=== PATIENT | male | born 1940 | race Caucasian/White ===

== ENCOUNTER 2016-09-08 18:29 | Inpatient (IN) | payer MEDICARE ==
--- NOTE | 2016-09-08 19:16 | Emergency Department Record ---
History of Present Illness - General Chief complaint: Weakness Stated complaint: WEAK/FEVER Time Seen by Provider: 09/08/16 19:15 Source: Patient Mode of Arrival: EMS Limitations: No limitations - History of Present Illness Initial comments: The patient is here due to not feeling well for one day. He was doing very well earlier in the day and did develop a cough last evening. Later this evening he developed weakness all over with a fever and now is unable to ambulate. He was going up and down the stairs this AM but now is to weak to get up and walk around the room. His cough is worse but is not productive of any sputum. He does deny any CP, SOB, or AP. MD Complaint: Generalized weakness Onset/Timin -: Days(s) Location: Generalized Severity scale (1-10): 5 Quality: Aching Consistency: Constant - Related Data Home Medications Medication Instructions Recorded Confirmed Last Taken Ferrous Sulfate 325 mg PO DAILY 03/24/16 03/24/16 03/24/16 Losartan Potassium [Cozaar] 25 mg PO DAILY 03/24/16 03/24/16 03/24/16 Magnesium Oxide [Mag Ox] 400 mg PO BID 03/24/16 03/24/16 03/24/16 Metformin HCl 1,000 mg PO BID 03/24/16 03/24/16 03/24/16 Metoprolol Tartrate 12.5 mg PO BID 03/24/16 03/24/16 03/24/16 Potassium Chloride [Klor-Con] 10 meq PO DAILY 03/24/16 03/24/16 03/24/16 Simvastatin [Zocor] 40 mg PO QHS 03/24/16 03/24/16 03/24/16 Tamsulosin HCl 1 cap PO DAILY 03/25/16 03/25/16 Unknown Timolol Maleate [Timoptic] 1 drop EACH EYE BID 03/25/16 03/25/16 Unknown Previous Rx's Medication Instructions Recorded Enoxaparin Sodium [Lovenox] 40 mg SQ DAILY syr 03/26/16 Nystatin 15 gm TOP ASDIR PRN #0 cream 03/26/16 Insulin Detemir [Levemir Flextouch] 45 units SQ QAM #0 04/15/16 Levofloxacin [Levaquin] 500 mg PO Q48H #6 tablet 04/15/16 Allergies Allergy/AdvReac Type Severity Reaction Status Date / Time No Known Drug Allergies Allergy Verified 09/08/16 18:33 Travel Screening - Travel/Exposure Within Last 30 Days Have you traveled within the last 30 days?: No - Travel Symptoms Symptom Screening: None Review of Systems Constitutional: Reports: Chills, Fever, Malaise Eyes: Denies: Eye discharge ENT: Reports: Congestion Respiratory: Reports: Cough. Denies: Dyspnea Cardiovascular: Denies: Arrhythmia, Chest pain Endocrine: Reports: Fatigue Gastrointestinal: Denies: Diarrhea, Vomiting Genitourinary: Denies: Dysuria Musculoskeletal: Denies: Arthralgia Skin: Denies: Bruising Past Medical History - SOCIAL HISTORY Smoking Status: Former smoker - RESPIRATORY Hx Respiratory Disorders: No - CARDIOVASCULAR Hx Cardio Disorders: Yes Hx Hypertension: Yes Hx Vascular Disease: Yes - NEURO Hx Neuro Disorders: Yes Hx Seizures: No - GI Hx GI Disorders: No - Hx Genitourinary Disorders: Yes Comment:: incontinentnce issues - ENDOCRINE Hx Endocrine Disorders: Yes Hx Diabetes: Yes Hx Thyroid Disease: No - MUSCULOSKELETAL Hx Musculoskeletal Disorders: Yes Hx Arthritis: Yes - PSYCH Hx Psych Problems: No - HEMATOLOGY/ONCOLOGY Hx Hematology/Oncology Disorders: Yes Hx Cancer: Yes (multiple myeloma) Hx Chemotherapy: Yes Hx Radiation Therapy: No Family Medical History Any Significant Family History?: Yes Hx Cancer: Brother/Sister Hx Heart Disease: Father, Mother Physical Exam - General General Appearance: Alert, Oriented x3, Cooperative, No acute distress - Head Head exam: Atraumatic, Normocephalic, Normal inspection - Eye Eye exam: Normal appearance, PERRL - ENT Throat exam: Normal inspection. negative: Tonsillar erythema, Tonsillar exudate - Neck Neck exam: Normal inspection, Full ROM. negative: Tenderness - Respiratory Respiratory exam: Normal lung sounds bilaterally. negative: Respiratory distress - Cardiovascular Cardiovascular Exam: Regular rate, Normal rhythm, Normal heart sounds - GI/Abdominal GI/Abdominal exam: Soft, Normal bowel sounds. negative: Tenderness - Extremities Extremities exam: Normal inspection, Full ROM, Normal capillary refill, Pedal edema (chronic.). negative: Tenderness - Neurological Neurological exam: Abnormal gait, Alert. negative: Motor sensory deficit, Normal gait - Psychiatric Psychiatric exam: negative: Anxious, Depressed Course Vital Signs 09/08/16 18:34 Temperature 102.6 F H Pulse Rate 60 Respiratory 24 Rate Blood Pressure 113/54 Pulse Ox 94 L - Reevaluation(s) Reevaluation #1: The patient is doing a little better but is still coughing and very weak. I did explain the results of the tests to him and family. Due to the extent of his illness I did recommend hospital admission and he agrees. I then did discuss the case with DR. Garcia and he accepts the admission. 09/08/16 20:38 Medical Decision Making - Data Complexity MDM Data: Labs Ordered and/or Reviewed, X-Ray Ordered and/or Reviewed - Lab Data Result diagrams: 09/08/16 18:53 09/08/16 18:53 - Radiology Data Radiology results: Report reviewed (CXR: Neg.) Disposition Disposition: Admit Clinical Impression: Pneumonia Qualifiers: Pneumonia type: due to unspecified organism Laterality: unspecified laterality Lung location: unspecified part of lung Qualified Code(s): J18.9 - Pneumonia, unspecified organism Disposition: Still a Patient at [facility] Decision to Admit: Admit from ER Decision to Admit Date: 09/08/16 Decision to Admit Time: 20:40 Accepting Physician: Radha Time Discussed w/Accepting Physician: 20:40 Condition: (2) Stable Forms: Patient Portal Access Time of Disposition: 20:40
[2016-09-08] MEDS ORDERED: ACETAMINOPHEN 325 MG TAB PO ONE (19:20)
[2016-09-08] MEDS ORDERED: 0.9 % SODIUM CHLORIDE 1,000 ML BAG IV ONE (19:21)
[2016-09-08 19:29] LABS: HEMATOCRIT 33.7 % (42.0-52.0); MEAN CELL VOLUME 86.4 fl (81-97); MEAN CORPUSCULAR HEMOGLOBIN 28.2 pg (27-33); MEAN CORPUSCULAR HGB CONC 32.6 g/dl (32-36); MEAN PLATELET VOLUME 12.5 fl (7.4-10.4); PLATELET COUNT 115 K/uL (130-400); RED CELL DISTRIBUTION WIDTH 16.7 % (11.5-14.5); WHITE BLOOD COUNT W/O DIFF 4.2 K/uL (4.2-12.2)
[2016-09-08 19:38] LABS: PLATELET ESTIMATE NORMAL (NORMAL)
[2016-09-08 19:41] LABS: ANION GAP 15.2 (7-16); CARBON DIOXIDE 24.8 mmol/L (22-30); CREATININE 1.5 mg/dL (0.66-1.25)
[2016-09-08 19:56] LABS: INFLUENZA A NEGATIVE (NEGATIVE); INFLUENZA B NEGATIVE (NEGATIVE)
[2016-09-08 20:10] LABS: URINE APPEARANCE CLEAR; URINE BILIRUBIN NEGATIVE (NEGATIVE); URINE BLOOD NEGATIVE (NEGATIVE); URINE COLOR YELLOW; URINE KETONE NEGATIVE (NEGATIVE); URINE LEUKOCYTE ESTERASE NEGATIVE (NEGATIVE); URINE NITRITE NEGATIVE (NEGATIVE); URINE PROTEIN NEGATIVE (NEGATIVE); URINE UROBILINOGEN 0.2 E.U./dL (0.20 - 1.00)
[2016-09-08 20:12] LABS: URINE GLUCOSE (UA) >=1000 mg/dL (NEGATIVE)
[2016-09-08] MEDS ORDERED: CEFTRIAXONE SODIUM 1 GM in 0.9 % SODIUM CHLORIDE 100ML 100 ML IVPB ONE (20:24)
[2016-09-08] MEDS ORDERED: OSTELTAMIVIR 75 MG CAP PO ONE (20:24)
[2016-09-08] MEDS ORDERED: AZITHROMYCIN 500 MG in 0.9 % SODIUM CHLORIDE 250ML 250 ML IVPB ONE (20:24)
[2016-09-08] MEDS ORDERED: PROPYLENE GLYCOL OP SCH (21:14)
[2016-09-08] MEDS ORDERED: LENALIDOMIDE 10 MG PO SCH (21:14)
[2016-09-08] MEDS ORDERED: PEG OP SCH (21:14)
[2016-09-08] MEDS ORDERED: TIMOLOL MALEATE EACH EYE SCH (22:00)
[2016-09-08] MEDS: 0.9 % SODIUM CHLORIDE 1000ML 1,000 ML IV PRN (22:14)
[2016-09-08] MEDS: CEFTRIAXONE SODIUM 1 GM in 0.9 % SODIUM CHLORIDE 100ML 100 ML IVPB SCH (22:14)
[2016-09-08] MEDS: METOPROLOL TART 25 MG TABLET PO SCH (22:15)
[2016-09-08] MEDS: IPRATROPIUM/ALBUTEROL (0.5MG/3MG) NEB INH SCH (22:27)
[2016-09-09] MEDS: Non-Formulary MISC (Metformin Hcl [Metformin Hcl] 1,000 MG) PO SCH ×2 (00:15→12:18)
[2016-09-09] MEDS: MAGNESIUM OXIDE 400 MG TABLET PO SCH ×3 (00:15→21:37)
[2016-09-09] MEDS: AZITHROMYCIN 500 MG in 0.9 % SODIUM CHLORIDE 250ML 250 ML IVPB SCH ×2 (00:16→00:50)
[2016-09-09] MEDS: IPRATROPIUM/ALBUTEROL (0.5MG/3MG) NEB INH SCH ×6 (02:45→21:38)
[2016-09-09] MEDS: PANTOPRAZOLE SODIUM 40 MG TABLET PO SCH (06:08)
[2016-09-09 06:38] LABS: HEMATOCRIT 33.7 % (42.0-52.0); HEMOGLOBIN 10.5 gm/dl (14.0-18.0); MEAN CELL VOLUME 89.2 fl (81-97); MEAN CORPUSCULAR HGB CONC 31.2 g/dl (32-36); MEAN PLATELET VOLUME 12.2 fl (7.4-10.4); PLATELET COUNT 115 K/uL (130-400); RED BLOOD COUNT 3.78 M/uL (4.40-5.70); RED CELL DISTRIBUTION WIDTH 17.2 % (11.5-14.5); WHITE BLOOD COUNT W/O DIFF 3.9 K/uL (4.2-12.2)
[2016-09-09 06:43] LABS: MEAN CORPUSCULAR HEMOGLOBIN 27.7 pg (27-33)
[2016-09-09 06:49] LABS: ALB/GLOB RATIO 1.6 (1.1-1.8); ALBUMIN 3.6 gm/dL (3.5-5.0); ANION GAP 14.9 (7-16); BILIRUBIN,TOTAL 0.44 mg/dL (0.2-1.3); CARBON DIOXIDE 25.1 mmol/L (22-30); CREATININE 1.5 mg/dL (0.66-1.25); TOTAL PROTEIN 5.8 gm/dL (6.3-8.2)
[2016-09-09 06:50] LABS: PLATELET ESTIMATE NORMAL (NORMAL)
--- NOTE | 2016-09-09 07:23 | RADIOLOGY REPORT ---
EXAM: CHEST, TWO VIEWS HISTORY: SORE THROAT, ACUTE NONPRODUCTIVE COUGH. TECHNIQUE: Two views of the chest were obtained. Comparison: Chest x-ray 03/24/16. FINDINGS: Sternotomy wires are present. The lungs are clear. The cardiomediastinal silhouette is top normal in size. The diaphragm is unremarkable. Moderate to advanced disk disease in the thoracic spine. IMPRESSION: NO ACUTE INTRATHORACIC PROCESS. JOB NUMBER: [id number] MTDD
[2016-09-09] MEDS: LEVEMIR FLEXTOUCH 100 UNIT/ML INSULIN PEN SQ SCH (08:25)
[2016-09-09] MEDS ORDERED: ACETAMINOPHEN 325 MG TAB PO PRN (08:56)
[2016-09-09] MEDS: CEFTRIAXONE SODIUM 1 GM in 0.9 % SODIUM CHLORIDE 100ML 100 ML IVPB SCH ×2 (09:54→21:27)
[2016-09-09] MEDS ORDERED: INSULIN ASPART 7 UNIT SQ SCH (10:00)
[2016-09-09] MEDS ORDERED: FUROSEMIDE 20 MG TABLET PO SCH (10:00)
[2016-09-09] MEDS ORDERED: LEVEMIR FLEXTOUCH 100 UNIT/ML INSULIN PEN SQ SCH (10:00)
[2016-09-09] MEDS ORDERED: Non-Formulary MISC (Omeprazole [Omeprazole] 20 MG) PO SCH (10:00)
[2016-09-09] MEDS: OSTELTAMIVIR 75 MG CAP PO SCH ×2 (11:09→21:36)
[2016-09-09] MEDS: FERROUS SULFATE 325 MG TAB PO SCH (11:09)
[2016-09-09] MEDS: LOSARTAN POTASSIUM 25 MG TABLET PO SCH (11:09)
[2016-09-09] MEDS: TAMSULOSIN HCL 0.4 MG CAP.ER.24H PO SCH (11:09)
[2016-09-09] MEDS: ASPIRIN 325 MG TAB ENTERIC-COATED PO SCH (11:10)
[2016-09-09] MEDS: ENOXAPARIN 30 MG/0.3 ML SYR SQ SCH (11:10)
[2016-09-09] MEDS: METOPROLOL TART 25 MG TABLET PO SCH ×2 (11:10→21:37)
[2016-09-09] MEDS: TIMOLOL MALEATE 0.5% 5ML BTL OPTH SCH ×2 (11:40→21:38)
[2016-09-09] MEDS: METFORMIN 500 MG TABLET PO SCH ×2 (12:15→17:25)
[2016-09-09] MEDS: NOVOLOG FLEXPEN (INSULIN ASPART) 100 UNITS/ML SQ SCH ×2 (12:15→17:26)
[2016-09-09] MEDS ORDERED: NOVOLOG FLEXPEN (INSULIN ASPART) 100 UNITS/ML SQ SCH ×2 (17:00→18:00)
[2016-09-09] MEDS: 0.9 % SODIUM CHLORIDE 1000ML 1,000 ML IV PRN (21:31)
[2016-09-10] MEDS ORDERED: AZITHROMYCIN 500 MG in 0.9 % SODIUM CHLORIDE 250ML 250 ML IVPB SCH (00:30)
[2016-09-10] MEDS: IPRATROPIUM/ALBUTEROL (0.5MG/3MG) NEB INH SCH ×2 (06:09→09:57)
[2016-09-10] MEDS: PANTOPRAZOLE SODIUM 40 MG TABLET PO SCH (07:09)
[2016-09-10] MEDS: METFORMIN 500 MG TABLET PO SCH (08:24)
[2016-09-10] MEDS: LEVEMIR FLEXTOUCH 100 UNIT/ML INSULIN PEN SQ SCH (08:26)
[2016-09-10] MEDS: CEFTRIAXONE SODIUM 1 GM in 0.9 % SODIUM CHLORIDE 100ML 100 ML IVPB SCH (08:29)
[2016-09-10] MEDS: METOPROLOL TART 25 MG TABLET PO SCH (09:50)
[2016-09-10] MEDS: ENOXAPARIN 30 MG/0.3 ML SYR SQ SCH (09:51)
[2016-09-10] MEDS: MAGNESIUM OXIDE 400 MG TABLET PO SCH (09:51)
[2016-09-10] MEDS: ASPIRIN 325 MG TAB ENTERIC-COATED PO SCH (09:51)
[2016-09-10] MEDS: FERROUS SULFATE 325 MG TAB PO SCH (09:51)
[2016-09-10] MEDS: LOSARTAN POTASSIUM 25 MG TABLET PO SCH (09:51)
[2016-09-10] MEDS: OSTELTAMIVIR 75 MG CAP PO SCH (09:51)
[2016-09-10] MEDS: TAMSULOSIN HCL 0.4 MG CAP.ER.24H PO SCH (09:51)
[2016-09-10] MEDS: TIMOLOL MALEATE 0.5% 5ML BTL OPTH SCH (09:52)
[2016-09-10] MEDS: NOVOLOG FLEXPEN (INSULIN ASPART) 100 UNITS/ML SQ SCH (12:11)
--- NOTE | 2016-09-10 13:50 | Discharge Note ---
Discharge Note - Date Date of Discharge Note: 09/10/16 Disposition: Home, Self-Care Condition: (1) Good Additional Instructions: follow up with Dr. Osman next monday as scheduled per call the cancer Dr. Han to inform them what happened use levemir at 30 units per day and if his glucose goes increase to 35 units zithromycin 500 mg daily for 7 days tamiflu 75 mg twice a day for 3 days restart bactrim three times a week after the zithromycin is gone Prescriptions: Azithromycin 500 mg PO DAILY #7 tablet Oseltamivir Phosphate [Tamiflu] 75 mg PO BID #6 capsule Referrals: BERENICE RAMIRES D.O. [Primary Care Provider] - Forms: Patient Portal Access Activity at Discharge: Increase Activity as Tolerated Diet at Discharge: Diabetic Diet
[2016-09-11] MEDS ORDERED: LEVEMIR FLEXTOUCH 100 UNIT/ML INSULIN PEN SQ SCH (08:00)
--- NOTE | 2016-09-12 08:24 | History and Physical Report ---
DATE OF DICTATION: 09/09/2016. CHIEF COMPLAINT: Fever, cough, congestion. HISTORY OF PRESENT ILLNESS: This 76-year-old male presented to the emergency department with congestion, weakness, a cough, and a fever. His is his caregiver and she states that the congestion started two days ago. The cough started about 24 hours prior to coming to the emergency room. The fever started the day of admission. He was so weak he could not walk. He was evaluated in the emergency department by Dr. Kearney. Because of his debilitated state and his symptoms, he was admitted to the hospital for infection, bronchitis, possible pneumonia. Chest x-ray was negative. The patient was given Tylenol and fluids. PAST MEDICAL HISTORY: Multiple myeloma diagnosed in March of 2016. He is being treated by Dr. Ham, the oncologist at [facility]. He has diabetes mellitus and is on Levemir, NovoLog, and metformin. He has gastroesophageal reflux disease and glaucoma. He had a cerebrovascular accident in 2011. That caused short-term memory loss and also affected his speech and right-sided weakness. However, this has resolved. He had an aortic valve replacement in 2011 with a pig valve. He is not on any anticoagulants. He has stage 3 kidney disease. His next appointment with his family physician, Dr. Osman, is next Monday. He was supposed to see his doctor today. He has an insole rasper for diabetic retinopathy, [employer] [facility]. Low back pain. PAST SURGICAL HISTORY: Aortic valve replacement with a pig valve in 2011, tonsils and adenoids as a child, right knee replacement, rectal surgery, bone marrow biopsy in March of 2016 when he got his diagnosis of multiple myeloma. MEDICATIONS ON ADMISSION: He uses NovoLog to scale, but he only uses the scale at noon time and at dinnertime. He uses Levemir 35 units every morning, omeprazole 20 mg q. daily, magnesium oxide 400 mg b.i.d., Lasix 20 mg daily, aspirin 325 mg a day. He uses Bactrim prophylactically to prevent opportunist infections three times a week. We will stop that while he is in the hospital getting treatment. Ferrous sulfate 325 mg daily. He uses Artificial Tears for dry eyes, Timoptic one drop each eye b.i.d., tamsulosin 0.4 mg daily, Losartan 25 mg daily, metoprolol tartrate 12.5 mg b.i.d. He uses chemotherapy capsules; a regimen of 21 days. He then uses Decadron after the regimen of Revlimid. He takes metformin 1,000 mg b.i.d. ALLERGIES: No known drug allergies. FAMILY/PSYCHOSOCIAL HISTORY: His brother and sister had cancer. His father and mother had heart disease. He is a former smoker; cigars and pipes. He quit in 2004. No alcohol or drug use. REVIEW OF SYSTEMS: HEENT: See Chief Complaint. He had congestion for two days and a cough for 24 hours. No sore throat. Cardiovascular: No chest pain, palpitations, or arrhythmias. Respiratory: He has had a cough for 24 hours and a fever. He is an ex-smoker; he quit in 2004. Gastrointestinal: No nausea, vomiting, diarrhea, black stools, or bloody stools. Genitourinary: No dysuria, hematuria, frequency, or burning on urination. Musculoskeletal: No joint or bone abnormalities. He is walking to the bathroom now and sitting in a chair. Neurologic: No cerebrovascular accident, paralysis, or paraesthesias. He does have dementia. He is oriented to name but not time or place. Endocrine: Diabetes mellitus. No hypothyroidism. Integument: No rash, ulcers, changing moles, or yellow skin. Hematologic: He has multiple myeloma diagnosed in March of 2016. PHYSICAL EXAMINATION: General: Height is 5 feet, 3 inches. Weight is 182 pounds. Vital Signs: Temperature is 100.6, pulse is 62, blood pressure is 101/46, respiratory rate is 60, pulse oximetry is 98% on room air. HEENT: Pupils are equal, round, and reactive to light and accommodation. Extraocular muscles are intact. The throat is clear. The nose is clear. The tympanic membranes are álvarez. There is congestion in the sinuses. He has a hoarse voice. He has a cough. Neck: The neck is supple. No jugular venous distension. Carotid pulses are equal bilaterally. Cardiovascular: Regular rate and rhythm without murmurs, clicks, rubs, or gallops. Respiratory: He has a cough and congestion. Abdomen: Soft and nontender. No hepatosplenomegaly. No masses. No tenderness. Bowel sounds are active. No bruit. Extremities: No pitting edema. No cyanosis. No clubbing. Full range of motion. Peripheral pulses are good. Breasts: Normal male breasts. Rectal and Genitalia Examination: Deferred. Neurological Examination: Cranial nerves II through XII are intact. No gross defect. Sensation is normal. Strength is normal. Deep tendon reflexes are equal bilaterally. Babinski is negative. Mental Status: He is oriented to his name but not to time and place. IMPRESSIONS: 1. Viral bronchitis. 2. Fever. 3. Dementia, vascular, after a stroke in 2011. 4. Diabetes mellitus, on insulin with Levemir, NovoLog, and metformin. He is a type 2 diabetic. 5. Multiple myeloma, undergoing treatment with chemotherapy with Revlimid which he is on 21 days and off 7 days. He then uses Decadron during his chemotherapy. 6. He also has benign prostatic hyperplasia. 7. He has stage 3 kidney disease. 8. Gastroesophageal reflux disease. 9. Glaucoma. 10. Hypertension. PLAN: Intravenous Rocephin, intravenous azithromycin, oral Tamiflu 75 mg b.i.d. , and cautious hydration. Oxygen and DuoNeb treatments. Tanner Garcia D.O. Date Time JOB NUMBER: [id number] MTDD
--- NOTE | 2016-09-12 13:33 | Discharge Summary ---
DISCHARGE DIAGNOSES: 1. Viral bronchitis. 2. Diabetes mellitus, type 2. 3. Dementia. 4. Status post multiple myeloma. 5. Status post gastroesophageal reflux disease. 6. Status post aortic valve replacement. 7. Status post glaucoma. ATTENDING PHYSICIAN: Tanner Garcia D.O. REASON FOR HOSPITALIZATION: Congestion and cough which started two days prior. HISTORY OF THE PRESENT ILLNESS: The cough got much worse one day prior to admission. He came to the emergency department and was seen by Dr. Kearney. He was admitted to the hospital for possible pneumonia, a fever, weakness, and an inability to ambulate. The patient has a history of multiple myeloma. His oncologist is Dr. Ham at [facility]. His primary physician is Dr. Varun Osman. The patient had a fever on and off for the first 24 hours in the hospital. He is afebrile now. He is eating, drinking, and walking to the bathroom without any difficulties. His , Nicole, is in the room with him. SIGNIFICANT FINDINGS FROM EXAMINATION: LABORATORY DATA: White blood cell count in the emergency department was 4,200, hemoglobin was 11.0. Potassium was 4.2. BUN was 40 and creatinine was 1.5. His glucose was a little bit high at 307. His white count yesterday was 3,900. Hemoglobin was 10.5. The potassium remained at 4.3. His glucose did go a little bit low. He was taking a little bit of extra insulin here. Initially in the computer it said that he was taking 45 units of Levemir insulin a day. However, his tells me that he was only taking 30 units a day. His sugar did drop down this morning to 47. It was at 754 this morning. He was given some food and it came up to 58. DIAGNOSTIC DATA: Chest x-ray was negative. THERAPY PROVIDED: The patient was given therapy in the hospital. He was given intravenous Rocephin 1.0 gm q. 12 hours, azithromycin 500 mg q. daily, Tamiflu 75 mg b.i.d. Will continue that for five days and will continue the azithromycin. HOSPITAL COURSE: He gradually improved. CONDITION AT DISCHARGE: Much improved. DISCHARGE INSTRUCTIONS: Follow up with Dr. Varun Osman in [place] next week or sooner if he is having troubles. He has an appointment on Monday. His Levemir should be at 30 units a day. Will give him his 30 units today prior to discharge at around noontime. He is also on omeprazole 20 mg q. daily and magnesium oxide 400 mg b.i.d. Lasix 20 mg q. daily will be restarted at home. Aspirin 325 mg q. daily. When he is off his antibiotics that we are prescribing he can go back on his Bactrim three times a week. This is a prophylactic medication because of his multiple myeloma. Ferrous sulfate 325 mg q. daily, Timolol optic eye drops one drop in each eye b.i.d. Tamsulosin 0.4 mg q. daily, Losartan 25 mg q. daily, metoprolol tartrate 12.5 mg b.i.d., and metformin 1,000 mg b.i.d. He will also continue his Revlimid the way he was scheduled to take it prior to coming into the hospital. This is his cancer medication. Tanner Garcia D.O. Date Time JOB NUMBER: [id number] cc: Jaclyn Biggs
[2016-09-15] MEDS ORDERED: DEXAMETHASONE 20 MG PO SCH (10:00)
== END 2016-09-10 14:55 | disposition home or self-care (01) | DRG 202 ==
LOC: ER 18:29 → MEDSURG 21:11
PROVIDERS: ADMIT Emergency Medicine; ATTEND Emergency Medicine
DX: R50.9 Fever, unspecified (principal); R05 Cough; R53.1 Weakness; J20.9 Acute bronchitis, unspecified; J20.8 Acute bronchitis due to other specified organisms; E11.9 Type 2 diabetes mellitus without complications; C90.00 Multiple myeloma not having achieved remission; I69.911 Memory deficit following unspecified cerebrovascular disease; I69.919 Unspecified symptoms and signs involving cognitive functions following unspecified cerebrovascular disease; F01.50 Vascular dementia, unspecified severity, without behavioral disturbance, psychotic disturbance, mood disturbance, and anxiety; E11.319 Type 2 diabetes mellitus with unspecified diabetic retinopathy without macular edema; Z79.84 Long term (current) use of oral hypoglycemic drugs; I69.920 Aphasia following unspecified cerebrovascular disease; Z95.2 Presence of prosthetic heart valve; N18.3 Chronic kidney disease, stage 3 (moderate); Z79.4 Long term (current) use of insulin; I10 Essential (primary) hypertension
CPT/HCPCS: 36416; 71020; 80048; 80053; 81003; 82948; 85027; 86140; 87400; 94640; 94760; 96365; 99223; 99239; 99285; J0456; J1650; J7030; J7050

== ENCOUNTER 2016-11-15 14:59 | Inpatient (IN) | payer MEDICARE ==
--- NOTE | 2016-11-15 15:24 | Emergency Department Record ---
History of Present Illness - General Chief complaint: Hypergylcemia Stated complaint: ELEVATED SUGAR LEVEL Time Seen by Provider: 11/15/16 15:17 Source: Patient Mode of Arrival: Ambulatory - History of Present Illness Initial comments: The patient has been running "high" on his blood sugar today. Around 11:30 he was in the mid 400's and now his accu- check reads "high.' he states he feels fine otherwise. He is urinating a lot, but states he always does. He denies f, c , n, v, d, cp, cisco, ap, or other symptoms. He is scheduled to have a renal stent placed on . Onset/Timin -: Days(s) Improves with: None Worsens with: None Associated Symptoms: Denies other symptoms - [place] Coma Scale Eye Response: (4) Open spontaneously Motor Response: (6) Obeys commands Verbal Response: (5) Oriented Ayse Total: 15 - Related Data Home Medications Medication Instructions Recorded Confirmed Last Taken Ferrous Sulfate 325 mg PO DAILY 03/24/16 11/15/16 03/24/16 Losartan Potassium [Cozaar] 25 mg PO DAILY 03/24/16 11/15/16 03/24/16 Magnesium Oxide [Mag Ox] 400 mg PO BID 03/24/16 11/15/16 03/24/16 Metformin HCl 1,000 mg PO BID 03/24/16 11/15/16 03/24/16 Metoprolol Tartrate 12.5 mg PO BID 03/24/16 11/15/16 03/24/16 Tamsulosin HCl 0.4 mg PO DAILY 03/25/16 11/15/16 Unknown Timolol Maleate [Timoptic] 1 drop EACH EYE BID 03/25/16 11/15/16 Unknown Aspirin/Calcium Carbonate/Mag 325 mg PO DAILY 09/08/16 11/15/16 Unknown [Aspirin Buffered 325 mg Tab] Furosemide [Lasix] 20 mg PO DAILY 09/08/16 11/15/16 Unknown Insulin Aspart [Novolog Flexpen] See Protocol SQ 1200,1700 09/08/16 11/15/16 Insulin Aspart [Novolog] 7 units SQ 1700 09/08/16 11/15/16 Unknown Omeprazole 20 mg PO DAILY 09/08/16 11/15/16 Unknown Propylene Glycol/Peg 400/Pf 1 each OP ASDIR 09/08/16 11/15/16 Unknown [Systane 0.3-0.4% Eye Drops] Previous Rx's Medication Instructions Recorded Insulin Detemir [Levemir Flextouch] 30 units SQ QAM #0 09/10/16 Allergies Allergy/AdvReac Type Severity Reaction Status Date / Time No Known Drug Allergies Allergy Verified 09/08/16 18:33 Travel Screening - Travel/Exposure Within Last 30 Days Have you traveled within the last 30 days?: No Review of Systems Reviewed: No additional complaints except as noted below Constitutional: Reports: As per HPI. Denies: Chills, Fever, Malaise, Night sweats, Weakness, Weight change Eyes: Reports: As per HPI. Denies: Eye discharge, Eye pain, Photophobia, Vision change ENT: Reports: As per HPI. Denies: Congestion, Dental pain, Ear pain, Epistaxis , Hearing loss, Throat pain Respiratory: Reports: As per HPI. Denies: Cough, Dyspnea, Hemoptysis, Stridor, Wheezes Cardiovascular: Reports: As per HPI. Denies: Arrhythmia, Chest pain, Dyspnea on exertion, Edema, Murmurs, Orthopnea, Palpitations, Paroxysmal nocturnal dyspnea, Rheumatic Fever, Syncope Endocrine: Reports: As per HPI. Denies: Fatigue, Heat or cold intolerance, Polydipsia, Polyuria Gastrointestinal: Reports: As per HPI. Denies: Abdominal pain, Constipation, Diarrhea, Hematemesis, Hematochezia, Melena, Nausea, Vomiting Genitourinary: Reports: As per HPI. Denies: Dysuria, Frequency, Hematuria, Incontinence, Retention, Testicular pain, Testicular mass, Urgency Musculoskeletal: Reports: As per HPI. Denies: Arthralgia, Back pain, Gout, Joint swelling, Myalgia, Neck pain Skin: Reports: As per HPI. Denies: Bruising, Change in color, Change in hair/ nails, Lesions, Pruritus, Rash Neurological: Reports: As per HPI. Denies: Abnormal gait, Confusion, Headache, Numbness, Paresthesias, Seizure, Tingling, Tremors, Vertigo, Weakness Psychiatric: Reports: As per HPI. Denies: Anxiety, Auditory hallucinations, Depression, Homicidal thoughts, Suicidal thoughts, Visual hallucinations Hematological/Lymphatic: Reports: As per HPI. Denies: Anemia, Blood Clots, Easy bleeding, Easy bruising, Swollen glands Past Medical History - SOCIAL HISTORY Smoking Status: Former smoker Alcohol Use: None Drug Use: None - RESPIRATORY Hx Respiratory Disorders: Yes Hx Bronchitis: Yes Hx Pneumonia: Yes - CARDIOVASCULAR Hx Cardio Disorders: Yes Hx Hypertension: Yes Hx Vascular Disease: Yes Comment:: aortic valve replacement 2011 - NEURO Hx Neuro Disorders: Yes Hx CVA: Yes (2011) - GI Hx GI Disorders: Yes Hx Reflux: Yes - Hx Genitourinary Disorders: Yes Hx Kidney Stones: Yes Hx Renal Disease: Yes (stage 3 kidney failure) - ENDOCRINE Hx Endocrine Disorders: Yes Hx Diabetes: Yes Hx Thyroid Disease: No Comment:: blood sugars a little high due to steroids around 200 - MUSCULOSKELETAL Hx Musculoskeletal Disorders: Yes Hx Arthritis: Yes - PSYCH Hx Psych Problems: No - HEMATOLOGY/ONCOLOGY Hx Hematology/Oncology Disorders: Yes Hx Cancer: Yes (multiple myeloma dx's ) Hx Chemotherapy: Yes Hx Radiation Therapy: No Comment:: doing chemo tx in remission. Family Medical History Any Significant Family History?: Yes Hx Cancer: Brother/Sister Hx Heart Disease: Father, Mother Physical Exam - General General Appearance: Alert, Oriented x3, Cooperative, No acute distress - Head Head exam: Normal inspection - Eye Eye exam: Normal appearance, PERRL Pupils: Normal accommodation - ENT ENT exam: Normal exam, Mucous membranes moist, Normal external ear exam, Normal orophraynx, TM's normal bilaterally Ear exam: Normal external inspection. negative: External canal tenderness Nasal Exam: Normal inspection. negative: Discharge, Sinus tenderness Mouth exam: Normal external inspection, Tongue normal Teeth exam: Normal inspection. negative: Dental caries Throat exam: Normal inspection. negative: Tonsillar erythema, Tonsillar exudate - Neck Neck exam: Normal inspection, Full ROM. negative: Tenderness - Respiratory Respiratory exam: Normal lung sounds bilaterally. negative: Respiratory distress - Cardiovascular Cardiovascular Exam: Regular rate, Normal rhythm, Normal heart sounds - GI/Abdominal GI/Abdominal exam: Soft, Normal bowel sounds. negative: Tenderness - Rectal Rectal exam: Deferred - exam: Deferred - Extremities Extremities exam: Normal inspection, Full ROM, Normal capillary refill. negative: Tenderness - Back Back exam: Reports: Normal inspection, Full ROM. Denies: Muscle spasm, Rash noted, Tenderness - Neurological Neurological exam: Alert, Normal gait, Oriented X3, Reflexes normal - Psychiatric Psychiatric exam: Normal affect, Normal mood - Skin Skin exam: Dry, Intact, Normal color, Warm Course Vital Signs 11/15/16 15:08 Temperature 97.4 F L Pulse Rate 61 Respiratory 20 Rate Blood Pressure 113/86 Pulse Ox 99 - Reevaluation(s) Reevaluation #1: Patient and both prefer to stay overnight in order to control his blood sugar. 11/15/16 18:34 Reevaluation #2: DW Dr. Huggins who states that Karly is administration vice president. Spoke with Karly who gave orders per phone and will call floor later this evening for clarifications. 11/15/16 18:58 Medical Decision Making - Management Options MDM Management: Additional Work-up Planned (e.g. ADM/Transfer/OP Study) ( admission Dr. Huggins) - Data Complexity MDM Data: Labs Ordered and/or Reviewed, EKG Ordered and/or Reviewed - Lab Data Result diagrams: 11/15/16 15:16 11/15/16 15:16 - EKG Data -: EKG Interpreted by [place] EKG: No Acute Changes, Unchanged From Previous (prior of 03-24-16) Disposition Disposition: Admit Clinical Impression: Diabetes mellitus Qualifiers: Diabetes mellitus type: type 2 Diabetes mellitus complication status: without complication Diabetes mellitus detention insulin use: with truck terminal manager use Qualified Code(s): E11.9 - Type 2 diabetes mellitus without complications Hyperglycemia due to type 2 diabetes mellitus Qualifiers: Diabetes mellitus truck terminal manager insulin use: with truck terminal manager use Qualified Code(s): E11.65 - Type 2 diabetes mellitus with hyperglycemia Disposition: Still a Patient at [facility] [place] Decision to Admit: Admit from ER Decision to Admit Date: 11/15/16 Decision to Admit Time: 18:59 Time Discussed w/Accepting Physician: 18:59 Condition: (1) Good
[2016-11-15] MEDS ORDERED: 0.9 % SODIUM CHLORIDE 500ML 500 ML IV SCH (15:30)
[2016-11-15 15:40] LABS: HEMATOCRIT 33.2 % (42.0-52.0); HEMOGLOBIN 10.8 gm/dl (14.0-18.0); MEAN CELL VOLUME 88.5 fl (81-97); MEAN CORPUSCULAR HEMOGLOBIN 28.8 pg (27-33); MEAN CORPUSCULAR HGB CONC 32.5 g/dl (32-36); MEAN PLATELET VOLUME 10.7 fl (7.4-10.4); PLATELET COUNT 147 K/uL (130-400); RED BLOOD COUNT 3.75 M/uL (4.40-5.70); RED CELL DISTRIBUTION WIDTH 16.2 % (11.5-14.5); WHITE BLOOD COUNT W/O DIFF 4.7 K/uL (4.2-12.2)
[2016-11-15 15:51] LABS: PLATELET ESTIMATE NORMAL (NORMAL)
[2016-11-15 15:53] LABS: URINE APPEARANCE CLEAR; URINE BILIRUBIN NEGATIVE (NEGATIVE); URINE BLOOD NEGATIVE (NEGATIVE); URINE COLOR YELLOW; URINE KETONE NEGATIVE (NEGATIVE); URINE LEUKOCYTE ESTERASE NEGATIVE (NEGATIVE); URINE NITRITE NEGATIVE (NEGATIVE); URINE PROTEIN NEGATIVE (NEGATIVE); URINE UROBILINOGEN 0.2 E.U./dL (0.20 - 1.00)
[2016-11-15 15:55] LABS: LACTIC ACID 2.2 mmol/L (0.7-2.1); URINE GLUCOSE (UA) >=1000 mg/dL (NEGATIVE)
[2016-11-15 15:56] LABS: ACETONE,SERUM NEGATIVE (NEGATIVE)
[2016-11-15 16:04] LABS: BLOOD UREA NITROGEN 44 mg/dL (9-20); CREATININE 1.7 mg/dL (0.66-1.25); EST GLOMERULAR FILTRATION RATE 42 ml/min; GLUCOSE,RANDOM 679 mg/dL (70-110)
[2016-11-15 16:05] LABS: CREATINE PHOSPHOKINASE 33 U/L (55-170)
[2016-11-15 16:07] LABS: TROPONIN I < 0.012 ng/mL (0.00-0.034)
[2016-11-15] MEDS ORDERED: NOVOLOG FLEXPEN (INSULIN ASPART) 100 UNITS/ML SQ ONE (16:39)
[2016-11-15] MEDS ORDERED: 0.9 % SODIUM CHLORIDE 1,000 ML BAG IV ONE (16:40)
[2016-11-15] MEDS ORDERED: HUMULIN R 100 UNIT/ML VIAL SQ ONE (16:43)
[2016-11-15] MEDS ORDERED: INSULIN REGULAR, HUMAN 100 UNIT in 0.9 % SODIUM CHLORIDE 100ML 100 ML IV SCH ×2 (20:00)
[2016-11-15] MEDS ORDERED: AL HYDROX/MAG HYDROX 30ML UD PO PRN (20:00)
[2016-11-15] MEDS ORDERED: ACETAMINOPHEN 500 MG TABLET PO PRN (20:00)
[2016-11-16] MEDS: METOPROLOL TART 25 MG TABLET PO SCH ×3 (00:10→22:12)
[2016-11-16] MEDS: 0.9 % SODIUM CHLORIDE 1000ML 1,000 ML IV PRN ×3 (01:38→22:18)
[2016-11-16] MEDS: PANTOPRAZOLE SODIUM 40 MG TABLET PO SCH (06:02)
[2016-11-16 06:40] LABS: HEMATOCRIT 28.9 % (42.0-52.0); HEMOGLOBIN 9.5 gm/dl (14.0-18.0); MEAN CELL VOLUME 87.6 fl (81-97); MEAN CORPUSCULAR HGB CONC 32.9 g/dl (32-36); MEAN PLATELET VOLUME 9.8 fl (7.4-10.4); PLATELET COUNT 123 K/uL (130-400); RED CELL DISTRIBUTION WIDTH 16.1 % (11.5-14.5); WHITE BLOOD COUNT W/O DIFF 5.3 K/uL (4.2-12.2)
[2016-11-16 06:41] LABS: MEAN CORPUSCULAR HEMOGLOBIN 28.7 pg (27-33)
[2016-11-16 07:11] LABS: ALB/GLOB RATIO 1.3 (1.1-1.8); ALBUMIN 3.1 gm/dL (3.5-5.0); ALKALINE PHOSPHATASE 89 U/L (38-126); ALT/SGPT 34 U/L (21-72); ANION GAP 9.7 (7-16); AST/SGOT 12 U/L (17-59); BILIRUBIN,TOTAL 0.65 mg/dL (0.2-1.3); BLOOD UREA NITROGEN 35 mg/dL (9-20); CARBON DIOXIDE 22.3 mmol/L (22-30); CREATININE 1.2 mg/dL (0.66-1.25); EST GLOMERULAR FILTRATION RATE > 60 ml/min; GLUCOSE,RANDOM 203 mg/dL (70-110); TOTAL PROTEIN 5.5 gm/dL (6.3-8.2)
[2016-11-16 07:17] LABS: HYPOCHROMIA 1+; PLATELET ESTIMATE NORMAL (NORMAL)
--- NOTE | 2016-11-16 07:19 | History & Physical ---
Addendum entered and electronically signed by ENRIQUE WHITT N.P. 11/18/16 10:23: Admit to inpatient care: Based on my medical assessment, after consideration of patient's risk factors (age, co-morbidities and patient presenting symptoms and acuity), I expect that this patient will remain in the hospital greater than or equal to two midnights and that the services needed warrant inpatient care because: Patient Risk Factors: advanced age, hx CVA, hyperglycemia, bradycardai] Estimated length of stay: [72-96 hours] The patient may reasonably be expected to be discharged or transferred to a hospital within 96 hours after admission to [facility]. Services needed: [insulin drip, IVF, renal stent placement as previously scheduled, diabetic management, nutrition consult] Post hospital care (if known): [] I certify that my determination is in accordance with my understanding of Medicare requirements for reasonable and necessary inpatient services. Original Note: History of Present Illness - Date of Service Date of Service for History & Physical: 11/16/16 - History of Present Illness Admitting Diagnosis: Type II Diabetic with hyperglycemia; multiple myeloma; renal insufficiency History of Present Illness: 76 y/o male admitted for hyperglycemia and dehydration. PMX: DM II, multiple myeloma dx Mar 2016, former smoker, pneumonia, bronchitis, AVR 2011, CVA 2011, CKD stage 3, arthritis Majority of history obtained from as patient with memory imparment s/p CVA: Prior to arrival patient was home alone as usual, last meal in the am included bread, took his morning Levemir 32 units. About 1130 check blood sugar per regimen and reports was 460 and took 10 units Levemir. Called his to check in due to high blood sugar, she called the neighbor to check in on him, rechecked his blood sugar and meter read "HI" and brought to ED. Due to memory impairment s/p CVA patient calls at work every day to check in, report blood sugars and verify he its taking the right amount of insulin. This plan has been successful up until today. Current regimen is checking blood sugars TID which are usually 130-200 consistently. Is currently taking Dexamethasone 20mg Q Monday for MM which has brought blood sugars as high as 500, but never sustained over 1 or 2 readings. Patient did take his Dexamethasone dose the day of ED visit. reports insulin regimen is: Levemir 32 units Q am Levemir 10 units at lunch if blood sugar is >200 Levemir 10 units at dinner if blood sugar is >200 Novolog 7 units after dinner Also had gastroenteritis last week with 2-3 day history of profuse, water diarrhea, currently has kidney stone right kidney awaiting stent placement tomorrow by Dr Nieves and Metformin has been on hold the last few days. While in the ED initial blood glucose 679, given 10 units regular insulin with subsequent blood glucose of 557. Insulin drip at 7u/hr initiated. CXR negative for acute process, EKG NSR unchanged from previous study 03/2016. WBC normal with left shift, Hgb 10.8, Plt 147, K 4.7, BUN 44, Cr. 1.7, GRF 42. Urine with >1,000 mg/dl glucose, ketones negative, leukocyte/nitrated negative. Lactic acid 2.2 with only slight elevation, Venous pH 7.3 .9%NS @ 125ml/hr initiation for hydration. Patient arrived and has remained A&O x 3, yet very [place]. Transferred to floor in stable condition for management of hyperglycemia and dehydration with continued insulin drip until blood glucose falls below 250 , accu checks q 2 hours, telemetry. After arriving to the floor accu check was 179 at 2330, per protocol insulin drip DC'd, continue accu check q 2 hrs and use sliding scale 11/16/16- resting comfortably in bed, denies complaint. at bedside offering complete medical history as well as HPI. Eating 100% breakfast. Call and message left for Dr Osman regarding what the current insulin regimen is as ordered by his office. Discrepancy of insulin type and dosing per report and home med rec. PCP: Dr Varun Osman Oncologist: Dr Champ Garcia [facility] [employer] Salesperson: Dr Villaseñor, [facility] Nephrology Travel Screening - Travel/Exposure Within Last 30 Days Have you traveled within the last 30 days?: No Review of Systems Constitutional: Reports: As per HPI. Denies: Chills, Fever, Malaise, Night sweats, Weakness, Weight change Eyes: Reports: As per HPI. Denies: Eye discharge, Eye pain, Photophobia, Vision change ENT: Reports: As per HPI. Denies: Congestion, Dental pain, Ear pain, Epistaxis , Hearing loss, Throat pain Respiratory: Reports: As per HPI. Denies: Cough, Dyspnea, Hemoptysis, Stridor, Wheezes Cardiovascular: Reports: As per HPI. Denies: Arrhythmia, Chest pain, Dyspnea on exertion, Edema, Murmurs, Orthopnea, Palpitations, Paroxysmal nocturnal dyspnea, Rheumatic Fever, Syncope Endocrine: Reports: As per HPI. Denies: Fatigue, Heat or cold intolerance, Polydipsia, Polyuria Gastrointestinal: Reports: As per HPI. Denies: Abdominal pain, Constipation, Diarrhea, Hematemesis, Hematochezia, Melena, Nausea, Vomiting Genitourinary: Reports: As per HPI. Denies: Dysuria, Frequency, Hematuria, Incontinence, Retention, Testicular pain, Testicular mass, Urgency Musculoskeletal: Reports: As per HPI. Denies: Arthralgia, Back pain, Gout, Joint swelling, Myalgia, Neck pain Skin: Reports: As per HPI. Denies: Bruising, Change in color, Change in hair/ nails, Lesions, Pruritus, Rash Neurological: Reports: As per HPI. Denies: Abnormal gait, Confusion, Headache, Numbness, Paresthesias, Seizure, Tingling, Tremors, Vertigo, Weakness Psychiatric: Reports: As per HPI. Denies: Anxiety, Auditory hallucinations, Depression, Homicidal thoughts, Suicidal thoughts, Visual hallucinations Hematological/Lymphatic: Reports: As per HPI. Denies: Anemia, Blood Clots, Easy bleeding, Easy bruising, Swollen glands Past Medical History - SOCIAL HISTORY Smoking Status: Former smoker Alcohol Use: None Drug Use: None - RESPIRATORY Hx Respiratory Disorders: Yes Hx Bronchitis: Yes Hx Pneumonia: Yes - CARDIOVASCULAR Hx Cardio Disorders: Yes Hx Hypertension: Yes Hx Vascular Disease: Yes Comment:: aortic valve replacement 2011 - NEURO Hx Neuro Disorders: Yes Hx CVA: Yes (2011) - GI Hx GI Disorders: Yes Hx Reflux: Yes - Hx Genitourinary Disorders: Yes Hx Kidney Stones: Yes Hx Renal Disease: Yes (stage 3 kidney failure) Comment:: scheduled for surgery 11/17/16 renal stent - ENDOCRINE Hx Endocrine Disorders: Yes Hx Diabetes: Yes Hx Thyroid Disease: No Comment:: blood sugars a little high due to steroids around 200 - MUSCULOSKELETAL Hx Musculoskeletal Disorders: Yes Hx Arthritis: Yes - PSYCH Hx Psych Problems: No - HEMATOLOGY/ONCOLOGY Hx Hematology/Oncology Disorders: Yes Hx Cancer: Yes (multiple myeloma dx's ) Hx Chemotherapy: Yes Hx Radiation Therapy: No Comment:: doing chemo tx in remission. Family Medical History Any Significant Family History?: Yes Hx Cancer: Brother/Sister Hx Heart Disease: Father, Mother H&P Meds/Allergies - Allergies Allergies: Allergies Allergy/AdvReac Type Severity Reaction Status Date / Time No Known Drug Allergies Allergy Verified 09/08/16 18:33 - Home Medications Home Medications Medication Instructions Recorded Confirmed Last Taken Ferrous Sulfate 325 mg PO DAILY 03/24/16 11/15/16 03/24/16 Losartan Potassium [Cozaar] 25 mg PO DAILY 03/24/16 11/15/16 03/24/16 Magnesium Oxide [Mag Ox] 400 mg PO BID 03/24/16 11/15/16 03/24/16 Metformin HCl 1,000 mg PO BID 03/24/16 11/15/16 03/24/16 Metoprolol Tartrate 12.5 mg PO BID 03/24/16 11/15/16 03/24/16 Tamsulosin HCl 0.4 mg PO DAILY 03/25/16 11/15/16 Unknown Timolol Maleate [Timoptic] 1 drop EACH EYE BID 03/25/16 11/15/16 Unknown Aspirin/Calcium Carbonate/Mag 325 mg PO DAILY 09/08/16 11/15/16 Unknown [Aspirin Buffered 325 mg Tab] Furosemide [Lasix] 20 mg PO DAILY 09/08/16 11/15/16 Unknown Insulin Aspart [Novolog Flexpen] 10 unit SQ 1200,1700 09/08/16 11/15/16 09/08/16 Insulin Aspart [Novolog] 7 units SQ 1700 09/08/16 11/15/16 Unknown Omeprazole 20 mg PO DAILY 09/08/16 11/15/16 Unknown Propylene Glycol/Peg 400/Pf 1 each OP ASDIR 09/08/16 11/15/16 Unknown [Systane 0.3-0.4% Eye Drops] Insulin Detemir [Levemir Flextouch] 11/15/16 Unknown Insulin Detemir [Levemir Flextouch] 11/15/16 Unknown Insulin Detemir [Levemir Flextouch] 32 unit SQ DAILY 11/15/16 11/15/16 11/15/16 0500 Previous Rx's Medication Instructions Recorded Insulin Detemir [Levemir Flextouch] 30 units SQ QAM #0 09/10/16 - Active Medications Active Medications: Current Medications Acetaminophen (Tylenol 500mg Tab) 500 mg PO Q6H PRN PRN Reason: PAIN/TEMP Al Hydroxide/Mg Hydroxide (Maalox) 30 ml PO Q4H PRN PRN Reason: GI UPSET Aspirin (Ecotrin (Ec)) 325 mg PO DAILY NA Ferrous Sulfate (Iron) 325 mg PO DAILY [facility] Insulin Human Regular 100 unit (/ Sodium Chloride) 101 mls @ 7.07 mls/hr IV TITRATE NA; 7 UNITS/HR PRN Reason: Protocol Last Admin: 11/15/16 21:36 Dose: 7.07 mls/hr Sodium Chloride () 1,000 mls @ 125 mls/hr IV .Q8H PRN PRN Reason: LARGE VOLUME IV Last Admin: 11/16/16 01:38 Dose: 125 mls/hr Insulin Aspart (Novolog Flexpen) 7 unit SQ QHS [facility] Insulin Aspart (Novolog Flexpen) 10 unit SQ WMEALS PRN PRN Reason: BS >200 Insulin Detemir (Levemir Flextouch) 30 unit SQ QAM [facility] Losartan Potassium (Cozaar) 25 mg PO DAILY [facility] Metformin HCl (Glucophage Ir) 1,000 mg PO BIDWM [facility] Metoprolol Tartrate (Lopressor) 12.5 mg PO BID [facility] Last Admin: 11/16/16 00:10 Dose: Not Given Non-Formulary Medication (Timolol Maleate [Timoptic]) 1 drop EACH EYE BID [facility] Pantoprazole Sodium (Protonix) 40 mg PO DAILYAC [facility] Last Admin: 11/16/16 06:02 Dose: 40 mg Polyethylene Glycol (Miralax) 17 gm PO DAILY PRN PRN Reason: CONSTIPATION Tamsulosin HCl (Flomax) 0.4 mg PO DAILY [facility] Physical Exam - Vital Signs Vital Signs: Vital Signs - Last 24 Hrs Temp Pulse Resp BP Pulse Ox 11/16/16 06:00 97.9 F 53 L 20 112/57 100 11/16/16 00:00 97.5 F L 46 L 18 136/57 100 11/15/16 21:00 12 - General General Appearance: Alert, Oriented x3, Cooperative, No acute distress - Head Head exam: Normal inspection - Eye Eye exam: Normal appearance, PERRL Pupils: Normal accommodation - ENT ENT exam: Normal exam, Mucous membranes moist, Normal external ear exam, Normal orophraynx, TM's normal bilaterally Ear exam: Normal external inspection. negative: External canal tenderness Nasal Exam: Normal inspection. negative: Discharge, Sinus tenderness Mouth exam: Normal external inspection, Tongue normal Teeth exam: Normal inspection. negative: Dental caries Throat exam: Normal inspection. negative: Tonsillar erythema, Tonsillar exudate - Neck Neck exam: Normal inspection, Full ROM. negative: Tenderness - Respiratory Respiratory exam: Normal lung sounds bilaterally. negative: Respiratory distress - Cardiovascular Cardiovascular Exam: Regular rate, Normal rhythm, Normal heart sounds - GI/Abdominal GI/Abdominal exam: Soft, Normal bowel sounds. negative: Tenderness - Rectal Rectal exam: Deferred - exam: Deferred - Extremities Extremities exam: Normal inspection, Full ROM, Normal capillary refill. negative: Tenderness - Back Back exam: Reports: Normal inspection, Full ROM. Denies: Muscle spasm, Rash noted, Tenderness - Neurological Neurological exam: Alert, Normal gait, Oriented X3, Reflexes normal - Psychiatric Psychiatric exam: Normal affect, Normal mood, Other (some word finding diffuculty, poor historian) - Skin Skin exam: Dry, Intact, Normal color, Warm Results - Labs Result Diagrams: 11/16/16 05:45 11/16/16 05:45 Labs Last 24 Hours: Laboratory Results - last 24 hr 11/15/16 11/15/16 11/15/16 21:25 22:20 22:25 WBC RBC Hgb Hct MCV MCH MCHC RDW Plt Count MPV Eosinophils % Basophils % POC Glucose 338 H 271 H 271 H 11/15/16 11/16/16 11/16/16 23:20 01:20 05:45 WBC 5.3 RBC 3.30 L Hgb 9.5 L Hct 28.9 L MCV 87.6 MCH 28.7 MCHC 32.9 RDW 16.1 H Plt Count 123 L MPV 9.8 Eosinophils % Not Reportable Basophils % Not Reportable POC Glucose 179 H 172 H - Imaging and Cardiology Chest x-ray Status: Report reviewed (no acute process) VTE H&P Assessment - Risk for VTE Risk for VTE: Yes Risk Level: Moderate Risk Assessment Date: 11/16/16 Risk Assessment Time: 13:22 VTE Orders Placed or Will Be Placed: Yes Plan - Inpatient Certification Inpatient Certification: Admit to inpatient care: Based on my medical assessment, after consideration of patient's risk factors (age, co-morbidities and patient presenting symptoms and acuity), I expect that this patient will remain in the hospital greater than or equal to two midnights and that the services needed warrant inpatient care because: Patient Risk Factors: [] Estimated length of stay: [] The patient may reasonably be expected to be discharged or transferred to a hospital within 96 hours after admission to [facility]. Services needed: [] Post hospital care (if known): [] I certify that my determination is in accordance with my understanding of Medicare requirements for reasonable and necessary inpatient services. - Detailed Diagnosis and Plan (1) Hyperglycemia due to type 2 diabetes mellitus Current Visit: Yes Status: Acute Qualifiers: Diabetes mellitus alf insulin use: with long term care social worker use Qualified Code(s): E11.65 - Type 2 diabetes mellitus with hyperglycemia; Z79.4 - skilled nursing (current) use of insulin Base Code: E11.65 - TYPE 2 DIABETES MELLITUS WITH HYPERGLYCEMIA Comment: 11/16/16- hyperglycemia in the absence of ketones and acidosis. Likely etiology weekly Dexamethasone dosing every Monday for MM, recent gatroenteritis underlying dehydration and current holding of Metformin for renal stent procedure 11/17/16. Per conversation with Gissel at Dr Osman's office current insulin regimen is Levemir 30 units Q am (35 units in the morning the day of his Dexamethasone dose), Levemir 10 units at lunch if blood sugar is > 200 Levemir 10 units at dinner if blood sugar is >200 Novolog 7 units after dinner. - Insulin drip discontinued when blood sugar drops below 250 - initate Levemir 15 units q pm with plan to add Levemir 15 units q am should FBS be above 250 - change accu checks from q 2 hrs to AC/HS with moderate sliding scale coverage - will see how he tolerated initiation of long acting insulin before returning to regular home regimen (2) DVT prophylaxis Current Visit: No Status: Acute Base Code: [id number] - Comment: 11/16/16- patient at high risk for DVT with age, hx CVA -Lovenox 40mg SQ QD (3) Full code status Current Visit: Yes Status: Acute Base Code: Z78.9 - OTHER SPECIFIED HEALTH STATUS Comment: 11/16/16- Patient is full code status
--- NOTE | 2016-11-16 07:21 | RADIOLOGY REPORT ---
EXAM: CHEST, TWO VIEWS HISTORY: ABNORMAL BLOOD SUGAR. TECHNIQUE: Frontal and lateral views of the chest were obtained. Comparison: Prior chest x-ray from 09/08/16. FINDINGS: The heart size is stable. Stable post surgical change with atheromatous change of the thoracic aorta. Osteopenia. Minor fibrotic changes bilaterally. No pneumothorax. IMPRESSION: NO ACUTE CARDIOPULMONARY PROCESS. JOB NUMBER: [id number] MTDD
[2016-11-16 07:23] LABS: TROPONIN I < 0.012 ng/mL (0.00-0.034)
[2016-11-16] MEDS ORDERED: METFORMIN 500 MG TABLET PO SCH (08:00)
[2016-11-16] MEDS ORDERED: NOVOLOG FLEXPEN (INSULIN ASPART) 100 UNITS/ML SQ PRN (08:00)
[2016-11-16] MEDS: LOSARTAN POTASSIUM 25 MG TABLET PO SCH (09:28)
[2016-11-16] MEDS: FERROUS SULFATE 325 MG TAB PO SCH (09:28)
[2016-11-16] MEDS: TAMSULOSIN HCL 0.4 MG CAP.ER.24H PO SCH (09:28)
[2016-11-16] MEDS: ASPIRIN 325 MG TAB ENTERIC-COATED PO SCH (09:28)
[2016-11-16] MEDS ORDERED: POLYETHYLENE GLY 17 GM PACKET PO PRN (10:00)
[2016-11-16] MEDS ORDERED: LEVEMIR FLEXTOUCH 100 UNIT/ML INSULIN PEN SQ SCH ×2 (10:00→22:00)
[2016-11-16] MEDS: NOVOLOG FLEXPEN (INSULIN ASPART) 100 UNITS/ML SQ PRN ×2 (11:42→13:19)
[2016-11-16] MEDS: NOVOLOG FLEXPEN (INSULIN ASPART) 100 UNITS/ML SQ SCH ×2 (17:20→22:13)
[2016-11-16] MEDS: REVLIMID 10 MG PO SCH (18:57)
[2016-11-16] MEDS ORDERED: NOVOLOG FLEXPEN (INSULIN ASPART) 100 UNITS/ML SQ SCH (22:00)
[2016-11-16] MEDS: TIMOLOL MALEATE 0.5% 5ML BTL OPTH SCH (22:12)
[2016-11-16] MEDS: LEVEMIR FLEXTOUCH 100 UNIT/ML INSULIN PEN SQ SCH (22:13)
--- NOTE | 2016-11-17 07:27 | Physician Progress Note ---
Subjective - Date Date of Physician Progress Note: 11/17/16 - Subjective Subjective Comment: Denies complaint, no new nursing concerns, is eating 100% meals. Events in the last 24 hours: Levemir 15 units to begin last night at HS but was held due to upcoming renal stent placement scheduled today by Dr Nieves for kidney stone, plan to slowly reinitiate insulin now that patient is hydrated and begin Levemir 15 units tonight 1700 glucose 132 2000 glucose 200 Objective - Vital Signs Vital Signs: Vital Signs - Last 24 Hrs Temp Pulse Resp BP Pulse Ox 11/17/16 05:29 97.6 F 63 18 139/63 97 11/16/16 21:50 97.9 F 53 L 18 129/73 97 11/16/16 21:00 18 11/16/16 18:00 97.4 F L 50 L 12 108/54 100 11/16/16 14:00 97.4 F L 48 L 12 103/54 99 11/16/16 10:00 97.4 F L 56 L 14 108/68 99 11/16/16 08:25 20 - General General Appearance: Alert, Oriented x3, Cooperative, No acute distress - Head Head exam: Normal inspection - Eye Eye exam: Normal appearance, PERRL Pupils: Normal accommodation - ENT ENT exam: Normal exam, Mucous membranes moist, Normal external ear exam, Normal orophraynx, TM's normal bilaterally Ear exam: Normal external inspection. negative: External canal tenderness Nasal Exam: Normal inspection. negative: Discharge, Sinus tenderness Mouth exam: Normal external inspection, Tongue normal Teeth exam: Normal inspection. negative: Dental caries Throat exam: Normal inspection. negative: Tonsillar erythema, Tonsillar exudate - Neck Neck exam: Normal inspection, Full ROM. negative: Tenderness - Respiratory Respiratory exam: Normal lung sounds bilaterally. negative: Respiratory distress - Cardiovascular Cardiovascular Exam: Regular rate, Normal rhythm, Normal heart sounds - GI/Abdominal GI/Abdominal exam: Soft, Normal bowel sounds. negative: Tenderness - Rectal Rectal exam: Deferred - exam: Deferred - Extremities Extremities exam: Normal inspection, Full ROM, Normal capillary refill. negative: Tenderness - Back Back exam: Reports: Normal inspection, Full ROM. Denies: Muscle spasm, Rash noted, Tenderness - Neurological Neurological exam: Alert, Normal gait, Oriented X3, Reflexes normal - Psychiatric Psychiatric exam: Normal affect, Normal mood, Other (some word finding diffuculty, poor historian) - Skin Skin exam: Dry, Intact, Normal color, Warm Assessment and Plan - Assessment and Plan (1) Hyperglycemia due to type 2 diabetes mellitus Current Visit: Yes Status: Acute Qualifiers: Diabetes mellitus superintendent marine oil terminal insulin use: with superintendent marine oil terminal use Qualified Code(s): E11.65 - Type 2 diabetes mellitus with hyperglycemia; Z79.4 - terminal carman (current) use of insulin Base Code: E11.65 - TYPE 2 DIABETES MELLITUS WITH HYPERGLYCEMIA Comment: 11/17/16- hyperglycemia in the absence of ketones and acidosis. Likely etiology weekly Dexamethasone dosing every Monday for MM, recent gatroenteritis underlying dehydration and current holding of Metformin for renal stent procedure 11/17/16. Per conversation with Gissel at Dr Osman's office current insulin regimen is Levemir 30 units Q am (35 units in the morning the day of his Dexamethasone dose), Levemir 10 units at lunch if blood sugar is > 200 Levemir 10 units at dinner if blood sugar is >200 Novolog 7 units after dinner. - A1C 9.27 - initate Levemir 15 units q pm with plan to double to 30 units should FBS be above 250 - plan to slowly reinitiate insulin now that patient is hydrated to keep blood sugars below 250 and follow up with PCP for monitoring - accu check AC/HS with moderate sliding scale coverage - will see how he tolerated initiation of long acting insulin before returning to regular home regimen (2) DVT prophylaxis Current Visit: No Status: Acute Base Code: [id number] - Comment: 11/17/16- patient at high risk for DVT with age, hx CVA -Lovenox 40mg SQ QD (3) Full code status Current Visit: Yes Status: Acute Base Code: Z78.9 - OTHER SPECIFIED HEALTH STATUS Comment: 11/17/16- Patient is full code status Results - Labs Result Diagrams: 11/16/16 05:45 11/16/16 05:45 Labs Last 24 Hours: Laboratory Results - last 24 hr 11/16/16 11/16/16 11/16/16 05:45 11:11 13:10 Sodium 139 Potassium 3.5 Chloride 107 Carbon Dioxide 22.3 Anion Gap 9.7 BUN 35 H Creatinine 1.2 Estimated GFR > 60 POC Glucose 355 H 335 H Random Glucose 203 H Calcium 9.2 Total Bilirubin 0.65 AST 12 L ALT 34 Alkaline Phosphatase 89 Troponin I < 0.012 Total Protein 5.5 L Albumin 3.1 L Globulin 2.4 Albumin/Globulin Ratio 1.3 11/16/16 11/16/16 16:51 20:45 Sodium Potassium Chloride Carbon Dioxide Anion Gap BUN Creatinine Estimated GFR POC Glucose 132 H 200 H Random Glucose Calcium Total Bilirubin AST ALT Alkaline Phosphatase Troponin I Total Protein Albumin Globulin Albumin/Globulin Ratio DVT/PE Assessment - Risk for VTE Risk for VTE: No Risk Level: Moderate Risk Assessment Date: 11/16/16 Risk Assessment Time: 13:22 VTE Orders Placed or Will Be Placed: Yes - Active Medicaitons Current Medications: Current Medications Acetaminophen (Tylenol 500mg Tab) 500 mg PO Q6H PRN PRN Reason: PAIN/TEMP Al Hydroxide/Mg Hydroxide (Maalox) 30 ml PO Q4H PRN PRN Reason: GI UPSET Aspirin (Ecotrin (Ec)) 325 mg PO DAILY [facility] Last Admin: 11/16/16 09:28 Dose: 325 mg Enoxaparin Sodium (Lovenox) 40 mg SQ DAILY [facility] Ferrous Sulfate (Iron) 325 mg PO DAILY [facility] Last Admin: 11/16/16 09:28 Dose: 325 mg Sodium Chloride () 1,000 mls @ 125 mls/hr IV .Q8H PRN PRN Reason: LARGE VOLUME IV Last Admin: 11/16/16 22:18 Dose: 125 mls/hr Cefazolin Sodium (Kefzol) 50 mls @ 100 mls/hr IVPB NOW ONE Stop: 11/17/16 14:44 Acetaminophen (Ofirmev) 100 mls @ 400 mls/hr IV NOW ONE Stop: 11/17/16 14:14 Insulin Aspart (Novolog Flexpen) 1 unit SQ QIDINS [facility] PRN Reason: Protocol Last Admin: 11/16/16 22:13 Dose: Not Given Insulin Detemir (Levemir Flextouch) 15 unit SQ QHS [facility] Last Admin: 11/16/16 22:13 Dose: Not Given Losartan Potassium (Cozaar) 25 mg PO DAILY [facility] Last Admin: 11/16/16 09:28 Dose: 25 mg Metformin HCl (Glucophage Ir) 1,000 mg PO BIDWM [facility] Metoprolol Tartrate (Lopressor) 12.5 mg PO BID [facility] Last Admin: 11/16/16 22:12 Dose: 12.5 mg Pantoprazole Sodium (Protonix) 40 mg PO DAILYAC [facility] Last Admin: 11/16/16 06:02 Dose: 40 mg Patient Own Med: (Revlimid 10 Mg) 1 each PO 1900 [facility] Last Admin: 11/16/16 18:57 Dose: 1 each Polyethylene Glycol (Miralax) 17 gm PO DAILY PRN PRN Reason: CONSTIPATION Tamsulosin HCl (Flomax) 0.4 mg PO DAILY [facility] Last Admin: 11/16/16 09:28 Dose: 0.4 mg Timolol Maleate (Timoptic) 1 drop OPTH BID [facility] Last Admin: 11/16/16 22:12 Dose: 1 drop AMI Plan - Labs Result Diagrams: 11/16/16 05:45 11/16/16 05:45
[2016-11-17] MEDS: METOPROLOL TART 25 MG TABLET PO SCH ×3 (07:51→22:10)
[2016-11-17] MEDS: LOSARTAN POTASSIUM 25 MG TABLET PO SCH ×2 (07:54→10:04)
[2016-11-17] MEDS: TAMSULOSIN HCL 0.4 MG CAP.ER.24H PO SCH ×2 (07:54→10:04)
[2016-11-17] MEDS: TIMOLOL MALEATE 0.5% 5ML BTL OPTH SCH ×3 (07:54→22:10)
[2016-11-17] MEDS: PANTOPRAZOLE SODIUM 40 MG TABLET PO SCH (07:58)
[2016-11-17] MEDS: NOVOLOG FLEXPEN (INSULIN ASPART) 100 UNITS/ML SQ SCH ×4 (09:50→22:41)
[2016-11-17] MEDS: ASPIRIN 325 MG TAB ENTERIC-COATED PO SCH (10:04)
[2016-11-17] MEDS: FERROUS SULFATE 325 MG TAB PO SCH (10:05)
[2016-11-17] MEDS: ENOXAPARIN 40 MG/0.4 ML SYR SQ SCH (10:06)
[2016-11-17] MEDS ORDERED: FENTANYL PF 100MCG/2ML VIAL IV ONE (14:00)
[2016-11-17] MEDS ORDERED: PROPOFOL 10 MG/ML VIAL IV ONE (14:00)
[2016-11-17] MEDS ORDERED: ACETAMINOPHEN 100 ML IV ONE (14:00)
[2016-11-17] MEDS ORDERED: MIDAZOLAM HCL 2MG/2ML VIAL IV ONE (14:00)
[2016-11-17] MEDS ORDERED: CEFAZOLIN 2 Gram 50 ML IVPB ONE (14:15)
[2016-11-17] MEDS: REVLIMID 10 MG PO SCH (18:53)
[2016-11-17] MEDS: LEVEMIR FLEXTOUCH 100 UNIT/ML INSULIN PEN SQ SCH (22:47)
--- NOTE | 2016-11-18 07:41 | Physician Progress Note ---
Subjective - Date Date of Physician Progress Note: 11/18/16 - Subjective Subjective Comment: Events over the last 24 hours Stent placement right kidney per Dr Nieves yesterday Returned from surgery BP 175/67, HR 45 Heart rate has been in the 50's with recent bradycardic drop of 39-40, asymptomatic Metoprolol held last night Has been asymptomatic Blood sugars below 250 with A1C 9.2 Objective - Vital Signs Vital Signs: Vital Signs - Last 24 Hrs Temp Pulse Resp BP BP Pulse Ox 11/18/16 05:23 42 L 12 133/59 97 11/18/16 02:00 97.5 F L 43 L 14 136/62 98 11/17/16 21:46 97.8 F 43 L 12 115/60 96 11/17/16 19:30 50 L 140/56 11/17/16 18:13 14 11/17/16 16:05 40 L 14 137/66 96 11/17/16 15:50 39 L 14 126/79 96 11/17/16 15:35 38 L 14 112/56 96 11/17/16 15:21 97.6 F 40 L 14 107/53 97 11/17/16 10:01 98 F 41 L 16 141/67 99 11/17/16 08:03 16 11/17/16 07:57 97.6 F 45 L 13 138/65 99 - General General Appearance: Alert, Oriented x3, Cooperative, No acute distress Limitations: 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 negative: External canal tenderness Nasal Exam: Normal inspection. negative: Discharge, Sinus tenderness Mouth exam: Normal external inspection, Tongue normal Teeth exam: Normal inspection. negative: Dental caries Throat exam: Normal inspection. negative: Tonsillar erythema, Tonsillar exudate - Neck Neck exam: Normal inspection, Full ROM. negative: Tenderness - Respiratory Respiratory exam: Normal lung sounds bilaterally. negative: Respiratory distress - Cardiovascular Cardiovascular Exam: Normal rhythm, Normal heart sounds, Bradycardia Peripheral Pulses: 3+: Dorsalis Pedis (R), Dorsalis Pedis (L) - GI/Abdominal GI/Abdominal exam: Soft, Normal bowel sounds. negative: Tenderness - Rectal Rectal exam: Deferred - exam: Deferred - Extremities Extremities exam: Normal inspection, Full ROM, Normal capillary refill. negative: Tenderness - Back Back exam: Reports: Normal inspection, Full ROM. Denies: Muscle spasm, Rash noted, Tenderness - Neurological Neurological exam: Alert, Normal gait, Oriented X3, Reflexes normal - Psychiatric Psychiatric exam: Normal affect, Normal mood, Other (some word finding diffuculty, poor historian) - Skin Skin exam: Dry, Intact, Normal color, Warm Assessment and Plan - Assessment and Plan (1) Hyperglycemia due to type 2 diabetes mellitus Current Visit: Yes Status: Acute Qualifiers: Diabetes mellitus long term care administrator insulin use: with long term care administrator use Qualified Code(s): E11.65 - Type 2 diabetes mellitus with hyperglycemia; Z79.4 - USP (current) use of insulin Base Code: E11.65 - TYPE 2 DIABETES MELLITUS WITH HYPERGLYCEMIA Comment: 11/18/16- hyperglycemia in the absence of ketones and acidosis. Likely etiology weekly Dexamethasone dosing every Monday for MM, recent gatroenteritis underlying dehydration and current holding of Metformin for renal stent procedure 11/17/16. Per conversation with Gissel at Dr Osman's office current insulin regimen is Levemir 30 units Q am (35 units in the morning the day of his Dexamethasone dose), Levemir 10 units at lunch if blood sugar is > 200 Levemir 10 units at dinner if blood sugar is >200 Novolog 7 units after dinner. - A1C 9.27 - initate Levemir 15 units q pm with plan to double to 30 units should FBS be above 250 - plan to slowly reinitiate insulin now that patient is hydrated to keep blood sugars below 250 and follow up with PCP for monitoring - accu check AC/HS with low sliding scale coverage, glucose 42 this am, was asymptomatic - will see how he tolerated initiation of long acting insulin before returning to regular home regimen - blood sugars have been more or less stable with the use of sliding scale and Levemir 15 units at bedtime following diabetic diet here and eating 100% meals. Likely meals on wheels is not providing diabetic friendly meals. - Is not allowing to help with insulin dosing at home, she is not sure if he is dosing himself correctly with the correct dose of insulin (2) Bradycardia Current Visit: Yes Status: Acute Base Code: R00.1 - BRADYCARDIA, UNSPECIFIED Comment: 11/18/16- Heart rate during stay has been 50-60 with recent decreases to 39-40. Has been on Metoprolo 12.5mg BID, hypertensive episode after returning from stent placement procedure yesterday wtih HR remaining in the 40' s. - SL IV - Metoprolol DC - Will use HCTZ for BP managemement - EKG, cardiac enzymes x 3, echo today - Spoke with Dr Ross (his housing case manager), and recommends transfer to EP service for pacemaker evaluation. One-call notified and waiting return call (3) DVT prophylaxis Current Visit: No Status: Acute Base Code: [id number] - Comment: 11/18/16- patient at high risk for DVT with age, hx CVA. Plateletes trendind down, 114 today. Is currently taking Revlemid for MM. Will hold Lovenox today and recheck plateletes in the am. -Lovenox 40mg SQ QD- hold 11/18 (4) Full code status Current Visit: Yes Status: Acute Base Code: Z78.9 - OTHER SPECIFIED HEALTH STATUS Comment: 11/18/16- Patient is full code status Results - Labs Result Diagrams: 11/18/16 07:40 11/18/16 07:40 Labs Last 24 Hours: Laboratory Results - last 24 hr 11/17/16 11/17/16 11/17/16 11:18 17:24 21:47 POC Glucose 220 H 208 H 177 H DVT/PE Assessment - Risk for VTE Risk for VTE: No Risk Level: Moderate Risk Assessment Date: 11/16/16 Risk Assessment Time: 13:22 VTE Orders Placed or Will Be Placed: Yes - Active Medicaitons Current Medications: Current Medications Acetaminophen (Tylenol 500mg Tab) 500 mg PO Q6H PRN PRN Reason: PAIN/TEMP Last Admin: 11/17/16 17:00 Dose: 500 mg Al Hydroxide/Mg Hydroxide (Maalox) 30 ml PO Q4H PRN PRN Reason: GI UPSET Aspirin (Ecotrin (Ec)) 325 mg PO DAILY [facility] Last Admin: 11/17/16 10:04 Dose: Not Given Enoxaparin Sodium (Lovenox) 40 mg SQ DAILY [facility] Last Admin: 11/17/16 10:06 Dose: Not Given Ferrous Sulfate (Iron) 325 mg PO DAILY [facility] Last Admin: 11/17/16 10:05 Dose: Not Given Hydrochlorothiazide (Hctz 25mg) 25 mg PO DAILY [facility] Insulin Aspart (Novolog Flexpen) 1 unit SQ QIDINS [facility] PRN Reason: Protocol Last Admin: 11/17/16 22:41 Dose: 8 unit Insulin Detemir (Levemir Flextouch) 15 unit SQ QHS [facility] Last Admin: 11/17/16 22:47 Dose: 15 unit Losartan Potassium (Cozaar) 25 mg PO DAILY [facility] Last Admin: 11/17/16 10:04 Dose: Not Given Metformin HCl (Glucophage Ir) 1,000 mg PO BIDWM [facility] Pantoprazole Sodium (Protonix) 40 mg PO DAILYAC [facility] Last Admin: 11/17/16 07:58 Dose: Not Given Patient Own Med: (Revlimid 10 Mg) 1 each PO 1900 [facility] Last Admin: 11/17/16 18:53 Dose: 1 each Polyethylene Glycol (Miralax) 17 gm PO DAILY PRN PRN Reason: CONSTIPATION Tamsulosin HCl (Flomax) 0.4 mg PO DAILY [facility] Last Admin: 11/17/16 10:04 Dose: Not Given Timolol Maleate (Timoptic) 1 drop OPTH BID [facility] Last Admin: 11/17/16 22:10 Dose: 1 drop AMI Plan - Labs Result Diagrams: 11/18/16 07:40 11/18/16 07:40
[2016-11-18 07:48] LABS: HEMATOCRIT 30.3 % (42.0-52.0); HEMOGLOBIN 9.8 gm/dl (14.0-18.0); MEAN CELL VOLUME 89.9 fl (81-97); MEAN CORPUSCULAR HGB CONC 32.3 g/dl (32-36); MEAN PLATELET VOLUME 10.4 fl (7.4-10.4); PLATELET COUNT 114 K/uL (130-400); RED BLOOD COUNT 3.37 M/uL (4.40-5.70); RED CELL DISTRIBUTION WIDTH 16.4 % (11.5-14.5); WHITE BLOOD COUNT W/O DIFF 4.1 K/uL (4.2-12.2)
[2016-11-18 08:02] LABS: ALB/GLOB RATIO 1.3 (1.1-1.8); ALBUMIN 3.1 gm/dL (3.5-5.0); ALKALINE PHOSPHATASE 69 U/L (38-126); ALT/SGPT 36 U/L (21-72); ANION GAP 7.9 (7-16); AST/SGOT 17 U/L (17-59); BILIRUBIN,TOTAL 0.45 mg/dL (0.2-1.3); BLOOD UREA NITROGEN 18 mg/dL (9-20); CARBON DIOXIDE 24.1 mmol/L (22-30); EST GLOMERULAR FILTRATION RATE > 60 ml/min; GLUCOSE,RANDOM 52 mg/dL (70-110); TOTAL PROTEIN 5.4 gm/dL (6.3-8.2)
[2016-11-18 08:03] LABS: PLATELET ESTIMATE NORMAL (NORMAL)
[2016-11-18] MEDS: NOVOLOG FLEXPEN (INSULIN ASPART) 100 UNITS/ML SQ SCH (08:07)
[2016-11-18] MEDS: PANTOPRAZOLE SODIUM 40 MG TABLET PO SCH (08:09)
[2016-11-18] MEDS ORDERED: HYDROCHLOROTHIAZIDE 25 MG TABLET PO SCH (10:00)
[2016-11-18] MEDS: ENOXAPARIN 40 MG/0.4 ML SYR SQ SCH (10:26)
[2016-11-18] MEDS ORDERED: NOVOLOG FLEXPEN (INSULIN ASPART) 100 UNITS/ML SQ SCH (10:35)
[2016-11-18] MEDS: TIMOLOL MALEATE 0.5% 5ML BTL OPTH SCH (10:40)
[2016-11-18] MEDS: ASPIRIN 325 MG TAB ENTERIC-COATED PO SCH (10:40)
[2016-11-18] MEDS: FERROUS SULFATE 325 MG TAB PO SCH (10:40)
[2016-11-18] MEDS: TAMSULOSIN HCL 0.4 MG CAP.ER.24H PO SCH (10:40)
[2016-11-18] MEDS: LOSARTAN POTASSIUM 25 MG TABLET PO SCH (10:40)
--- NOTE | 2016-11-18 16:01 | Discharge Summary ---
Providers Discharge Summary Date: 11/18/16 Date of admission: 11/15/16 19:35 Expected Date of Discharge: 11/18/16 Attending physician: ASCENCION SANCHEZ Primary care physician: BUDDY OSMAN D.O. Consults: Consult Orders 11/18/16 10:38 Consult NOW Consulting Provider: Maueren Machado Physician Instructions: Reason For Exam: hyperglycemia, help withe home management, MOW Physical Exam - Vital Signs Vital Signs: Vital Signs - Last 24 Hrs Temp Pulse Resp BP BP Pulse Ox 11/18/16 14:00 98.4 F 53 L 16 120/60 97 11/18/16 09:24 97.7 F 51 L 14 130/65 100 11/18/16 09:00 52 L 14 11/18/16 07:44 97.4 F L 42 L 12 149/65 99 11/18/16 05:23 42 L 12 133/59 97 11/18/16 02:00 97.5 F L 43 L 14 136/62 98 11/17/16 21:46 97.8 F 43 L 12 115/60 96 11/17/16 19:30 50 L 140/56 11/17/16 18:13 14 11/17/16 16:05 40 L 14 137/66 96 - General General Appearance: Alert, Oriented x3, Cooperative, No acute distress Limitations: 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 negative: External canal tenderness Nasal Exam: Normal inspection. negative: Discharge, Sinus tenderness Mouth exam: Normal external inspection, Tongue normal Teeth exam: Normal inspection. negative: Dental caries Throat exam: Normal inspection. negative: Tonsillar erythema, Tonsillar exudate - Neck Neck exam: Normal inspection, Full ROM. negative: Tenderness - Respiratory Respiratory exam: Normal lung sounds bilaterally. negative: Respiratory distress - Cardiovascular Cardiovascular Exam: Normal rhythm, Normal heart sounds, Bradycardia Peripheral Pulses: 3+: Dorsalis Pedis (R), Dorsalis Pedis (L) - GI/Abdominal GI/Abdominal exam: Soft, Normal bowel sounds. negative: Tenderness - Rectal Rectal exam: Deferred - exam: Deferred - Extremities Extremities exam: Normal inspection, Full ROM, Normal capillary refill. negative: Tenderness - Back Back exam: Reports: Normal inspection, Full ROM. Denies: Muscle spasm, Rash noted, Tenderness - Neurological Neurological exam: Alert, Normal gait, Oriented X3, Reflexes normal - Psychiatric Psychiatric exam: Normal affect, Normal mood, Other (some word finding diffuculty, poor historian) - Skin Skin exam: Dry, Intact, Normal color, Warm Hospitalization - Hospitalization Admission Diagnosis: Type II Diabetic with hyperglycemia; multiple myeloma; renal insufficiency - Problem List/Discharge Diagnosis (1) Hyperglycemia due to type 2 diabetes mellitus Current Visit: Yes Status: Acute Discharge Diagnosis: Diabetes mellitus intermediate frame tender insulin use: with intermediate frame tender use Qualified Code(s): E11.65 - Type 2 diabetes mellitus with hyperglycemia; Z79.4 - snf (current) use of insulin Base Code: E11.65 - TYPE 2 DIABETES MELLITUS WITH HYPERGLYCEMIA Comment: 11/18/16- hyperglycemia in the absence of ketones and acidosis. Likely etiology weekly Dexamethasone dosing every Monday for MM, recent gatroenteritis underlying dehydration and current holding of Metformin for renal stent procedure 11/17/16. Per conversation with Gissel at Dr Osman's office current insulin regimen is Levemir 30 units Q am (35 units in the morning the day of his Dexamethasone dose), Levemir 10 units at lunch if blood sugar is > 200 Levemir 10 units at dinner if blood sugar is >200 Novolog 7 units after dinner. - A1C 9.27 - initate Levemir 15 units q pm with plan to double to 30 units should FBS be above 250 - plan to slowly reinitiate insulin now that patient is hydrated to keep blood sugars below 250 and follow up with PCP for monitoring - accu check AC/HS with low sliding scale coverage, glucose 42 this am, was asymptomatic - will see how he tolerated initiation of long acting insulin before returning to regular home regimen - blood sugars have been more or less stable with the use of sliding scale and Levemir 15 units at bedtime following diabetic diet here and eating 100% meals. [facility]ely [employer] [facility] is not providing diabetic friendly meals. - Is not allowing to help with insulin dosing at home, she is not sure if he is dosing himself correctly with the correct dose of insulin (2) Bradycardia Current Visit: Yes Status: Acute Base Code: R00.1 - BRADYCARDIA, UNSPECIFIED Comment: 11/18/16- Heart rate during stay has been 50-60 with recent decreases to 39-40. Has been on Metoprolo 12.5mg BID, hypertensive episode after returning from stent placement procedure yesterday wtih HR remaining in the 40' s. - SL IV - Metoprolol DC - Will use HCTZ for BP managemement - EKG, cardiac enzymes x 3, echo today - Spoke with Dr Ross (his editor department), and recommends transfer to EP service for pacemaker evaluation - Transfer to [facility] under EP service Dr [place] (3) DVT prophylaxis Current Visit: No Status: Acute Base Code: [id number] - Comment: 11/18/16- patient at high risk for DVT with age, hx CVA. Plateletes trendind down, 114 today. Is currently taking Revlemid for MM. Will hold Lovenox today and recheck plateletes in the am. -Lovenox 40mg SQ QD- hold 11/18 (4) Full code status Current Visit: Yes Status: Acute Base Code: Z78.9 - OTHER SPECIFIED HEALTH STATUS Comment: 11/18/16- Patient is full code status - Hospitalization Course Disposition: Acute Care Hospital Transfer Hospital Course: 76 y/o male admitted for hyperglycemia and dehydration. PMX: DM II, multiple myeloma dx Mar 2016, former smoker, pneumonia, bronchitis, AVR 2011, CVA 2011, CKD stage 3, arthritis Majority of history obtained from as patient with memory imparment s/p CVA: Prior to arrival patient was home alone as usual, last meal in the am included bread, took his morning Levemir 32 units. About 1130 check blood sugar per regimen and reports was 460 and took 10 units Levemir. Called his to check in due to high blood sugar, she called the neighbor to check in on him, rechecked his blood sugar and meter read "HI" and brought to ED. Due to memory impairment s/p CVA patient calls at work every day to check in, report blood sugars and verify he its taking the right amount of insulin. This plan has been successful up until today. Current regimen is checking blood sugars TID which are usually 130-200 consistently. Is currently taking Dexamethasone 20mg Q Monday for MM which has brought blood sugars as high as 500, but never sustained over 1 or 2 readings. Patient did take his Dexamethasone dose the day of ED visit. reports insulin regimen is: Levemir 32 units Q am Levemir 10 units at lunch if blood sugar is >200 Levemir 10 units at dinner if blood sugar is >200 Novolog 7 units after dinner Also had gastroenteritis last week with 2-3 day history of profuse, water diarrhea, currently has kidney stone right kidney awaiting stent placement tomorrow by Dr Nieves and Metformin has been on hold the last few days. While in the ED initial blood glucose 679, given 10 units regular insulin with subsequent blood glucose of 557. Insulin drip at 7u/hr initiated. CXR negative for acute process, EKG NSR unchanged from previous study 03/2016. WBC normal with left shift, Hgb 10.8, Plt 147, K 4.7, BUN 44, Cr. 1.7, GRF 42. Urine with >1,000 mg/dl glucose, ketones negative, leukocyte/nitrated negative. Lactic acid 2.2 with only slight elevation, Venous pH 7.3 .9%NS @ 125ml/hr initiation for hydration. Patient arrived and has remained A&O x 3, yet very [place]. Transferred to floor in stable condition for management of hyperglycemia and dehydration with continued insulin drip until blood glucose falls below 250 , accu checks q 2 hours, telemetry. After arriving to the floor accu check was 179 at 2330, per protocol insulin drip DC'd, continue accu check q 2 hrs and use sliding scale 11/16/16- resting comfortably in bed, denies complaint. at bedside offering complete medical history as well as HPI. Eating 100% breakfast. Call and message left for Dr Osman regarding what the current insulin regimen is as ordered by his office. Discrepancy of insulin type and dosing per report and home med rec. PCP: Dr Buddy Osman Oncologist: Dr Champ [facility] Treater: [place], [facility] [place] Procedures: Cardiology Procedures 11/18/16 07:25 EKG NOW Echocardiogram 2D - Limited NOW 11/18/16 14:22 Telemetry [Deck Hand] .Continuous Abnormal Labs: Abnormal Lab Results 11/15/16 11/15/16 11/15/16 Range/Units 21:25 22:20 22:25 WBC (4.2-12.2) K/uL RBC (4.40-5.70) M/uL Hgb (14.0-18.0) gm/dl Hct (42.0-52.0) % RDW (11.5-14.5) % Plt Count (130-400) K/uL Lymphocytes % (16-45) % Monocytes % (0-9) % Eosinophils % (0-6) % Chloride (98-107) mmol/L BUN (9-20) mg/dL POC Glucose 338 H 271 H 271 H (70-110) mg/dL Random Glucose (70-110) mg/dL Hemoglobin A1c (4.80-6.00) % AST (17-59) U/L Total Protein (6.3-8.2) gm/dL Albumin (3.5-5.0) gm/dL 11/15/16 11/16/16 11/16/16 Range/Units 23:20 01:20 05:45 WBC (4.2-12.2) K/uL RBC 3.30 L (4.40-5.70) M/uL Hgb 9.5 L (14.0-18.0) gm/dl Hct 28.9 L (42.0-52.0) % RDW 16.1 H (11.5-14.5) % Plt Count 123 L (130-400) K/uL Lymphocytes % (16-45) % Monocytes % (0-9) % Eosinophils % (0-6) % Chloride (98-107) mmol/L BUN (9-20) mg/dL POC Glucose 179 H 172 H (70-110) mg/dL Random Glucose (70-110) mg/dL Hemoglobin A1c (4.80-6.00) % AST (17-59) U/L Total Protein (6.3-8.2) gm/dL Albumin (3.5-5.0) gm/dL 11/16/16 11/16/16 11/16/16 Range/Units 05:45 11:11 13:10 WBC (4.2-12.2) K/uL RBC (4.40-5.70) M/uL Hgb (14.0-18.0) gm/dl Hct (42.0-52.0) % RDW (11.5-14.5) % Plt Count (130-400) K/uL Lymphocytes % (16-45) % Monocytes % (0-9) % Eosinophils % (0-6) % Chloride (98-107) mmol/L BUN 35 H (9-20) mg/dL POC Glucose 355 H 335 H (70-110) mg/dL Random Glucose 203 H (70-110) mg/dL Hemoglobin A1c (4.80-6.00) % AST 12 L (17-59) U/L Total Protein 5.5 L (6.3-8.2) gm/dL Albumin 3.1 L (3.5-5.0) gm/dL 11/16/16 11/16/16 11/17/16 Range/Units 16:51 20:45 07:00 WBC (4.2-12.2) K/uL RBC (4.40-5.70) M/uL Hgb (14.0-18.0) gm/dl Hct (42.0-52.0) % RDW (11.5-14.5) % Plt Count (130-400) K/uL Lymphocytes % (16-45) % Monocytes % (0-9) % Eosinophils % (0-6) % Chloride (98-107) mmol/L BUN (9-20) mg/dL POC Glucose 132 H 200 H (70-110) mg/dL Random Glucose (70-110) mg/dL Hemoglobin A1c 9.27 H (4.80-6.00) % AST (17-59) U/L Total Protein (6.3-8.2) gm/dL Albumin (3.5-5.0) gm/dL 11/17/16 11/17/16 11/17/16 Range/Units 07:30 11:18 17:24 WBC (4.2-12.2) K/uL RBC (4.40-5.70) M/uL Hgb (14.0-18.0) gm/dl Hct (42.0-52.0) % RDW (11.5-14.5) % Plt Count (130-400) K/uL Lymphocytes % (16-45) % Monocytes % (0-9) % Eosinophils % (0-6) % Chloride (98-107) mmol/L BUN (9-20) mg/dL POC Glucose 199 H 220 H 208 H (70-110) mg/dL Random Glucose (70-110) mg/dL Hemoglobin A1c (4.80-6.00) % AST (17-59) U/L Total Protein (6.3-8.2) gm/dL Albumin (3.5-5.0) gm/dL 11/17/16 11/18/16 11/18/16 Range/Units 21:47 07:40 07:40 WBC 4.1 L (4.2-12.2) K/uL RBC 3.37 L (4.40-5.70) M/uL Hgb 9.8 L (14.0-18.0) gm/dl Hct 30.3 L (42.0-52.0) % RDW 16.4 H (11.5-14.5) % Plt Count 114 L (130-400) K/uL Lymphocytes % 14.0 L (16-45) % Monocytes % 10.0 H (0-9) % Eosinophils % 10.0 H (0-6) % Chloride 111 H (98-107) mmol/L BUN (9-20) mg/dL POC Glucose 177 H (70-110) mg/dL Random Glucose 52 L (70-110) mg/dL Hemoglobin A1c (4.80-6.00) % AST (17-59) U/L Total Protein 5.4 L (6.3-8.2) gm/dL Albumin 3.1 L (3.5-5.0) gm/dL 11/18/16 11/18/16 11/18/16 Range/Units 07:45 08:00 09:15 WBC (4.2-12.2) K/uL RBC (4.40-5.70) M/uL Hgb (14.0-18.0) gm/dl Hct (42.0-52.0) % RDW (11.5-14.5) % Plt Count (130-400) K/uL Lymphocytes % (16-45) % Monocytes % (0-9) % Eosinophils % (0-6) % Chloride (98-107) mmol/L BUN (9-20) mg/dL POC Glucose 45 L* 58 L 155 H (70-110) mg/dL Random Glucose (70-110) mg/dL Hemoglobin A1c (4.80-6.00) % AST (17-59) U/L Total Protein (6.3-8.2) gm/dL Albumin (3.5-5.0) gm/dL 11/18/16 Range/Units 11:45 WBC (4.2-12.2) K/uL RBC (4.40-5.70) M/uL Hgb (14.0-18.0) gm/dl Hct (42.0-52.0) % RDW (11.5-14.5) % Plt Count (130-400) K/uL Lymphocytes % (16-45) % Monocytes % (0-9) % Eosinophils % (0-6) % Chloride (98-107) mmol/L BUN (9-20) mg/dL POC Glucose 255 H (70-110) mg/dL Random Glucose (70-110) mg/dL Hemoglobin A1c (4.80-6.00) % AST (17-59) U/L Total Protein (6.3-8.2) gm/dL Albumin (3.5-5.0) gm/dL Condition at Discharge: (3) Guarded Discharge Medications - Discharge Medications Home Medications: Ambulatory Orders Ferrous Sulfate 325 mg PO DAILY 03/24/16 [Last Taken 03/24/16] Losartan Potassium [Cozaar] 25 mg PO DAILY 03/24/16 [Last Taken 03/24/16] Magnesium Oxide [Mag Ox] 400 mg PO BID 03/24/16 [Last Taken 03/24/16] Metformin HCl 1,000 mg PO BID 03/24/16 [Last Taken 03/24/16] Tamsulosin HCl 0.4 mg PO DAILY 03/25/16 [Last Taken Unknown] Timolol Maleate [Timoptic] 1 drop EACH EYE BID 03/25/16 [Last Taken Unknown] Aspirin/Calcium Carbonate/Mag [Aspirin Buffered 325 mg Tab] 325 mg PO DAILY [Last Taken Unknown] Furosemide [Lasix] 20 mg PO DAILY 09/08/16 [Last Taken Unknown] Omeprazole 20 mg PO DAILYAC 09/08/16 [Last Taken Unknown] Propylene Glycol/Peg 400/Pf [Systane 0.3-0.4% Eye Drops] 1 each OP ASDIR [Last Taken Unknown] Lenalidomide [Revlimid] 10 mg PO 1900 11/16/16 [Last Taken Unknown] Acetaminophen [Tylenol 500Mg Tab] 500 mg PO Q6H PRN #0 tablet 11/18/16 [Last Taken Unknown] Enoxaparin Sodium [Lovenox] 40 mg SQ DAILY syr 11/18/16 [Last Taken Unknown] Insulin Aspart [Novolog Flexpen] 1 unit SQ QIDINS ml 11/18/16 [Last Taken Unknown] Insulin Detemir [Levemir Flextouch] 15 unit SQ QHS syringe 11/18/16 [Last Taken Unknown] Discharge Plan - Discharge Instructions Activity at Discharge: Increase Activity as Tolerated Diet at Discharge: Diabetic Diet, Low Fat, Low Cholesterol
--- NOTE | 2016-11-19 12:06 | Operative Note ---
DATE OF SURGERY: 11/15/2016 PREOPERATIVE DIAGNOSIS: Hydronephrosis and right renal calculus. POSTOPERATIVE DIAGNOSIS: Hydronephrosis and right renal calculus. OPERATION: Cystoscopy, bilateral retrograde pyelograms, insertion of right ureteral stent. Anesthesia: Sedation. Indication: The patient is a 76-year-old male seen for the above diagnoses in the clinic. He has currently in the interim been admitted to [facility] for other medical issues. He also has some acute on chronic kidney injury with a creatinine of 1.5 most recently. He presents today for further investigation and management. The stone is quite large, roughly 18 mm, and we anticipated placing a stent while given the large size of the stone and concern for obstruction with stone particles following lithotripsy. PROCEDURE: Preop informed consent was obtained. Antibiotics were given. Sedation was administered. The patient was brought to the operating room at [facility], placed in the lithotomy position with genitalia prepped and draped sterilely. Cystoscopy was performed. The urethra appears unremarkable. The prostate appears bilobar and mildly to moderately visually obstructed. The bladder was entered and inspected carefully. Both ureteral orifices had normal appearance and positioning, and both ureters were effluxing clear urine actively. The bladder showed no evidence of any other abnormality including stone, tumor, or mucosal irregularity. Using mobile C-arm fluoroscopy and recognizing the limitations in visualizing fine detail, bilateral retrograde pyelograms were performed in the standard fashion, and both ureters appeared unremarkable with no evidence of filling defect, stricture, or dilatation. Drainage was quite prompt bilaterally. There is a roughly 15-20 mm density in the right upper pole on the initial images. After injection of contrast, this was confirmed to be in the upper pole of the right kidney and this is the stone that we had seen previously. It is not causing any obstruction at this time given rapid drainage of contrast through both ureters. Nevertheless, guidewire was advanced into the right kidney. A 24 cm by 6 [place] double J stent was advanced with difficulty, left in correct position, confirmed under fluoroscopy and direct visualization. The bladder was emptied and the scope was removed. The procedure was terminated. The patient was transferred to recovery in stable condition. PLAN: The patient will be scheduled for elective right-sided lithotripsy as soon as he has recovered from this current admission and when he is medically stable and cleared. CC: Dr. Bhavna SHI
== END 2016-11-18 17:45 | disposition short-term general hospital (02) | DRG 638 ==
LOC: ER 14:59 → MEDSURG 19:35
PROVIDERS: ADMIT Family Medicine; ATTEND Family Medicine
PROC: 0T768DZ Dilation of Right Ureter with Intraluminal Device, Via Natural or Artificial Opening Endoscopic (ICD-10-PCS; principal; 2016-11-15)
DX: E11.65 Type 2 diabetes mellitus with hyperglycemia (principal); C90.00 Multiple myeloma not having achieved remission; N13.2 Hydronephrosis with renal and ureteral calculous obstruction; E11.22 Type 2 diabetes mellitus with diabetic chronic kidney disease; N18.3 Chronic kidney disease, stage 3 (moderate); Z79.4 Long term (current) use of insulin; N28.9 Disorder of kidney and ureter, unspecified; Z86.73 Personal history of transient ischemic attack (TIA), and cerebral infarction without residual deficits; Z78.9 Other specified health status; I49.8 Other specified cardiac arrhythmias
CPT/HCPCS: 36416; 71020; 80048; 80053; 81003; 82009; 82550; 82553; 82800; 82947; 82948; 83036; 83605; 84484; 85027; 93005; 93010; 93306; 99223; 99233; 99239; 99285; J7040

== ENCOUNTER 2017-01-23 15:03 | Emergency (ER) | payer MEDICARE ==
--- NOTE | 2017-01-23 16:08 | Emergency Department Record ---
History of Present Illness - General Chief complaint: Hypogylcemia Stated complaint: LOW BLOOD SUGAR Time Seen by Provider: 01/23/17 16:03 Source: Patient, Family Mode of Arrival: Ambulatory Limitations: No limitations - History of Present Illness Initial comments: 76 yo male presents with a concern about his glucose. He is a diabetic. He and his think he took an extra dose of insulin. His blood sugars were 70- 80 at home. No altered mental status. He ate and drank juice. He is asymptomatic. The dosing may have occurred around none. Onset/Timin -: Days(s) Consistency: Intermittent Improves with: None Worsens with: None Associated Symptoms: Denies other symptoms - [place] Coma Scale Eye Response: (4) Open spontaneously Motor Response: (6) Obeys commands Verbal Response: (5) Oriented [place] Total: 15 - Related Data Home Medications Medication Instructions Recorded Confirmed Last Taken Ferrous Sulfate 325 mg PO DAILY 03/24/16 01/23/17 03/24/16 Losartan Potassium [Cozaar] 25 mg PO DAILY 03/24/16 01/23/17 03/24/16 Magnesium Oxide [Mag Ox] 400 mg PO BID 03/24/16 01/23/17 03/24/16 Metformin HCl 1,000 mg PO BID 03/24/16 01/23/17 03/24/16 Tamsulosin HCl 0.4 mg PO DAILY 03/25/16 01/23/17 Unknown Timolol Maleate [Timoptic] 1 drop EACH EYE BID 03/25/16 01/23/17 Unknown Aspirin/Calcium Carbonate/Mag 325 mg PO DAILY 09/08/16 01/23/17 Unknown [Aspirin Buffered 325 mg Tab] Furosemide [Lasix] 20 mg PO DAILY 09/08/16 01/23/17 Unknown Omeprazole 20 mg PO DAILYAC 09/08/16 01/23/17 Unknown Propylene Glycol/Peg 400/Pf 1 each OP ASDIR 09/08/16 01/23/17 Unknown [Systane 0.3-0.4% Eye Drops] Lenalidomide [Revlimid] 10 mg PO 1900 11/16/16 01/23/17 Unknown Previous Rx's Medication Instructions Recorded Acetaminophen [Tylenol 500Mg Tab] 500 mg PO Q6H PRN #0 tablet 11/18/16 Enoxaparin Sodium [Lovenox] 40 mg SQ DAILY syr 11/18/16 Insulin Aspart [Novolog Flexpen] 1 unit SQ QIDINS ml 11/18/16 Insulin Detemir [Levemir Flextouch] 15 unit SQ QHS syringe 11/18/16 Allergies Allergy/AdvReac Type Severity Reaction Status Date / Time No Known Drug Allergies Allergy Verified 09/08/16 18:33 Travel Screening - Travel/Exposure Within Last 30 Days Have you traveled within the last 30 days?: No Review of Systems Constitutional: Denies: Chills, Fever, Weakness Eyes: Denies: Eye discharge ENT: Denies: Congestion, Throat pain Respiratory: Denies: Cough Cardiovascular: Denies: Chest pain, Palpitations, Syncope Endocrine: Denies: Fatigue Gastrointestinal: Denies: Abdominal pain, Diarrhea, Nausea, Vomiting, Other Genitourinary: Denies: Dysuria, Hematuria, Incontinence, Urgency Musculoskeletal: Denies: Arthralgia, Back pain, Myalgia, Neck pain Skin: Denies: Bruising, Change in color, Rash Neurological: Denies: Headache, Numbness, Vertigo, Weakness Psychiatric: Denies: Anxiety Hematological/Lymphatic: Denies: Blood Clots, Easy bleeding, Easy bruising, Swollen glands Past Medical History - SOCIAL HISTORY Smoking Status: Former smoker - RESPIRATORY Hx Respiratory Disorders: Yes Hx Bronchitis: Yes Hx Pneumonia: Yes - CARDIOVASCULAR Hx Cardio Disorders: Yes Hx Hypertension: Yes Hx Vascular Disease: Yes Comment:: aortic valve replacement 2011 - NEURO Hx Neuro Disorders: Yes Hx CVA: Yes (2011) - GI Hx GI Disorders: Yes Hx Reflux: Yes - Hx Genitourinary Disorders: Yes Hx Kidney Stones: Yes Hx Renal Disease: Yes (stage 3 kidney failure) Comment:: scheduled for surgery 11/17/16 renal stent - ENDOCRINE Hx Endocrine Disorders: Yes Hx Diabetes: Yes Hx Thyroid Disease: No Comment:: blood sugars a little high due to steroids around 200 - MUSCULOSKELETAL Hx Musculoskeletal Disorders: Yes Hx Arthritis: Yes - PSYCH Hx Psych Problems: No - HEMATOLOGY/ONCOLOGY Hx Hematology/Oncology Disorders: Yes Hx Cancer: Yes (multiple myeloma dx's -2015) Hx Chemotherapy: Yes Hx Radiation Therapy: No Comment:: doing chemo tx in remission. Family Medical History Any Significant Family History?: Yes Hx Cancer: Brother/Sister Hx Heart Disease: Father, Mother Physical Exam - General General Appearance: Alert, Oriented x3, Cooperative, No acute distress - Head Head exam: Atraumatic, Normal inspection - Eye Eye exam: Normal appearance - ENT ENT exam: Normal exam Ear exam: Normal external inspection Nasal Exam: Normal inspection - Neck Neck exam: Normal inspection, Full ROM. negative: Tenderness - Respiratory Respiratory exam: Normal lung sounds bilaterally. negative: Respiratory distress - Cardiovascular Cardiovascular Exam: Regular rate, Normal rhythm, Normal heart sounds - Rectal Rectal exam: Deferred - exam: Deferred - Extremities Extremities exam: Normal inspection, Full ROM, Normal capillary refill. negative: Tenderness - Back Back exam: Reports: Normal inspection, Full ROM. Denies: Muscle spasm, Rash noted, Tenderness - Neurological Neurological exam: Alert, Normal gait, Oriented X3 - Psychiatric Psychiatric exam: Normal affect, Normal mood - Skin Skin exam: Dry, Intact, Normal color, Warm Course Vital Signs 01/23/17 15:18 Temperature 98.0 F Pulse Rate 66 Respiratory 18 Rate Blood Pressure 114/62 Pulse Ox 97 - Reevaluation(s) Reevaluation #1: Accu check is 161 He remains asymptomatic Awaiting chem panel. 01/23/17 16:47 Reevaluation #2: The labs were reviewed The CR is 1.6 In 2017 the CR has ranged from 1-2.0 the glucose is 160 The results were reviewed with the patient and We discussed holding the insulin tonight He is to hydrate and recheck the renal function this week with his family doctor 01/23/17 17:50 Medical Decision Making - Lab Data Result diagrams: 01/23/17 17:05 Lab Results 01/23/17 Range/Units 15:21 POC Glucose 96 (70-110) mg/dL Disposition Disposition: Discharge Clinical Impression: Hypoglycemia, Renal insufficiency Disposition: Home, Self-Care Condition: (1) Good Instructions: Hypoglycemia in a Person with Diabetes (ED), Chronic Kidney Disease (ED) Additional Instructions: Hold your insulin tonight Stay well hydrated the next 2-3 days Check your blood sugar at least 4 times daily and before bedtime You will need to see your doctor this week to recheck your kidney function tests Forms: Patient Portal Access Time of Disposition: 17:53
[2017-01-23 17:21] LABS: ANION GAP 12.2 (7-16); CARBON DIOXIDE 25.8 mmol/L (22-30); CREATININE 1.6 mg/dL (0.66-1.25)
== END 2017-01-23 18:12 | disposition home or self-care (01) ==
LOC: ER 15:03
DX: E11.649 Type 2 diabetes mellitus with hypoglycemia without coma (principal); N28.9 Disorder of kidney and ureter, unspecified; Z79.4 Long term (current) use of insulin
CPT/HCPCS: 36416; 80048; 82948; 99283

== ENCOUNTER 2018-12-05 18:10 | Inpatient (IN) | payer MEDICARE ==
[2018-12-05] MEDS ORDERED: ACETAMINOPHEN 500 MG TABLET PO ONE (18:14)
[2018-12-05] MEDS ORDERED: 0.9 % SODIUM CHLORIDE 1000ML 1,000 ML IV SCH (18:15)
--- NOTE | 2018-12-05 18:19 | Emergency Department Record ---
History of Present Illness - General Chief Complaint: Fall Injury Stated Complaint: FALL Time Seen by Provider: 12/05/18 18:13 Source: EMS Mode of Arrival: EMS Limitations: Altered mental status - History of Present Illness Initial Comments: 78 yo male presents to ED for evaluation of fever at home resulting in generalized weakness symptoms which lead to a fall just prior to arrival. Patient's called EMS for evaluation, however she has not arrived to provide any history. Patient reports that he "fell", is unsure about mechanism or any circumstances surrounding his fall. Patient does have a history of previous CVA per EMS. MD Complaint: Fall Onset/Timin -: Minutes(s) Fall From: Standing When Fall Occurred: Just prior to arrival Fall Witnessed: Yes, by family Place Fall Occurred: Home Loss of Consciousness: Unsure Prolonged Down Time?: No - [place] Coma Scale Eye Response: (4) Open spontaneously Motor Response: (6) Obeys commands Verbal Response: (4) Confused conversation [place] Total: 14 - Related Data Home Medications Medication Instructions Recorded Confirmed Last Taken Baclofen 10 mg PO TID 12/05/18 12/05/18 12/05/18 Guaifenesin [Mucinex] 600 mg PO BID 12/05/18 12/05/18 12/05/18 Insulin Glargine,Hum.rec.anlog 10 units SQ ASDIR 12/05/18 12/05/18 12/05/18 [Lantus Solostar] Insulin Lispro [Humalog] 10 units SQ ASDIR 12/05/18 12/05/18 12/05/18 Latanoprost 0.005% Opth Marya 1 drop EACH EYE QHS 12/05/18 12/05/18 12/05/18 [Xalatan] Sulfamethoxazole/Trimethoprim 1 tab PO BID 12/05/18 12/05/18 12/05/18 [Bactrim Ds Tablet] Trazodone HCl [Desyrel] 50 mg PO QHS 12/05/18 12/05/18 12/05/18 Allergies Allergy/AdvReac Type Severity Reaction Status Date / Time No Known Drug Allergies Allergy Verified 12/05/18 18:34 Review of Systems ROS unobtainable: Due to mental status Past Medical History - SOCIAL HISTORY Smoking Status: Former smoker - RESPIRATORY Hx Respiratory Disorders: Yes Hx Bronchitis: Yes Hx Pneumonia: Yes - CARDIOVASCULAR Hx Cardio Disorders: Yes Hx Hypertension: Yes Hx Vascular Disease: Yes Comment:: aortic valve replacement 2012 - NEURO Hx Neuro Disorders: Yes Hx CVA: Yes (2011) - GI Hx GI Disorders: Yes Hx Reflux: Yes - Hx Genitourinary Disorders: Yes Hx Kidney Stones: Yes Hx Renal Disease: Yes (stage 3 kidney failure) Comment:: scheduled for surgery 11/17/16 renal stent - ENDOCRINE Hx Endocrine Disorders: Yes Hx Diabetes: Yes Hx Thyroid Disease: No Comment:: blood sugars a little high due to steroids around 200 - MUSCULOSKELETAL Hx Musculoskeletal Disorders: Yes Hx Arthritis: Yes - PSYCH Hx Psych Problems: No - HEMATOLOGY/ONCOLOGY Hx Hematology/Oncology Disorders: Yes Hx Cancer: Yes (multiple myeloma dx's ) Hx Chemotherapy: Yes Hx Radiation Therapy: No Comment:: doing chemo tx in remission. Family Medical History Hx Cancer: Brother/Sister Hx Heart Disease: Father, Mother Physical Exam - General General Appearance: Alert, Cooperative, Moderate distress Limitations: Altered mental status - Head Head exam detail: Abrasion. negative: Contusion, Gloria's sign, General tenderness, Hematoma, Laceration - Eye Eye exam: Normal appearance, Other (Small area of ecchymosis to the left edgard-orbital region on examination.). negative: Conjunctival injection, Periorbital swelling, Periorbital tenderness - ENT Ear exam: negative: Auricular hematoma, Auricular trauma Nasal Exam: negative: Active bleeding, Discharge, Dried blood, Foreign body Mouth exam: negative: Drooling, Laceration, Muffled voice, Tongue elevation - Neck Neck exam: Normal inspection. negative: Meningismus, Tenderness - Respiratory Respiratory exam: Normal lung sounds bilaterally. negative: Respiratory distress, Rhonchi, Stridor, Wheezes - Cardiovascular Cardiovascular Exam: Irregular rhythm - GI/Abdominal GI/Abdominal exam: Soft. negative: Distended, Rebound, Rigid, Tenderness - Rectal Rectal exam: Deferred - exam: Deferred - Extremities Extremities exam: Pedal edema (3+ bilateral pedal edema) - Back Back exam: Denies: CVA tenderness (R), CVA tenderness (L) - Neurological Neurological exam: Other (Awake, answers some questions on examination.) - Psychiatric Psychiatric exam: Normal affect, Normal mood - Skin Skin exam: Normal color. negative: Abrasion Type of lesion: negative: abrasion Course - Reevaluation(s) Reevaluation #1: 12/05/18 18:35 Patient was seen and examined, c-collar is in the patient's mouth. Cervical collar was removed, patient denies pain with palpation of the mid-ce rvical spine. Patient taken for STAT imaging of the head, neck, and chest. Reevaluation #2: 12/05/18 19:02 Patient is back from CT imaging, images were reviewed and appear unremarkable for an acute process. EKG: NSR 76 IVCD, nonspecific ST-T wave changes No significant change from 11/16/16 Reevaluation #3: 12/05/18 19:17 Laboratory studies were reviewed: WBC 4.7 Hgb 10.6 (at baseline compared with previous Hgb levels) BUN 44/Creatinine 1.8 (near baseline) LA 2.1 CO2 19 AG 17 Gama catheter placed by nursing staff, UA sent to lab. Rocephin 1 gram ordered to infuse for likely CAP pending UA result. Reevaluation #4: 12/05/18 19:28 UA was reviewed: 7-10 RBCs 0-2 WBCs 0-2 Epithelial cells No bacteria. Reevaluation #5: 12/05/18 20:07 CXR: Chronic changes, nothing acute CT head: No acute fracture or hemorrhage Remote ischemic infarcts bilaterally CT Cervical Spine: DJD, no acute traumatic injury Patient and his were updated on all results, cliniaclly patient's examination, vitals, and results appear most c/w CAP. Rocephin and Zithromax ordered to infuse. Case was discussed with Gala Arteaga [employer] TECHNICIAN, will accept admission at this time. Medical Decision Making - Lab Data Result diagrams: 12/05/18 18:00 12/05/18 18:00 Disposition Disposition: Admit Clinical Impression: Hypoxia CAP (community acquired pneumonia) Qualifiers: Laterality: unspecified laterality Qualified Code(s): J18.9 - Pneumonia, unspecified organism Sepsis Qualifiers: Sepsis type: sepsis due to unspecified organism Qualified Code(s): A41.9 - Sepsis, unspecified organism Disposition: Still a Patient at [facility] Decision to Admit: Admit from ER Decision to Admit Date: 12/05/18 Decision to Admit Time: 19:31 Condition: (2) Stable Forms: Patient Portal Access Time of Disposition: 19:31 Quality - Quality Measures Quality Measures: N/A - Blood Pressure Screening Does Patient Have Any of the Following: No Blood Pressure Classification: Hypertensive Reading Systolic Measurement: 148 Diastolic Measurement: 67 Screening for High Blood Pressure: < First Hypertensive BP, F/U Documented > [G8950] First Hypertensive Follow-up Interventions: Referral to alternative/primary care provider.
[2018-12-05 18:47] LABS: BASO % 0.2 % (0-6); EOS % 0.4 % (0-6); HEMATOCRIT 34.5 % (42.0-52.0); HEMOGLOBIN 10.6 gm/dl (14.0-18.0); LYMPH % 29.9 % (16-45); MEAN CELL VOLUME 98.3 fl (81-97); MEAN CORPUSCULAR HGB CONC 30.7 g/dl (32-36); MEAN PLATELET VOLUME 12.2 fl (7.4-10.4); MONO % 13.5 % (0-9); PLATELET COUNT 86 K/uL (130-400); RED BLOOD COUNT 3.51 M/uL (4.40-5.70); RED CELL DISTRIBUTION WIDTH 16.7 % (11.5-14.5); WHITE BLOOD COUNT W/O DIFF 4.7 K/uL (4.2-12.2)
[2018-12-05 18:48] LABS: MEAN CORPUSCULAR HEMOGLOBIN 30.1 pg (27-33)
[2018-12-05 18:59] LABS: INR 1.1; PROTHROMBIN TIME (PATIENT) 10.8 SECONDS (9.5-12.1)
[2018-12-05] MEDS ORDERED: LIDOCAINE UROJECT 10 ML APPL MM ONE (19:09)
[2018-12-05 19:12] LABS: BILIRUBIN,TOTAL 0.4 mg/dL (0.2-1.0); CREATININE 1.8 mg/dL (0.7-1.2)
[2018-12-05 19:13] LABS: TOTAL PROTEIN 7.2 g/dL (6.6-8.7)
[2018-12-05 19:18] LABS: ALB/GLOB RATIO 1.5 (1.1-1.8); ALBUMIN 4.3 g/dL (4.0-5.0)
[2018-12-05] MEDS ORDERED: CEFTRIAXONE 1GM/50ML BAG 1 GM/50 ML BAG IVPB ONE (19:20)
[2018-12-05 19:27] LABS: URINE APPEARANCE CLEAR; URINE BACTERIA NONE SEEN; URINE BILIRUBIN NEGATIVE (NEGATIVE); URINE BLOOD SMALL (NEGATIVE); URINE COLOR YELLOW; URINE EPITHELIAL CELLS 0 - 2 (FEW); URINE KETONE NEGATIVE (NEGATIVE); URINE LEUKOCYTE ESTERASE NEGATIVE (NEGATIVE); URINE NITRITE NEGATIVE (NEGATIVE); URINE UROBILINOGEN 0.2 E.U./dL (0.20 - 1.00); URINE WBC 0 - 2 (0-2/hpf)
[2018-12-05] MEDS ORDERED: AZITHROMYCIN 500 MG in 0.9 % SODIUM CHLORIDE 250ML 250 ML IVPB ONE (19:31)
[2018-12-05] MEDS ORDERED: NOVOLOG FLEXPEN (INSULIN ASPART) 100 UNITS/ML SQ SCH (21:18)
[2018-12-05] MEDS ORDERED: LEVEMIR FLEXTOUCH 100 UNIT/ML INSULIN PEN SQ SCH (21:18)
[2018-12-05] MEDS ORDERED: TIMOLOL MALEATE 0.5% 5ML BTL OPTH SCH (22:00)
[2018-12-05] MEDS: 0.9 % SODIUM CHLORIDE 1000ML 1,000 ML IV PRN (22:49)
[2018-12-05] MEDS: TRAZODONE 50 MG TABLET PO SCH (23:09)
[2018-12-05] MEDS: MAGNESIUM OXIDE 400 MG TABLET PO SCH (23:10)
[2018-12-05] MEDS: BACLOFEN 10 MG TABLET PO SCH (23:10)
[2018-12-05] MEDS: GUAIFENESIN 600 MG TABCR PO SCH (23:11)
[2018-12-05] MEDS: METFORMIN 500 MG TABLET PO SCH (23:14)
[2018-12-06] MEDS: LATANOPROST 0.005% OPTH SOLUTION 2.5ML BOTTLE OPTH SCH ×2 (00:39→22:19)
[2018-12-06] MEDS: 0.9 % SODIUM CHLORIDE 1000ML 1,000 ML IV PRN ×2 (06:26→15:09)
[2018-12-06] MEDS: PANTOPRAZOLE SODIUM 40 MG TABLET PO SCH (06:41)
[2018-12-06 07:06] LABS: HEMATOCRIT 30.6 % (42.0-52.0); HEMOGLOBIN 9.2 gm/dl (14.0-18.0); MEAN CELL VOLUME 99.4 fl (81-97); MEAN CORPUSCULAR HGB CONC 30.1 g/dl (32-36); MEAN PLATELET VOLUME 11.7 fl (7.4-10.4); PLATELET COUNT 70 K/uL (130-400); RED BLOOD COUNT 3.08 M/uL (4.40-5.70); RED CELL DISTRIBUTION WIDTH 16.8 % (11.5-14.5); WHITE BLOOD COUNT W/O DIFF 2.4 K/uL (4.2-12.2)
--- NOTE | 2018-12-06 07:14 | CT SCAN REPORT ---
EXAM: CT OF THE HEAD WITHOUT CONTRAST HISTORY: [] SEPSIS, HYPOXIA TECHNIQUE: Noncontrast CT images of the head were obtained. Comparison: 03/24/16. FINDINGS: As previously identified, there are large remote zones of transcortical infarction in the right frontal lobe and left posterior parietal region. No acute transcortical zones of infarction are identified. There are no extraaxial fluid collections. There is no intracranial hemorrhage. There is moderate generalized atrophy with ventriculomegaly. There is no mass effect or midline shift. There is no evidence of extraaxial fluid collections or fractures. There is mild ethmoid sinusitis and left maxillary sinusitis with a maxillary air fluid level. IMPRESSION: FAIRLY EXTENSIVE REMOTE POST ISCHEMIC CHANGES. MAXILLARY AND ETHMOID SINUSITIS. NO ACUTE INTRACRANIAL PROCESS. JOB NUMBER: [id number] [facility]
--- NOTE | 2018-12-06 07:17 | RADIOLOGY REPORT ---
EXAM: CHEST HISTORY: FALL. TECHNIQUE: Two views of the chest were obtained. FINDINGS: There is evidence of prior median sternotomy. There is mild cardiomegaly. The pulmonary vessels are not distended. No infiltrate or effusion is seen. IMPRESSION: SENESCENT CHEST. NO ACUTE PROCESS. JOB NUMBER: [id number] [facility]
[2018-12-06 07:20] LABS: MEAN CORPUSCULAR HEMOGLOBIN 29.8 pg (27-33)
--- NOTE | 2018-12-06 07:20 | CT SCAN REPORT ---
EXAM: CT OF THE CERVICAL SPINE WITHOUT CONTRAST HISTORY: GROUND LEVEL FALL. TECHNIQUE: Axial noncontrast CT images were obtained from the skull base to the thoracic inlet. FINDINGS: There are moderate degenerative changes at essentially every level of the cervical spine with anterior osteophytes and mild disk space irregularity. There is no evidence of fracture or acute malalignment. 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 JOB NUMBER: [id number] [facility]
[2018-12-06 07:22] LABS: CREATININE 1.5 mg/dL (0.7-1.2)
[2018-12-06] MEDS: TAMSULOSIN HCL 0.4 MG CAP.ER.24H PO SCH (10:20)
[2018-12-06] MEDS: METFORMIN 500 MG TABLET PO SCH ×2 (10:24→18:38)
[2018-12-06] MEDS: MAGNESIUM OXIDE 400 MG TABLET PO SCH ×2 (10:25→22:10)
[2018-12-06] MEDS: BACLOFEN 10 MG TABLET PO SCH (10:25)
[2018-12-06] MEDS: FUROSEMIDE 20 MG TABLET PO SCH (10:25)
[2018-12-06] MEDS: GUAIFENESIN 600 MG TABCR PO SCH ×2 (10:25→22:11)
[2018-12-06] MEDS: TIMOLOL MALEATE 0.5% 5ML BTL OPTH SCH ×2 (10:26→22:16)
[2018-12-06] MEDS ORDERED: BACLOFEN 10 MG TABLET PO PRN (10:45)
--- NOTE | 2018-12-06 12:42 | History & Physical ---
History of Present Illness - Date of Service Date of Service for History & Physical: 12/06/18 - History of Present Illness Admitting Diagnosis: Community Acquired Pneumonia. Sepsis. CRF History of Present Illness: Marcello Win is a 78 y.o. M who was brought to the [facility] ED per EMS for evaluation d/t a fever, fall and generalized weakness. Pt is a poor historian and is unable to elaborate on the details of the fall. reported, via telephone discussion, that he has a hx of multiple strokes, an AVR in approximately 2011 (which was done at [facility]), DM II, CKD III and hx of multiple myeloma. PCP: Dr. Osman ED Course Vitals: T 102.5, HR 76, BP 148/67, RR 20, SPO2 88% on RA Head CT: Maxillary and Ethmoid sinusitis CXR: No acute process Cervical CT: DJD, no fracture Labs: WBC 4.7, Hgb 10.6, platelets 86, BUN 44, Creat 1.8, Lactic Acid 2.1, Trops <0.010 U/A: Negative 12/06/18 1000 Vitals: T 98.1, HR 57, BP 129/56, RR 18, SpO2 100% on 2L NC Poor historian. Alert and oriented to self and some of situation. Is able to state who his PCP is, with whom he lives ( [place]) and that he had a fall the previous day. Denies having any SOB, HENRY, abdominal pain, chest pain or constipation. Only complaint is of right knee pain. contacted to discuss history and symptoms. stated that he had an AVR in [address] Ross at [facility] and believes his next appointment is in December or January. Reports that she is having increasing difficulty taking care of him d/t his increasing weakness and more confusion. States that he has been worsening over the last several weeks but has become more weak in the last few days. She reports that he hasn't been moving around as much and has noticed more swelling in his lower le gs in the last few weeks. She states that he always has pain in his knees and lower back. Travel Screening - Travel/Exposure Within Last 30 Days Have you traveled within the last 30 days?: No - Travel/Exposure Within Last Year Have you traveled outside the [place] in the last year?: No - Additonal Travel Details Have you been exposed to anyone with a communicable illness?: No Review of Systems Reviewed: No additional complaints except as noted below Past Medical History - SOCIAL HISTORY Smoking Status: Former smoker Alcohol Use: None Drug Use: None - RESPIRATORY Hx Respiratory Disorders: Yes Hx Bronchitis: Yes Hx Pneumonia: Yes - CARDIOVASCULAR Hx Cardio Disorders: Yes Hx Hypertension: Yes Hx Vascular Disease: Yes Comment:: aortic valve replacement 2011 - NEURO Hx Neuro Disorders: Yes Hx CVA: Yes (2011) - GI Hx GI Disorders: Yes Hx Reflux: Yes - Hx Genitourinary Disorders: Yes Hx Kidney Stones: Yes Hx Renal Disease: Yes (stage 3 kidney failure) Comment:: scheduled for surgery 11/17/16 renal stent - ENDOCRINE Hx Endocrine Disorders: Yes Hx Diabetes: Yes Hx Thyroid Disease: No Comment:: blood sugars a little high due to steroids around 200 - MUSCULOSKELETAL Hx Musculoskeletal Disorders: Yes Hx Arthritis: Yes - PSYCH Hx Psych Problems: No - HEMATOLOGY/ONCOLOGY Hx Hematology/Oncology Disorders: Yes Hx Cancer: Yes (multiple myeloma dx's ) Hx Chemotherapy: Yes Hx Radiation Therapy: No Comment:: doing chemo tx in remission. Family Medical History Any Significant Family History?: No Hx Cancer: Brother/Sister Hx Heart Disease: Father, Mother H&P Meds/Allergies - Allergies Allergies: Allergies Allergy/AdvReac Type Severity Reaction Status Date / Time No Known Drug Allergies Allergy Verified 12/05/18 18:34 - Home Medications Home Medications Medication Instructions Recorded Confirmed Last Taken Baclofen 10 mg PO TID PRN 12/05/18 12/05/18 12/05/18 Guaifenesin [Mucinex] 600 mg PO BID 12/05/18 12/05/18 12/05/18 Insulin Glargine,Hum.rec.anlog 9 units SQ DAILYWM 12/05/18 12/06/18 12/05/18 [Lantus Solostar] Latanoprost 0.005% Opth Marya 1 drop EACH EYE QHS 12/05/18 12/05/18 12/05/18 [Xalatan] Trazodone HCl [Desyrel] 50 mg PO QHS 12/05/18 12/05/18 12/05/18 Insulin Glargine,Hum.rec.anlog 11 units SQ QHS 12/06/18 12/06/18 Unknown [Lantus Solostar] Insulin Lispro [Humalog Kwikpen] 0 unit SQ WMEALS 12/06/18 12/06/18 Unknown Lenalidomide [Revlimid] 10 mg PO DAILY 12/06/18 12/06/18 Unknown - Active Medications Active Medications: Current Medications Acetaminophen (Tylenol 500mg Tab) 1,000 mg PO Q6H PRN PRN Reason: PAIN - MILD(1-4)/FEVER Baclofen (Lioresal) 10 mg PO TID PRN PRN Reason: MUSCLE SPASM Furosemide (Lasix) 20 mg PO DAILY [facility] Last Admin: 12/06/18 10:25 Dose: 20 mg Documented by: Guaifenesin (Mucinex) 600 mg PO BID [facility] Last Admin: 12/06/18 10:25 Dose: 600 mg Documented by: Sodium Chloride () 1,000 mls @ 125 mls/hr IV .Q8H PRN PRN Reason: LARGE VOLUME IV Last Admin: 12/06/18 06:26 Dose: 125 mls/hr Documented by: CEFTRIAXONE 1GM/50ML BAG (Ceftriaxone 1 Gm-D5w Bag) 1 gm in 50 mls @ 100 mls/hr IVPB Q24H [facility] Azithromycin 500 mg/ Sodium (Chloride) 250 mls @ 250 mls/hr IVPB Q24H [facility] Stop: 12/11/18 20:31 Insulin Aspart (Novolog Flexpen) 4 unit SQ 0745,1145 [facility] Insulin Aspart (Novolog Flexpen) 3 unit SQ 1715 [facility] Insulin Aspart (Novolog Flexpen) 1 unit SQ TIDINS [facility]; Protocol Insulin Detemir (Levemir Flextouch) 9 unit SQ DAILYWM [facility] Insulin Detemir (Levemir Flextouch) 11 unit SQ QHS [facility] Latanoprost (Xalatan) 1 drop OPTH QHS [facility] Last Admin: 12/06/18 00:39 Dose: Not Given Documented by: Magnesium Oxide (Mag Ox) 400 mg PO BID [facility] Last Admin: 12/06/18 10:25 Dose: 400 mg Documented by: Metformin HCl (Glucophage Ir) 1,000 mg PO BIDWM [facility] Pantoprazole Sodium (Protonix) 40 mg PO DAILYAC [facility] Last Admin: 12/06/18 06:41 Dose: 40 mg Documented by: Tamsulosin HCl (Flomax) 0.4 mg PO DAILY [facility] Last Admin: 12/06/18 10:20 Dose: 0.4 mg Documented by: Timolol Maleate (Timoptic) 1 drop OPTH BID [facility] Last Admin: 12/06/18 10:26 Dose: 1 drop Documented by: Trazodone HCl (Desyrel) 50 mg PO QHS [facility] Last Admin: 12/05/18 23:09 Dose: 50 mg Documented by: Physical Exam - Vital Signs Vital Signs: Vital Signs - Last 24 Hrs Temp Pulse Pulse Pulse Resp BP BP 12/06/18 12:00 98.8 F 56 L 18 12/06/18 10:26 18 L 88 H 12/06/18 08:00 98.1 F 57 L 18 12/06/18 04:00 99.4 F 64 18 12/05/18 22:14 16 12/05/18 21:36 98.7 F 60 18 12/05/18 21:03 98.6 F 60 24 12/05/18 20:22 100.1 F H 61 20 105/60 12/05/18 19:34 65 136/61 12/05/18 18:14 102.5 F H 76 20 148/67 BP Pulse Ox 12/06/18 12:00 136/65 91 L 12/06/18 10:26 93 L 12/06/18 08:00 129/56 100 12/06/18 04:00 129/65 95 12/05/18 22:14 12/05/18 21:36 122/67 97 12/05/18 21:03 112/58 96 12/05/18 20:22 96 12/05/18 19:34 95 12/05/18 18:14 88 L - General General Appearance: Alert, Cooperative, No acute distress, Moderate distress Limitations: Altered mental status - Head Head exam detail: Abrasion. negative: Contusion, Gloria's sign, General tenderness, Hematoma, Laceration - Eye Eye exam: Normal appearance, Other (Small area of ecchymosis to the left edgard- orbital region on examination.). negative: Conjunctival injection, Periorbital swelling, Periorbital tenderness - ENT Ear exam: negative: Auricular hematoma, Auricular trauma Nasal Exam: negative: Active bleeding, Discharge, Dried blood, Foreign body Mouth exam: negative: Drooling, Laceration, Muffled voice, Tongue elevation - Neck Neck exam: Normal inspection. negative: Meningismus, Tenderness - Respiratory Respiratory exam: Normal lung sounds bilaterally. negative: Respiratory distress, Rhonchi, Stridor, Wheezes - Cardiovascular Cardiovascular Exam: Irregular rhythm - GI/Abdominal GI/Abdominal exam: Soft. negative: Distended, Rebound, Rigid, Tenderness - Rectal Rectal exam: Deferred - exam: Deferred - Extremities Extremities exam: Pedal edema (3+ bilateral pedal edema) - Back Back exam: Denies: CVA tenderness (R), CVA tenderness (L) - Neurological Neurological exam: Other (Awake, answers some questions on examination.) - Psychiatric Psychiatric exam: Normal affect, Normal mood - Skin Skin exam: Normal color. negative: Abrasion Type of lesion: negative: abrasion Results - Labs Result Diagrams: 12/06/18 06:35 12/06/18 06:35 Labs Last 24 Hours: Laboratory Results - last 24 hr 12/05/18 12/05/18 12/05/18 18:00 18:00 18:00 WBC 4.7 RBC 3.51 L Hgb 10.6 L Hct 34.5 L MCV 98.3 H MCH 30.1 MCHC 30.7 L RDW 16.7 H Plt Count 86 L MPV 12.2 H Gran % 56.0 Neutrophils % Band Neutrophils % Lymphocytes % 29.9 Monocytes % 13.5 H Eosinophils % 0.4 Basophils % 0.2 Absolute Neutrophils 2.60 Lymphocytes Monocytes Basophils Metamyelocytes Myelocytes Promyelocytes Nucleated RBCs Differential Comment Hypersegmented Polys Plasma Cells Other Cell Type Toxic Granulation Dohle Bodies Dillan Rods Platelet Estimate RBC Morphology Polychromasia Hypochromasia Poikilocytosis Basophilic Stippling Anisocytosis Microcytosis Macrocytosis Spherocytes Sickle Cells Target Cells Tear Drop Cells Ovalocytes Stomatocytes Helmet Cells Schrader-[place] Bodies [place] Rings Rual Cells Acanthocytes (Spur) Rouleaux Schistocytes Morphology Comment Eosinophil Count PT 10.8 INR 1.1 Sodium 135 L Potassium 4.1 Chloride 99 Carbon Dioxide 19.0 L Anion Gap 17.0 H BUN 44 H Creatinine 1.8 H Estimated GFR 39 POC Glucose Random Glucose 221 H Lactic Acid Cancelled Calcium 9.5 Total Bilirubin 0.40 AST 13 ALT 19 Alkaline Phosphatase 67 Troponin T Total Protein 7.2 Albumin 4.3 Globulin 2.9 Albumin/Globulin Ratio 1.5 Urine Color Urine Appearance Urine pH Ur Specific [place] Urine Protein Urine Glucose (UA) Urine Ketones Urine Blood Urine Nitrite Urine Bilirubin Urine Urobilinogen Ur Leukocyte Esterase Urine RBC Urine WBC Ur Epithelial Cells Urine Bacteria 12/05/18 12/05/18 12/05/18 18:00 19:06 19:27 WBC RBC Hgb Hct MCV MCH MCHC RDW Plt Count MPV Gran % Neutrophils % Band Neutrophils % Lymphocytes % Monocytes % Eosinophils % Basophils % Absolute Neutrophils Lymphocytes Monocytes Basophils Metamyelocytes Myelocytes Promyelocytes Nucleated RBCs Differential Comment Hypersegmented Polys Plasma Cells Other Cell Type Toxic Granulation Dohle Bodies Dillan Rods Platelet Estimate RBC Morphology Polychromasia Hypochromasia Poikilocytosis Basophilic Stippling Anisocytosis Microcytosis Macrocytosis Spherocytes Sickle Cells Target Cells Tear Drop Cells Ovalocytes Stomatocytes Helmet Cells Schrader-[place] Bodies [place] Rings Raul Cells Acanthocytes (Spur) Rouleaux Schistocytes Morphology Comment Eosinophil Count PT INR Sodium Potassium Chloride Carbon Dioxide Anion Gap BUN Creatinine Estimated GFR POC Glucose Random Glucose Lactic Acid 2.1 Calcium Total Bilirubin AST ALT Alkaline Phosphatase Troponin T < 0.010 Total Protein Albumin Globulin Albumin/Globulin Ratio Urine Color Yellow Urine Appearance Clear Urine pH 5.5 Ur Specific [place] 1.025 Urine Protein 30 mg/dl H Urine Glucose (UA) 250 mg/dl H Urine Ketones Negative Urine Blood Small H Urine Nitrite Negative Urine Bilirubin Negative Urine Urobilinogen 0.2 Ur Leukocyte Esterase Negative Urine RBC 7 - 10 Urine WBC 0 - 2 Ur Epithelial Cells 0 - 2 Urine Bacteria None seen 12/05/18 12/06/18 12/06/18 22:30 06:35 06:35 WBC 2.4 L RBC 3.08 L Hgb 9.2 L Hct 30.6 L MCV 99.4 H MCH 29.8 MCHC 30.1 L RDW 16.8 H Plt Count 70 L MPV 11.7 H Gran % Neutrophils % 64.0 Band Neutrophils % Cancelled Lymphocytes % Monocytes % Eosinophils % Not Reportable Basophils % Not Reportable Absolute Neutrophils Not Reportable Lymphocytes 15.0 L Monocytes 21.0 H Basophils Cancelled Metamyelocytes Cancelled Myelocytes Cancelled Promyelocytes Cancelled Nucleated RBCs Cancelled Differential Comment Cancelled Hypersegmented Polys Cancelled Plasma Cells Cancelled Other Cell Type Cancelled Toxic Granulation Cancelled Dohle Bodies Cancelled Dillan Rods Cancelled Platelet Estimate Cancelled RBC Morphology Cancelled Polychromasia Cancelled Hypochromasia Cancelled Poikilocytosis Cancelled Basophilic Stippling Cancelled Anisocytosis Cancelled Microcytosis Cancelled Macrocytosis Cancelled Spherocytes Cancelled Sickle Cells Cancelled Target Cells Cancelled Tear Drop Cells Cancelled Ovalocytes Cancelled Stomatocytes Cancelled Helmet Cells Cancelled Schrader-[place] Bodies Cancelled [place] Rings Cancelled Raul Cells Cancelled Acanthocytes (Spur) Cancelled Rouleaux Cancelled Schistocytes Cancelled Morphology Comment Cancelled Eosinophil Count Cancelled PT INR Sodium 138 Potassium 4.2 Chloride 105 Carbon Dioxide 23.0 Anion Gap 10.0 BUN 34 H Creatinine 1.5 H Estimated GFR 48 POC Glucose 176 H Random Glucose 160 H Lactic Acid Calcium 8.4 L Total Bilirubin AST ALT Alkaline Phosphatase Troponin T Total Protein Albumin Globulin Albumin/Globulin Ratio Urine Color Urine Appearance Urine pH Ur Specific [place] Urine Protein Urine Glucose (UA) Urine Ketones Urine Blood Urine Nitrite Urine Bilirubin Urine Urobilinogen Ur Leukocyte Esterase Urine RBC Urine WBC Ur Epithelial Cells Urine Bacteria 12/06/18 07:30 WBC RBC Hgb Hct MCV MCH MCHC RDW Plt Count MPV Gran % Neutrophils % Band Neutrophils % Lymphocytes % Monocytes % Eosinophils % Basophils % Absolute Neutrophils Lymphocytes Monocytes Basophils Metamyelocytes Myelocytes Promyelocytes Nucleated RBCs Differential Comment Hypersegmented Polys Plasma Cells Other Cell Type Toxic Granulation Dohle Bodies Dillan Rods Platelet Estimate RBC Morphology Polychromasia Hypochromasia Poikilocytosis Basophilic Stippling Anisocytosis Microcytosis Macrocytosis Spherocytes Sickle Cells Target Cells Tear Drop Cells Ovalocytes Stomatocytes Helmet Cells Schrader-[place] Bodies [place] Rings [place] Cells Acanthocytes (Spur) Rouleaux Schistocytes Morphology Comment Eosinophil Count PT INR Sodium Potassium Chloride Carbon Dioxide Anion Gap BUN Creatinine Estimated GFR POC Glucose 144 H Random Glucose Lactic Acid Calcium Total Bilirubin AST ALT Alkaline Phosphatase Troponin T Total Protein Albumin Globulin Albumin/Globulin Ratio Urine Color Urine Appearance Urine pH Ur Specific [place] Urine Protein Urine Glucose (UA) Urine Ketones Urine Blood Urine Nitrite Urine Bilirubin Urine Urobilinogen Ur Leukocyte Esterase Urine RBC Urine WBC Ur Epithelial Cells Urine Bacteria - Imaging and Cardiology CT scan - head Status: Report reviewed Chest x-ray Status: Report reviewed VTE H&P Assessment - Risk for VTE Risk for VTE: Yes Risk Level: High Risk Assessment Date: 12/06/18 Risk Assessment Time: 01:00 VTE Orders Placed or Will Be Placed: Yes Plan - Inpatient Certification Inpatient Certification: Admit to inpatient care: Based on my medical assessment, after consideration of patient's risk factors (age, co-morbidities and patient presenting symptoms and acuity), I expect that this patient will remain in the hospital greater than or equal to two midnights and that the services needed warrant inpatient care because: Patient Risk Factors: [] Estimated length of stay: [] The patient may reasonably be expected to be discharged or transferred to a hospital within 96 hours after admission to [facility]. Services needed: [] Post hospital care (if known): [] I certify that my determination is in accordance with my understanding of Medicare requirements for reasonable and necessary inpatient services. - Detailed Diagnosis and Plan (1) Episode of syncope Current Visit: Yes Status: Acute Base Code: R55 - SYNCOPE AND COLLAPSE Comment: 12/06/18 -BP 129/56, HR 57 -EKG: NSR with PVCs -Cardiology Consult -Echocardiogram -Continuous Telemetry -CT of head and neck: negative for acute process (2) Weakness Current Visit: No Status: Acute Base Code: R53.1 - WEAKNESS Comment: 12/06/18 -Increasing weakness per spouse x several weeks -Fall on 12/05/18, CT of head and neck normal -Mg 1.1, ordered IV Mag sulfate to replace, other electrolytes WNL -U/A negative -CXR negative -PT/OT evals ordered (3) Sinusitis Current Visit: Yes Status: Acute Base Code: J32.9 - CHRONIC SINUSITIS, UNSPECIFIED Comment: 12/06/18 -Head CT: Maxillary and ethmoid sinusitis -Febrile T ranging from 98.1 to 102.5 -Continue IV Azithromycin and Rocephin (4) Altered mental status Current Visit: Yes Status: Acute Qualifiers: Altered mental status type: disorientation Qualified Code(s): R41.0 - Di sorientation, unspecified Base Code: R41.82 - ALTERED MENTAL STATUS, UNSPECIFIED Comment: 12/06/18 - reports increased confusion from baseline -U/A: Negative -CXR: Negative -PT/OT to evaluate (5) Full code status Current Visit: No Status: Acute Base Code: Z78.9 - OTHER SPECIFIED HEALTH STATUS Comment: 12/06/18 -Patient is full code status (6) Hyperglycemia due to type 2 diabetes mellitus Current Visit: No Status: Acute Qualifiers: Diabetes mellitus intermodal dispatcher insulin use: with intermodal dispatcher use Qualified Code(s): E11.65 - Type 2 diabetes mellitus with hyperglycemia; Z79.4 - custodial (current) use of insulin Base Code: E11.65 - TYPE 2 DIABETES MELLITUS WITH HYPERGLYCEMIA Comment: 12/06/18 -Continue home insulin (Novolog and Levemir) regimen as per MAR -AC & HS accuchecks -Continue Metformin -Holding oral and IV steroid tx d/t diabetes (7) DVT prophylaxis Current Visit: No Status: Acute Base Code: [id number] - Comment: 12/06/18 -High risk d/t age, hx of CVA and other comorbidities -Platelets 70 -SCDs ordered for now -Recheck CBC
[2018-12-06] MEDS: NOVOLOG FLEXPEN (INSULIN ASPART) 100 UNITS/ML SQ SCH ×4 (13:06→18:25)
[2018-12-06] MEDS ORDERED: MAGNESIUM SULFATE 16 MEQ in 0.9 % SODIUM CHLORIDE 100ML 100 ML IV ONE (19:19)
[2018-12-06] MEDS ORDERED: AZITHROMYCIN 500 MG in 0.9 % SODIUM CHLORIDE 250ML 250 ML IVPB SCH (20:30)
[2018-12-06] MEDS: CEFTRIAXONE 1GM/50ML BAG 1 GM/50 ML BAG IVPB SCH (21:23)
[2018-12-06] MEDS: TRAZODONE 50 MG TABLET PO SCH (22:10)
[2018-12-06] MEDS ORDERED: 0.9 % SODIUM CHLORIDE 1000ML 1,000 ML IV PRN (22:14)
[2018-12-06] MEDS: LEVEMIR FLEXTOUCH 100 UNIT/ML INSULIN PEN SQ SCH (22:20)
[2018-12-07] MEDS ORDERED: DIPHENHYDRAMINE HCL 50 MG/ML VIAL IVP PRN (02:45)
[2018-12-07 06:46] LABS: ABSOLUTE NEUTROPHIL COUNT 1.53; MEAN CELL VOLUME 99.3 fl (81-97); MEAN CORPUSCULAR HEMOGLOBIN 29.8 pg (27-33); MEAN PLATELET VOLUME 11.6 fl (7.4-10.4); PLATELET COUNT 74 K/uL (130-400); RED BLOOD COUNT 3.02 M/uL (4.40-5.70); RED CELL DISTRIBUTION WIDTH 16.5 % (11.5-14.5); WHITE BLOOD COUNT W/O DIFF 2.9 K/uL (4.2-12.2)
[2018-12-07 07:01] LABS: CREATININE 1.5 mg/dL (0.7-1.2)
[2018-12-07 07:08] LABS: ANISOCYTOSIS 1+; PLATELET ESTIMATE DECREASED (NORMAL)
[2018-12-07] MEDS: PANTOPRAZOLE SODIUM 40 MG TABLET PO SCH (07:22)
[2018-12-07] MEDS: NOVOLOG FLEXPEN (INSULIN ASPART) 100 UNITS/ML SQ SCH ×6 (08:28→16:54)
[2018-12-07] MEDS: METFORMIN 500 MG TABLET PO SCH ×2 (08:30→18:10)
--- NOTE | 2018-12-07 08:30 | Medical Records Consult ---
REASON FOR CONSULTATION: Weakness and arrhythmia seen in telemetry. HISTORY OF PRESENT ILLNESS: The patient is a 78-year-old gentleman who is a poor historian and has a history of aortic valve replacement and follows up with Dr. Ross. He was brought in by EMS yesterday to the emergency department after he sustained a fall. The patient says that he is really weak and he can walk only with a walker or a cane at home. Yesterday, he was standing at the window looking outside but when he turned around, the blind cord wrapped around his feet and he fell down. He denies any loss of consciousness or hitting his head. The patient denies any chest pain. He does have pedal but that is a chronic issue for him. He says that it has not gotten worse. He denies any fever or chills. The patient does have a history of CVA in the remote past. On his telemetry, it was found to have arrhythmia and upon my review, the patient has been in sinus rhythm with frequent PACs. PAST MEDICAL HISTORY: Significant for diabetes mellitus type 2 and aortic stenosis. ALLERGIES: No known drug allergies. HOME MEDICATIONS: 1. Trazodone 50 mg q.h.s. 2. Bactrim 1 tablet p.o. b.i.d. 3. Xalatan eyedrops. 4. Humalog insulin. 5. Insulin glargine. 6. Baclofen 10 mg p.o. b.i.d. 7. Guaifenesin 600 mg p.o. b.i.d. SOCIAL HISTORY: The patient lives at home with his . Denies any history of smoking or alcohol use. REVIEW OF SYSTEMS: The patient denies any fever or chills. Denies any hematochezia or melena. Denies any palpitations. Denies any chest pain. PHYSICAL EXAMINATION: GENERAL: The patient is a 78-year-old gentleman who is sitting up in bed, just finished his lunch and is alert and oriented x3. However, he is a poor historian and does not recall much of his history. VITAL SIGNS: Temperature 98.1 degrees Fahrenheit, heart rate 64 beats per minute, blood pressure 129/65 mmHg. The patient is saturating at 95% on room air. CARDIOVASCULAR: Grade 1/6 systolic ejection murmur. LUNGS: Clear to auscultation bilaterally. ABDOMEN: Soft and nontender. EXTREMITIES: He has +1 bilateral pedal edema. LABORATORY DATA: White count 4.7, hemoglobin 10.6, hematocrit 34.5, platelet count low at 70. Sodium 138, potassium 4.2, chloride 105, BUN 34, creatinine 1.5, blood glucose 160, calcium 8.4, troponin T within normal range at 0.010. His EKG shows sinus rhythm but no acute changes. Telemetry shows sinus rhythm with frequent PACs. ASSESSMENT: 1. Mechanical fall. 2. Weakness. 3. History of aortic valve replacement. 4. History of diabetes mellitus type 2. PLAN: The patient's PACs are isolated beats and he does not have any sustained arrhythmia and I doubt that was playing any etiological in the patient's fall. The patient says that he had the cord wrapped around his feet and that is why he fell rather than feeling weak, and he did not lose consciousness. He has not been seen by his primary punchboard inserter in over a year and his last echocardiogram was in 2017 as well. I would recommend doing an echocardiogram to evaluate his LV function as well as the status of his aortic valve prosthesis. His cardiac valve markers are within normal limits and the patient denies any chest pain. If his echocardiogram shows normal LV function and the aortic valve prosthesis was functioning adequately, no further cardiac workup would be needed during this admission. He should follow up with his punchboard inserter as outpatient. The patient's weakness and difficulty in walking is mostly likely because of deconditioning and probably that is because of his history of CVA. I would also recommend checking his BNP for his pedal edema but that has been a chronic issue and might be because of venous insufficiency. Thank you for involving us in the management of your patient. If you have any questions or concerns, please do not hesitate to call us. JOSE GUADALUPE
[2018-12-07] MEDS: FUROSEMIDE 20 MG TABLET PO SCH (09:14)
[2018-12-07] MEDS: TAMSULOSIN HCL 0.4 MG CAP.ER.24H PO SCH (09:14)
[2018-12-07] MEDS: GUAIFENESIN 600 MG TABCR PO SCH ×2 (09:14→21:30)
[2018-12-07] MEDS: MAGNESIUM OXIDE 400 MG TABLET PO SCH ×2 (09:14→21:30)
[2018-12-07] MEDS: TIMOLOL MALEATE 0.5% 5ML BTL OPTH SCH ×2 (10:00→21:33)
[2018-12-07] MEDS: LEVEMIR FLEXTOUCH 100 UNIT/ML INSULIN PEN SQ SCH ×2 (12:02→21:35)
--- NOTE | 2018-12-07 13:40 | Rehab Evaluation ---
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: short term memory loss and sppech and vision affected Comment: aortic valve replacement 2011 PMH - Neuro Hx Neurological Disorders Yes Hx Cerebrovascular Accident Yes: 2011 Hx Dementia Yes Hx Seizures No PMH - GI Hx Gastrointestinal Disorders Yes Hx Gastroesophageal Reflux Yes PMH - Hx Genitourinary Disorders Yes Hx Kidney Stones Yes Hx Renal Disease Yes: stage 3 kidney failure Comment: scheduled for surgery 11/17/16 renal stent PMH - Endocrine Hx Endocrine Disorders Yes Hx Diabetes Yes Hx Thyroid Disease No Hx of IDDM Yes Comment: blood sugars a little high due to steroids around 200 PMH - Musculoskeletal Hx Musculoskeletal Disorders Yes Hx Arthritis Yes PMH - Psych Hx Psychiatric Problems No PMH - Hematology/Oncology Hx Hematology/Oncology Yes Disorders Hx Cancer Yes: multiple myeloma dx's -2015 Hx Chemotherapy Yes Hx Radiation Therapy No Comment: doing chemo tx in remission. Premorbid Status: Detail (Pt lives with spouse in a 1 story house with 6 steps and one railing at the rear entrance. His laundry is in the basement and he is generally responsible for the laundry as his is unable to climb stairs. He has a tub/shower combination with 2 grab bars and a shower bench and a standard height toilet without grab bars. His reports he has difficulty getting up from the toilet at times. Along with the laundry, he is responsible for taking out the trash and putting the dishes away. His is responsible for meal prep. He has a standard walker and a straight cane but usually ambulates without an assistive device.) Social History: Detail (Supportive ) Precautions: [place], Fall - Time With Patient Total Time Spent With Patient (Min): 35 Treatment Procedures: Detail (OT eval low complexity) Subjective Information - Subjective Information Per Patient, Other (Per spouse who was present during evaluation) Objective Data - Pain Pain Present: No (Pt reports no pain at rest.) - Mental Status Patient Orientation: Person (Pt oriented to self, birthday, location and name of president. He stated his age as 84 or 85, month as October, year as 1979. He was able to follow all verbal commands but needed verbal cueing for safety awareness at times.), Place - Visual Perception Appears within normal limits for therapeutic activities (Pt wears glasses at all times. No visual deficit observed.) - ROM Within normal limits (Adolfo UE AROM grossly WNL) - Strength/Tone Within normal limits (Adolfo UE strength 4/5. Pt was very easily fatigued with activity.) - Coordination Deficit (Pt demonstrated difficulty grasping pant leg during dressing task. Coordination not formally assessed at this time.) - Bed Mobility Needs Assist (Mod assist for supine to sit at EOB.) - Transfers Needs Assist (Sit to stand from EOB and recliner heights with CG assist and verbal cues for correct technique.) - Balance Balance Sitting: Good Balance Standing: Fair - Sensation Intact - Gait Detail (Pt ambulated approx 8 feet with 2 wheeled walker and CG assist. Pt was very fatigued and short of breath with ambulation.) - ADL's/IADL's Detail (Pt reports nursing is assisting him with all self cares. He was able to don hospital pants with mod-max assist. Pt was very fatigued with activity.) Therapy Assessment - Therapy Assessment Detail (Pt presents with signinicantly impaired endurance, decreased Ind with functional mobility and self care tasks.) Problem List - Problem List Occupational Therapy Problem List: Detail (1. Decreased activity tolerance needed for safe and Ind ADLs/IADLs. 2. Decreased Ind with functional mobility needed for self cares. 3. Decreased Ind with total body dressing and bathing.) Goals - Goals Occupational Therapy Goals: 1. Pt will demonstrate improved endurance to allow safe and Ind self cares. 2. Pt will be Ind with bed mobility and transfers in a safe manner to allow Ind with ADLs. 3. Pt will be safe and Ind with total body dressing. Prognosis - Prognosis Good Plan - Plan Occupational Therapy Plan: OT 2-4 times per week to address goals as above. Recommend IP rehab stay to maximize safety and Ind with functional mobility, ADLs and IADLs.
--- NOTE | 2018-12-07 14:07 | Rehab Evaluation ---
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: short term memory loss and sppech and vision affected Comment: aortic valve replacement 2011 PMH - Neuro Hx Neurological Disorders Yes Hx Cerebrovascular Accident Yes: 2011 Hx Dementia Yes Hx Seizures No PMH - GI Hx Gastrointestinal Disorders Yes Hx Gastroesophageal Reflux Yes PMH - Hx Genitourinary Disorders Yes Hx Kidney Stones Yes Hx Renal Disease Yes: stage 3 kidney failure Comment: scheduled for surgery 11/17/16 renal stent PMH - Endocrine Hx Endocrine Disorders Yes Hx Diabetes Yes Hx Thyroid Disease No Hx of IDDM Yes Comment: blood sugars a little high due to steroids around 200 PMH - Musculoskeletal Hx Musculoskeletal Disorders Yes Hx Arthritis Yes PMH - Psych Hx Psychiatric Problems No PMH - Hematology/Oncology Hx Hematology/Oncology Yes Disorders Hx Cancer Yes: multiple myeloma dx's -2015 Hx Chemotherapy Yes Hx Radiation Therapy No Comment: doing chemo tx in remission. Premorbid Status: Detail (Pt lives with spouse in a 1 story house with 6 steps and one railing at the rear entrance. His laundry is in the basement and he is generally responsible for the laundry as his is unable to climb stairs. He has a tub/shower combination with 2 grab bars and a shower bench and a standard height toilet without grab bars. His reports he has difficulty getting up from the toilet at times. Along with the laundry, he is responsible for taking out the trash and putting the dishes away. His is responsible for meal prep. He has a standard walker and a straight cane but usually ambulates without an assistive device. reports that patient frequently furniture cruises at home. Occasionally requires urinal next to his bed when he has episodes of increased weakness and is unable to ambulate to bathroom in time.) Social History: Detail (Supportive ) Precautions: [place], Fall - Time With Patient Total Time Spent With Patient (Min): 30 Subjective Information - Subjective Information Per Patient (Patient does not report pain. During subjective interview, patient fell asleep two times. Patient appeared lethargic throughout evaluation.) Objective Data - Mental Status Patient Orientation: Person, Place (Patient was aware of his , age, and current location. However, patient reported that today was in October in 1983. Once informing patient of correct date, patient was asked who the current president was and patient was able to answer correctly.) - ROM Within normal limits (Gross lower extremity range of motion was assessed and appeared to be within functional limits with no significant deficits noted.) - Strength/Tone Not within normal limits (Patient was found to have decreased hip flexion strength bilaterally rated as a 3+/5 and bilateral ankle dorsiflexion was rated as 4/5. Remainder of lower extremity strength was found to be within functional limits.) - Bed Mobility Dependent (Patient transfered from supine to R edge of bed with verbal cueing for sequencing and moderate assistance x2 for scooting towards edge of bed. When patient reached for grab bar to help assist in sitting transition, noticeable shakiness of upper extremities due to weakness was observed. Patient reported no dizziness or lightheadedness once sitting.) - Transfers Dependent (Patient transfered from sitting EOB to standing with minimal assistance x2 with 2-wheeled walker for support.) - Balance Balance Standing: Fair (Patient was assessed for standing balance with perturbations in anterior, posterior, and lateral directions. Patient demonstrated increased anterior lean for compensation. During lateral perturbations patient reached for 2-wheeled walker for support.) - Gait Detail (Patient ambulated with CGAx2 for safety and line management from R EOB to recliner 8 feet. Patient demonstrated ability to cognitively maneuver around objects in room during ambulation. Noticeable decreased heel strike and stride length was noticed throughout ambulation.) Therapy Assessment - Therapy Assessment Detail (Patient was lethargic throughout assessment but showed increased awar eness with activity. Patient required moderate assistance x2 for supine to R EOB. Patient was found to have decreased strength in ankle dorsiflexors and hip flexors which impairs patient's ability in independent transfers and household ambulation. During standing balance assessment, patient was found to have decreased ability to maintain standing balance with lateral perturbations, indicating possible fall risk. At this time, patient is unsafe to complete independent ADL's and is at an increased fall risk. Patient requires subacute PT rehab to regain strength and independence in ADL's prior to D/C home.) Problem List - Problem List Physical Therapy Problem List: Detail (1. Decreased strength in hip flexors and ankle dorsiflexors impairing bed mobility, transfers, and gait. 2. Decreased tolerance for activity to complete independent ADL's 3. Fair standing balance leading to potential future falls) Occupational Therapy Problem List: Detail (1. Decreased activity tolerance needed for safe and Ind ADLs/IADLs. 2. Decreased Ind with functional mobility needed for self cares. 3. Decreased Ind with total body dressing and bathing.) Goals - Goals Physical Therapy Goals: 1. Patient will improve standing balance by not reaching for walker for support during lateral perturbations to help decrease fall risk. 2. Patient will ambulate total of 30 feet with supervision x1 using 2-wheeled walker to help aide in transition to independence in household ambulation. 3. Patient will complete bilateral standing marches 10x each side using 2-wheeled walker for support to help increase hip flexor strength to progress in independent ADL's. 4. Patient will be CGAx1 from supine to sitting edge of bed to improve independence in bed mobility. Occupational Therapy Goals: 1. Pt will demonstrate improved endurance to allow safe and Ind self cares. 2. Pt will be Ind with bed mobility and transfers in a safe manner to allow Ind with ADLs. 3. Pt will be safe and Ind with total body dressing. Prognosis - Prognosis Moderate Plan - Plan Physical Therapy Plan: PT daily Monday-Monday is recommended focused on strengthening, bed mobility, transfers, gait training, and balance training. Further PT subacute rehab is recommended to maximize patient safety and promote independence in ADL's. Occupational Therapy Plan: OT 2-4 times per week to address goals as above. Recommend IP rehab stay to maximize safety and Ind with functional mobility, ADLs and IADLs.
--- NOTE | 2018-12-07 17:25 | Inpatient Certification ---
Inpatient Certification Admit to inpatient care: Based on my medical assessment, after consideration of patient's risk factors (age, co-morbidities and patient presenting symptoms and acuity), I expect that this patient will remain in the hospital greater than or equal to two midnights and that the services needed warrant inpatient care because: Patient Risk Factors: [Age, comorbidities] Estimated length of stay: [48-72 hours] The patient may reasonably be expected to be discharged or transferred to a hospital within 96 hours after admission to [facility]. Services needed: [PT/OT, IV Therapy, Nursing Services] Post hospital care (if known): [Sub acute rehab] I certify that my determination is in accordance with my understanding of Medicare requirements for reasonable and necessary inpatient services. 12/07/18 17:24
--- NOTE | 2018-12-07 17:26 | Physician Progress Note ---
Subjective - Date Date of Physician Progress Note: 12/07/18 - Subjective Subjective Comment: Sitting up in bedside chair with legs in dependent position. Alert and oriented to self, place and situation. Not oriented to time. Poor historian. Denies SOB or HENRY. Denies pain. States that he has a little bit of nasal drip. Staff reported that he was very lethargic and "out of it" this morning. Did receive a dose of IV Benadryl per standing orders d/t insomnia and restlessness in the middle of the night. Also received Trazodone. Contacted to discuss pt condition and medications. Spouse reported that pt has not been taking Trazodone. States that he has had his days and nights flipped for a long time. Will often not sleep in the night. Spouse states that he has not been on any new medications in the last month with the exception of Dr. Osman (PCP) starting him on a Medrol dose pack on 12/04/18. Spouse worried that he is worsening however does state that when he gets even the slightest illness, it takes a toll on him since he had a stroke. Objective - Multidiciplinary Team Multidiciplinary Team: Case Management, Nursing, OT, PT - Vital Signs Vital Signs: Vital Signs - Last 24 Hrs Temp Pulse Pulse Pulse Resp BP Pulse Ox 12/07/18 08:38 57 L 20 93 L 12/07/18 07:50 98.3 F 59 L 16 126/53 92 L 12/07/18 04:00 98.0 F 59 L 20 146/62 94 L 12/07/18 00:00 98.3 F 51 L 20 134/60 94 L 12/06/18 20:00 98.4 F 55 L 20 118/47 97 - General General Appearance: Alert, Cooperative, No acute distress, Moderate distress Limitations: Altered mental status - Head Head exam detail: Abrasion. negative: Contusion, Gloria's sign, General tenderness, Hematoma, Laceration - Eye Eye exam: Normal appearance, Other (Small area of ecchymosis to the left edgard- orbital region on examination.). negative: Conjunctival injection, Periorbital swelling, Periorbital tenderness - ENT Ear exam: negative: Auricular hematoma, Auricular trauma Nasal Exam: negative: Active bleeding, Discharge, Dried blood, Foreign body Mouth exam: negative: Drooling, Laceration, Muffled voice, Tongue elevation - Neck Neck exam: Normal inspection. negative: Meningismus, Tenderness - Respiratory Respiratory exam: Other (Fine Crackles to bilateral lower lobes). negative: Respiratory distress, Rhonchi, Stridor, Wheezes - Cardiovascular Cardiovascular Exam: Regular rate, Normal rhythm (occasional PVCs) - GI/Abdominal GI/Abdominal exam: Soft. negative: Distended, Rebound, Rigid, Tenderness - Rectal Rectal exam: Deferred - exam: Deferred - Extremities Extremities exam: Pedal edema (3+ bilateral pedal edema) - Back Back exam: Denies: CVA tenderness (R), CVA tenderness (L) - Neurological Neurological exam: Other (Awake, answers some questions on examination.) - Psychiatric Psychiatric exam: Normal affect, Normal mood - Skin Skin exam: Normal color. negative: Abrasion Type of lesion: negative: abrasion Assessment and Plan - Assessment and Plan (1) Bilateral lower extremity edema Current Visit: Yes Status: Acute Base Code: R60.0 - LOCALIZED EDEMA Comment: 12/07/18 -+3 pitting edema to BLE (venous insufficiency vs. heart failure) -BNP ordered -Continue Lasix 20mg daily, may consider increase in dose in a.m. -D/C IVF (2) Episode of syncope Current Visit: Yes Status: Acute Base Code: R55 - SYNCOPE AND COLLAPSE Comment: 12/06/18 -BP 129/56, HR 57 -EKG: NSR with PVCs -Echocardiogram: Normal LV function, no vegetation to Aortic Valve -Cardiology Consult: No further workup needed during this inpatient visit -Telemetry D/C'd -CT of head and neck: negative for acute process -Fall precautions (3) Weakness Current Visit: No Status: Acute Base Code: R53.1 - WEAKNESS Comment: 12/06/18 -Increasing weakness per spouse x several weeks -Fall on 12/05/18, CT of head and neck normal -Mg 1.1, ordered IV Mag sulfate to replace, other electrolytes WNL -U/A negative -CXR negative -PT/OT working with pt -Working on SANJAY placement d/t deconditioning (4) Sinusitis Current Visit: Yes Status: Acute Base Code: J32.9 - CHRONIC SINUSITIS, UNSPECIFIED Comment: 12/06/18 -Head CT: Maxillary and ethmoid sinusitis -Afebrile x 24 hours -Azithromycin changed from IV to PO, 1 dose in a.m. then stop (500mg daily x 3 completed) -D/C Rocephin (5) Altered mental status Current Visit: Yes Status: Acute Qualifiers: Altered mental status type: disorientation Qualified Code(s): R41.0 - Disorientation, unspecified Base Code: R41.82 - ALTERED MENTAL STATUS, UNSPECIFIED Comment: 12/07/18 - reports increased confusion from baseline -U/A: Negative -CXR: Negative -PT/OT to evaluate (6) Full code status Current Visit: No Status: Acute Base Code: Z78.9 - OTHER SPECIFIED HEALTH STATUS Comment: 12/06/18 -Patient is full code status (7) Hyperglycemia due to type 2 diabetes mellitus Current Visit: No Status: Acute Qualifiers: Diabetes mellitus usp insulin use: with president celebrity acquistion use Qualified Code(s): E11.65 - Type 2 diabetes mellitus with hyperglycemia; Z79.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 Base Code: E11.65 - TYPE 2 DIABETES MELLITUS WITH HYPERGLYCEMIA Comment: 12/06/18 -Continue home insulin (Novolog and Levemir) regimen as per MAR -AC & HS accuchecks -Continue Metformin -Holding oral and IV steroid tx d/t diabetes (8) DVT prophylaxis Current Visit: No Status: Acute Base Code: [id number] - Comment: 12/06/18 -High risk d/t age, hx of CVA and other comorbidities -Platelets 70 -SCDs ordered for now -Recheck CBC Results - Labs Result Diagrams: 12/07/18 06:13 12/07/18 06:13 Labs Last 24 Hours: Laboratory Results - last 24 hr 12/06/18 12/06/18 12/07/18 17:21 21:53 06:13 WBC 2.9 L RBC 3.02 L Hgb 9.0 L Hct 30.0 L MCV 99.3 H MCH 29.8 MCHC 30.0 L RDW 16.5 H Plt Count 74 L MPV 11.6 H Neutrophils % 44.0 L Band Neutrophils % 6.0 H Eosinophils % Not Reportable Basophils % Not Reportable Absolute Neutrophils 1.53 Lymphocytes 20.0 Monocytes 24.0 H Platelet Estimate Decreased Anisocytosis 1+ Eosinophil Count 6.0 Sodium Potassium Chloride Carbon Dioxide Anion Gap BUN Creatinine Estimated GFR POC Glucose 301 H 184 H Random Glucose Calcium 12/07/18 12/07/18 12/07/18 06:13 07:56 11:41 WBC RBC Hgb Hct MCV MCH MCHC RDW Plt Count MPV Neutrophils % Band Neutrophils % Eosinophils % Basophils % Absolute Neutrophils Lymphocytes Monocytes Platelet Estimate Anisocytosis Eosinophil Count Sodium 141 Potassium 3.9 Chloride 109 H Carbon Dioxide 23.0 Anion Gap 9.0 BUN 34 H Creatinine 1.5 H Estimated GFR 48 POC Glucose 111 H 108 Random Glucose 120 H Calcium 8.6 L 12/07/18 16:51 WBC RBC Hgb Hct MCV MCH MCHC RDW Plt Count MPV Neutrophils % Band Neutrophils % Eosinophils % Basophils % Absolute Neutrophils Lymphocytes Monocytes Platelet Estimate Anisocytosis Eosinophil Count Sodium Potassium Chloride Carbon Dioxide Anion Gap BUN Creatinine Estimated GFR POC Glucose 85 Random Glucose Calcium DVT/PE Assessment - Risk for VTE Risk for VTE: No Risk Level: High Risk Assessment Date: 12/06/18 Risk Assessment Time: 01:00 VTE Orders Placed or Will Be Placed: Yes - Active Medicaitons Current Medications: Current Medications Acetaminophen (Tylenol 500mg Tab) 1,000 mg PO Q6H PRN PRN Reason: PAIN - MILD(1-4)/FEVER Baclofen (Lioresal) 10 mg PO TID PRN PRN Reason: MUSCLE SPASM Furosemide (Lasix) 20 mg PO DAILY [facility] Last Admin: 12/07/18 09:14 Dose: 20 mg Documented by: Guaifenesin (Mucinex) 600 mg PO BID [facility] Last Admin: 12/07/18 09:14 Dose: 600 mg Documented by: CEFTRIAXONE 1GM/50ML BAG (Ceftriaxone 1 Gm-D5w Bag) 1 gm in 50 mls @ 100 mls/hr IVPB Q24H [facility] Last Infusion: 12/06/18 22:16 Dose: Infused Documented by: Azithromycin 500 mg/ Sodium (Chloride) 250 mls @ 250 mls/hr IVPB Q24H [facility] Stop: 12/11/18 20:31 Last Infusion: 12/06/18 23:16 Dose: Infused Documented by: Sodium Chloride () 1,000 mls @ 42 mls/hr IV .[id number] PRN PRN Reason: LARGE VOLUME IV Last Admin: 12/07/18 02:14 Dose: 42 mls/hr Documented by: Insulin Aspart (Novolog Flexpen) 4 unit SQ 0745,1145 [facility] Last Admin: 12/07/18 12:01 Dose: 4 unit Documented by: Insulin Aspart (Novolog Flexpen) 3 unit SQ 1715 [facility] Last Admin: 12/07/18 16:54 Dose: Not Given Documented by: Insulin Aspart (Novolog Flexpen) 1 unit SQ TIDINS [facility]; Protocol Last Admin: 12/07/18 16:54 Dose: Not Given Documented by: Insulin Detemir (Levemir Flextouch) [facility] Last Admin: 12/07/18 12:02 Dose: 9 unit Documented by: Insulin Detemir (Levemir Flextouch) 11 unit SQ QHS [facility] Last Admin: 12/06/18 22:20 Dose: 11 unit Documented by: [facility] ([facility]alatan) [facility] Last Admin: 12/06/18 22:19 Dose: Not Given Documented by: Magnesium Oxide (Mag Ox) 400 mg PO BID [facility] Last Admin: 12/07/18 09:14 Dose: 400 mg Documented by: Metformin HCl (Glucophage Ir) 1,000 mg PO BIDWM [facility] Last Admin: 12/07/18 08:30 Dose: 1,000 mg Documented by: Pantoprazole Sodium (Protonix) 40 mg PO DAILYAC [facility] Last Admin: 12/07/18 07:22 Dose: 40 mg Documented by: Tamsulosin HCl (Flomax) 0.4 mg PO DAILY [facility] Last Admin: 12/07/18 09:14 Dose: 0.4 mg Documented by: Timolol Maleate (Timoptic) 1 drop OPTH BID [facility] Last Admin: 12/07/18 10:00 Dose: 1 drop Documented by: Trazodone HCl (Desyrel) 50 mg PO QHS [facility] Last Admin: 12/06/18 22:10 Dose: 50 mg Documented by: AMI Plan - Labs Result Diagrams: 12/07/18 06:13 12/07/18 06:13
[2018-12-07] MEDS: CEFTRIAXONE 1GM/50ML BAG 1 GM/50 ML BAG IVPB SCH (20:46)
[2018-12-07] MEDS: OLANZAPINE 5MG TABLET PO SCH (21:31)
[2018-12-07] MEDS: LATANOPROST 0.005% OPTH SOLUTION 2.5ML BOTTLE OPTH SCH (21:32)
[2018-12-08 06:10] LABS: ABSOLUTE NEUTROPHIL COUNT 1.72; BASO % 1.2 % (0-6); EOS % 3.4 % (0-6); GRAN % 52.5 % (47-80); HEMATOCRIT 29.7 % (42.0-52.0); HEMOGLOBIN 9.1 gm/dl (14.0-18.0); LYMPH % 29.1 % (16-45); MEAN CELL VOLUME 98.3 fl (81-97); MEAN CORPUSCULAR HEMOGLOBIN 30.1 pg (27-33); MEAN CORPUSCULAR HGB CONC 30.6 g/dl (32-36); MONO % 13.8 % (0-9); RED BLOOD COUNT 3.02 M/uL (4.40-5.70); RED CELL DISTRIBUTION WIDTH 16.2 % (11.5-14.5); WHITE BLOOD COUNT W/O DIFF 3.3 K/uL (4.2-12.2)
[2018-12-08 06:13] LABS: PLATELET COUNT 85 K/uL (130-400)
[2018-12-08 06:20] LABS: CREATININE 1.5 mg/dL (0.7-1.2)
[2018-12-08] MEDS: PANTOPRAZOLE SODIUM 40 MG TABLET PO SCH (06:43)
[2018-12-08] MEDS: NOVOLOG FLEXPEN (INSULIN ASPART) 100 UNITS/ML SQ SCH ×6 (08:14→17:32)
[2018-12-08] MEDS: LEVEMIR FLEXTOUCH 100 UNIT/ML INSULIN PEN SQ SCH ×2 (08:16→21:52)
[2018-12-08] MEDS: METFORMIN 500 MG TABLET PO SCH ×2 (08:16→17:36)
[2018-12-08] MEDS: OLANZAPINE 5MG TABLET PO SCH ×2 (09:52→21:50)
[2018-12-08] MEDS ORDERED: AZITHROMYCIN 500 MG TABLET PO SCH (10:00)
[2018-12-08] MEDS: MAGNESIUM OXIDE 400 MG TABLET PO SCH ×3 (10:10→21:49)
[2018-12-08] MEDS: FUROSEMIDE 20 MG TABLET PO SCH (10:11)
[2018-12-08] MEDS: GUAIFENESIN 600 MG TABCR PO SCH ×2 (10:11→21:49)
[2018-12-08] MEDS: TIMOLOL MALEATE 0.5% 5ML BTL OPTH SCH ×2 (10:11→21:51)
[2018-12-08] MEDS: TAMSULOSIN HCL 0.4 MG CAP.ER.24H PO SCH (10:11)
[2018-12-08] MEDS ORDERED: ZINC OXIDE 28.35 GM TUBE TOP ONE (10:55)
[2018-12-08] MEDS ORDERED: POTASSIUM CHLORIDE 10 MEQ TAB PO ONE (13:00)
[2018-12-08] MEDS ORDERED: FUROSEMIDE 20 MG TABLET PO ONE (13:00)
--- NOTE | 2018-12-08 16:11 | Physician Progress Note ---
Subjective - Date Date of Physician Progress Note: 12/08/18 - Subjective Subjective Comment: Sitting up in bedside chair with legs in dependent position. Alert and oriented to self, place and situation. Not oriented to time. Poor historian. Denies SOB or HENRY. Denies pain. States that he has a little bit of nasal drip. Staff reported that he was very lethargic and "out of it" this morning. Did receive a dose of IV Benadryl per standing orders d/t insomnia and restlessness in the middle of the night. Also received Trazodone. Contacted to discuss pt condition and medications. Spouse reported that pt has not been taking Trazodone. States that he has had his days and nights flipped for a long time. Will often not sleep in the night. Spouse states that he has not been on any new medications in the last month with the exception of Dr. Osman (PCP) starting him on a Medrol dose pack on 12/04/18. Spouse worried that he is worsening however does state that when he gets even the slightest illness, it takes a toll on him since he had a stroke. 12/08/18 1600 Staff reported that he slept well the previous night. Has been getting up frequently to urinate d/t increased Lasix dose. Denies having any SOB. Bowels moving. Reports that his knees hurt today. Spouse had stated previously that he often has knee pain d/t arthritis. Objective - Multidiciplinary Team Multidiciplinary Team: Case Management, Nursing, OT, PT - Vital Signs Vital Signs: Vital Signs - Last 24 Hrs Temp Pulse Resp BP Pulse Ox 12/08/18 12:00 98.7 F 54 L 18 135/40 94 L 12/08/18 09:00 20 12/08/18 08:00 99.1 F 60 18 134/63 100 12/08/18 04:00 98.5 F 87 20 129/64 96 12/07/18 23:28 97.9 F 53 L 20 124/61 93 L 12/07/18 20:00 98.2 F 52 L 20 142/65 94 L 12/07/18 17:30 97.6 F - General General Appearance: Alert, Cooperative, No acute distress Limitations: Altered mental status - Head Head exam detail: Abrasion. negative: Contusion, Gloria's sign, General tenderness, Hematoma, Laceration - Eye Eye exam: Normal appearance, Other (Small area of ecchymosis to the left edgard- orbital region on examination.). negative: Conjunctival injection, Periorbital swelling, Periorbital tenderness - ENT Ear exam: negative: Auricular hematoma, Auricular trauma Nasal Exam: negative: Active bleeding, Discharge, Dried blood, Foreign body Mouth exam: negative: Drooling, Laceration, Muffled voice, Tongue elevation - Neck Neck exam: Normal inspection. negative: Meningismus, Tenderness - Respiratory Respiratory exam: negative: Respiratory distress, Rhonchi, Stridor, Wheezes - Cardiovascular Cardiovascular Exam: Regular rate, Normal rhythm - GI/Abdominal GI/Abdominal exam: Soft. negative: Distended, Rebound, Rigid, Tenderness - Rectal Rectal exam: Deferred - exam: Deferred - Extremities Extremities exam: Pedal edema (3+ bilateral pedal edema) - Back Back exam: Denies: CVA tenderness (R), CVA tenderness (L) - Neurological Neurological exam: Other (Awake, answers some questions on examination.) - Psychiatric Psychiatric exam: Normal affect, Normal mood - Skin Skin exam: Normal color. negative: Abrasion Type of lesion: negative: abrasion Assessment and Plan - Assessment and Plan (1) Bilateral lower extremity edema Current Visit: Yes Status: Acute Base Code: R60.0 - LOCALIZED EDEMA Comment: 12/08/18 -+3 pitting edema to BLE (venous insufficiency vs. heart failure) -pro-BNP 3,066 -Home dose of Lasix 20mg q. am PLUS an additional Lasix 20mg @ 1300 given today -Potassium 10meq x 1 today -IV saline locked -BMP and BNP tomorrow (2) Weakness Current Visit: No Status: Acute Base Code: R53.1 - WEAKNESS Comment: 12/08/18 -Increasing weakness per spouse x several weeks -Fall on 12/05/18, CT of head and neck normal -Mg 1.1, ordered IV Mag sulfate to replace, other electrolytes WNL -U/A negative -CXR negative -PT/OT working with pt -Transfer to [facility] pending insurance approval (3) Sinusitis Current Visit: Yes Status: Acute Base Code: J32.9 - CHRONIC SINUSITIS, UNSPECIFIED Comment: 12/08/18 -Loratadine 10mg po q. day -Head CT: Maxillary and ethmoid sinusitis -Afebrile x 24 hours (4) Altered mental status Current Visit: Yes Status: Acute Qualifiers: Altered mental status type: disorientation Qualified Code(s): R41.0 - Disorientation, unspecified Base Code: R41.82 - ALTERED MENTAL STATUS, UNSPECIFIED Comment: 12/08/18 - reports increased confusion from baseline -U/A: Negative -CXR: Negative -PT/OT to evaluate (5) Full code status Current Visit: No Status: Acute Base Code: Z78.9 - OTHER SPECIFIED HEALTH STATUS Comment: 12/08/18 -Patient is full code status (6) Hyperglycemia due to type 2 diabetes mellitus Current Visit: No Status: Acute Qualifiers: Diabetes mellitus long term care social worker insulin use: with correction use Qualified Code(s): E11.65 - Type 2 diabetes mellitus with hyperglycemia; Z79.4 - manager intermediate (current) use of insulin Base Code: E11.65 - TYPE 2 DIABETES MELLITUS WITH HYPERGLYCEMIA Comment: 12/08/18 -Continue home insulin (Novolog and Levemir) regimen as per MAR -AC & HS accuchecks -Continue Metformin -Holding oral and IV steroid tx d/t diabetes (7) DVT prophylaxis Current Visit: No Status: Acute Base Code: [id number] - Comment: 12/08/18 -High risk d/t age, hx of CVA and other comorbidities -Platelets 70 -SCDs ordered for now -Recheck CBC Results - Labs Result Diagrams: 12/08/18 05:55 12/08/18 05:55 Labs Last 24 Hours: Laboratory Results - last 24 hr 12/07/18 12/07/18 12/07/18 06:13 16:51 22:00 WBC RBC Hgb Hct MCV MCH MCHC RDW Plt Count MPV Gran % Lymphocytes % Monocytes % Eosinophils % Basophils % Absolute Neutrophils Sodium Potassium Chloride Carbon Dioxide Anion Gap BUN Creatinine Estimated GFR POC Glucose 85 142 H Random Glucose Calcium NT-Pro-B Natriuret Pep 3066.00 H 12/08/18 12/08/18 12/08/18 05:55 05:55 12:24 WBC 3.3 L RBC 3.02 L Hgb 9.1 L Hct 29.7 L MCV 98.3 H MCH 30.1 MCHC 30.6 L RDW 16.2 H Plt Count 85 L MPV 11.0 H Gran % 52.5 Lymphocytes % 29.1 Monocytes % 13.8 H Eosinophils % 3.4 Basophils % 1.2 Absolute Neutrophils 1.72 Sodium 140 Potassium 3.9 Chloride 106 Carbon Dioxide 25.0 Anion Gap 9.0 BUN 40 H Creatinine 1.5 H Estimated GFR 48 POC Glucose 159 H Random Glucose 117 H Calcium 9.4 NT-Pro-B Natriuret Pep DVT/PE Assessment - Risk for VTE Risk for VTE: No Risk Level: High Risk Assessment Date: 12/06/18 Risk Assessment Time: 01:00 VTE Orders Placed or Will Be Placed: Yes - Active Medicaitons Current Medications: Current Medications Acetaminophen (Tylenol 500mg Tab) 1,000 mg PO Q6H PRN PRN Reason: PAIN - MILD(1-4)/FEVER Furosemide (Lasix) 20 mg PO DAILY [facility] Last Admin: 12/08/18 10:11 Dose: 20 mg Documented by: Guaifenesin (Mucinex) 600 mg PO BID [facility] Last Admin: 12/08/18 10:11 Dose: 600 mg Documented by: Insulin Aspart (Novolog Flexpen) 4 unit SQ 0745,1145 [facility] Last Admin: 12/08/18 12:35 Dose: 4 unit Documented by: Insulin Aspart (Novolog Flexpen) 3 unit SQ 1715 [facility] Last Admin: 12/07/18 16:54 Dose: Not Given Documented by: Insulin Aspart (Novolog Flexpen) 1 unit SQ TIDINS [facility]; Protocol Last Admin: 12/08/18 12:36 Dose: 2 unit Documented by: Insulin Detemir (Levemir Flextouch) [facility] Last Admin: 12/08/18 08:16 Dose: 9 unit Documented by: Insulin Detemir (Levemir Flextouch) 11 unit SQ QHS [facility] Last Admin: 12/07/18 21:35 Dose: 11 unit Documented by: [facility] Last Admin: 12/07/18 21:32 Dose: 1 drop Documented by: Magnesium Oxide (Mag Ox) 400 mg PO BID [facility] Last Admin: 12/08/18 10:11 Dose: 400 mg Documented by: Metformin HCl (Glucophage Ir) 1,000 mg PO BIDWM [facility] Last Admin: 12/08/18 08:16 Dose: 1,000 mg Documented by: Olanzapine (Zyprexa) 2.5 mg PO QHS [facility] Pantoprazole Sodium (Protonix) 40 mg PO DAILYAC [facility] Last Admin: 12/08/18 06:43 Dose: 40 mg Documented by: Tamsulosin HCl (Flomax) 0.4 mg PO DAILY [facility] Last Admin: 12/08/18 10:11 Dose: 0.4 mg Documented by: Timolol Maleate (Timoptic) 1 drop OPTH BID [facility] Last Admin: 12/08/18 10:11 Dose: 1 drop Documented by: PEMA Plan - Labs Result Diagrams: 12/08/18 05:55 12/08/18 05:55
[2018-12-08] MEDS: ACETAMINOPHEN 500 MG TABLET PO PRN (16:24)
[2018-12-08] MEDS: LATANOPROST 0.005% OPTH SOLUTION 2.5ML BOTTLE OPTH SCH (21:52)
[2018-12-09] MEDS: ACETAMINOPHEN 500 MG TABLET PO PRN ×2 (05:06→11:32)
[2018-12-09 06:04] LABS: CREATININE 1.3 mg/dL (0.7-1.2)
[2018-12-09] MEDS: PANTOPRAZOLE SODIUM 40 MG TABLET PO SCH (06:33)
[2018-12-09] MEDS: NOVOLOG FLEXPEN (INSULIN ASPART) 100 UNITS/ML SQ SCH ×6 (08:02→18:04)
[2018-12-09] MEDS: LEVEMIR FLEXTOUCH 100 UNIT/ML INSULIN PEN SQ SCH ×2 (08:03→22:38)
[2018-12-09] MEDS: METFORMIN 500 MG TABLET PO SCH ×2 (08:07→18:04)
[2018-12-09] MEDS: TIMOLOL MALEATE 0.5% 5ML BTL OPTH SCH ×2 (09:23→22:29)
[2018-12-09] MEDS: MAGNESIUM OXIDE 400 MG TABLET PO SCH ×2 (09:23→22:31)
[2018-12-09] MEDS: LORATADINE 10 MG TABLET PO SCH (09:23)
[2018-12-09] MEDS: FUROSEMIDE 20 MG TABLET PO SCH (09:23)
[2018-12-09] MEDS: TAMSULOSIN HCL 0.4 MG CAP.ER.24H PO SCH (09:23)
[2018-12-09] MEDS: GUAIFENESIN 600 MG TABCR PO SCH ×2 (09:23→22:31)
[2018-12-09] MEDS ORDERED: POTASSIUM CHLORIDE 20 MEQ TABLET PO ONE (13:00)
[2018-12-09] MEDS ORDERED: FUROSEMIDE 20 MG TABLET PO ONE (13:00)
--- NOTE | 2018-12-09 16:28 | Physician Progress Note ---
Subjective - Date Date of Physician Progress Note: 12/09/18 - Subjective Subjective Comment: Sitting up in bedside chair with legs in dependent position. Alert and oriented to self, place and situation. Not oriented to time. Poor historian. Denies SOB or HENRY. Denies pain. States that he has a little bit of nasal drip. Staff reported that he was very lethargic and "out of it" this morning. Did receive a dose of IV Benadryl per standing orders d/t insomnia and restlessness in the middle of the night. Also received Trazodone. Contacted to discuss pt condition and medications. Spouse reported that pt has not been taking Trazodone. States that he has had his days and nights flipped for a long time. Will often not sleep in the night. Spouse states that he has not been on any new medications in the last month with the exception of Dr. Osman (PCP) starting him on a Medrol dose pack on 12/04/18. Spouse worried that he is worsening however does state that when he gets even the slightest illness, it takes a toll on him since he had a stroke. 12/08/18 1600 Staff reported that he slept well the previous night. Has been getting up frequently to urinate d/t increased Lasix dose. Denies having any SOB. Bowels moving. Reports that his knees hurt today. Spouse had stated previously that he often has knee pain d/t arthritis. 12/09/18 1630 Reports that the top of his left foot hurts. Pain 8/10. Doesn't recall hitting it. Doesn't remember if anything happened when he fell the other day. Denies having SOB. Staff reports that he is urinating frequently d/t 2nd lasix dose. No reports, by staff, that pt has not been sleeping well or having confusion outside of baseline. Objective - Multidiciplinary Team Multidiciplinary Team: Case Management, Nursing, OT, PT - Vital Signs Vital Signs: Vital Signs - Last 24 Hrs Temp Pulse Resp BP Pulse Ox 12/09/18 12:00 98.9 F 60 16 135/56 98 12/09/18 09:00 18 12/09/18 08:00 98.9 F 60 18 127/48 96 12/09/18 04:00 97.8 F 57 L 20 131/52 94 L 12/09/18 00:00 98.9 F 56 L 20 145/54 94 L 12/08/18 20:00 98.0 F 54 L 20 118/46 98 - General General Appearance: Alert, Cooperative, No acute distress Limitations: Altered mental status - Head Head exam detail: Abrasion. negative: Contusion, Gloria's sign, General tenderness, Hematoma, Laceration - Eye Eye exam: Normal appearance, Other (Small area of ecchymosis to the left edgard- orbital region on examination.). negative: Conjunctival injection, Periorbital swelling, Periorbital tenderness - ENT Ear exam: negative: Auricular hematoma, Auricular trauma Nasal Exam: negative: Active bleeding, Discharge, Dried blood, Foreign body Mouth exam: negative: Drooling, Laceration, Muffled voice, Tongue elevation - Neck Neck exam: Normal inspection. negative: Meningismus, Tenderness - Respiratory Respiratory exam: negative: Respiratory distress, Rhonchi, Stridor, Wheezes - Cardiovascular Cardiovascular Exam: Regular rate, Normal rhythm - GI/Abdominal GI/Abdominal exam: Soft. negative: Distended, Rebound, Rigid, Tenderness - Rectal Rectal exam: Deferred - exam: Deferred - Extremities Extremities exam: Pedal edema (3+ bilateral pedal edema), Other (warmth, no ecchymosis or open areas to left foot.) - Back Back exam: Denies: CVA tenderness (R), CVA tenderness (L) - Neurological Neurological exam: Other (Awake, answers some questions on examination.) - Psychiatric Psychiatric exam: Normal affect, Normal mood - Skin Skin exam: Normal color. negative: Abrasion Type of lesion: negative: abrasion Assessment and Plan - Assessment and Plan (1) Bilateral lower extremity edema Current Visit: Yes Status: Acute Base Code: R60.0 - LOCALIZED EDEMA Comment: 12/09/18 -+3 pitting edema to BLE (venous insufficiency vs. heart failure) -pro-BNP 6, down from 3066 -Home dose of Lasix 20mg q. am PLUS an additional Lasix 20mg @ 1300 given today -Potassium 10meq x 1 today -IV saline locked -BMP tomorrow -Encourage elevation of feet (2) Weakness Current Visit: No Status: Acute Base Code: R53.1 - WEAKNESS Comment: 12/09/18 -Improving -Transfer to [facility] pending insurance approval for further PT/OT (3) Sinusitis Current Visit: Yes Status: Acute Base Code: J32.9 - CHRONIC SINUSITIS, UNSPECIFIED Comment: 12/08/18 -Loratadine 10mg po q. day (4) Full code status Current Visit: No Status: Acute Base Code: Z78.9 - OTHER SPECIFIED HEALTH STATUS Comment: 12/09/18 -Patient is full code status (5) Hyperglycemia due to type 2 diabetes mellitus Current Visit: No Status: Acute Qualifiers: Diabetes mellitus group home insulin use: with group home use Qualified Code(s): E11.65 - Type 2 diabetes mellitus with hyperglycemia; Z79.4 - prison (current) use of insulin Base Code: E11.65 - TYPE 2 DIABETES MELLITUS WITH HYPERGLYCEMIA Comment: 12/09/18 -Continue home insulin (Novolog and Levemir) regimen as per MAR -AC & HS accuchecks -Continue Metformin (6) DVT prophylaxis Current Visit: No Status: Acute Base Code: [id number] - Comment: 12/09/18 -High risk d/t age, hx of CVA and other comorbidities -Platelets 70 -SCDs ordered for now Results - Labs Result Diagrams: 12/08/18 05:55 12/09/18 05:35 Labs Last 24 Hours: Laboratory Results - last 24 hr 12/08/18 12/08/18 12/09/18 16:44 21:49 05:35 Sodium 141 Potassium 3.8 Chloride 105 Carbon Dioxide 24.0 Anion Gap 12.0 BUN 35 H Creatinine 1.3 H Estimated GFR 57 POC Glucose 135 H 259 H Random Glucose 191 H Calcium 9.8 NT-Pro-B Natriuret Pep 2086.00 H 12/09/18 12/09/18 07:02 11:40 Sodium Potassium Chloride Carbon Dioxide Anion Gap BUN Creatinine Estimated GFR POC Glucose 167 H 169 H Random Glucose Calcium NT-Pro-B Natriuret Pep DVT/PE Assessment - Risk for VTE Risk for VTE: No Risk Level: High Risk Assessment Date: 12/06/18 Risk Assessment Time: 01:00 VTE Orders Placed or Will Be Placed: Yes - Active Medicaitons Current Medications: Current Medications Acetaminophen (Tylenol 500mg Tab) 1,000 mg PO Q6H PRN PRN Reason: PAIN - MILD(1-4)/FEVER Last Admin: 12/09/18 11:32 Dose: 1,000 mg Documented by: Furosemide (Lasix) 20 mg PO DAILY [facility] Last Admin: 12/09/18 09:23 Dose: 20 mg Documented by: Guaifenesin (Mucinex) 600 mg PO BID [facility] Last Admin: 12/09/18 09:23 Dose: 600 mg Documented by: Insulin Aspart (Novolog Flexpen) 4 unit SQ 0745,1145 [facility] Last Admin: 12/09/18 12:01 Dose: 4 unit Documented by: Insulin Aspart (Novolog Flexpen) 3 unit SQ 1715 [facility] Last Admin: 12/08/18 17:28 Dose: 3 unit Documented by: Insulin Aspart (Novolog Flexpen) 1 unit SQ TIDINS [facility]; Protocol Last Admin: 12/09/18 12:02 Dose: 2 unit Documented by: Insulin Detemir (Levemir Flextouch) [facility] [place] Last Admin: 12/09/18 08:03 Dose: 9 unit Documented by: Insulin Detemir (Levemir Flextouch) 11 unit SQ QHS [facility] Last Admin: 12/08/18 21:52 Dose: 11 unit Documented by: [facility]an[facility] ([facility]) [facility] Last Admin: 12/08/18 21:52 Dose: 1 drop Documented by: Loratadine (Claritin) 10 mg PO DAILY [facility] Last Admin: 12/09/18 09:23 Dose: 10 mg Documented by: Magnesium Oxide (Mag Ox) 400 mg PO BID [facility] Last Admin: 12/09/18 09:23 Dose: 400 mg Documented by: Metformin HCl (Glucophage Ir) 1,000 mg PO BIDWM [facility] Last Admin: 12/09/18 08:07 Dose: 1,000 mg Documented by: Olanzapine (Zyprexa) 2.5 mg PO QHS [facility] Last Admin: 12/08/18 21:50 Dose: 2.5 mg Documented by: Pantoprazole Sodium (Protonix) 40 mg PO DAILYAC [facility] Last Admin: 12/09/18 06:33 Dose: 40 mg Documented by: Tamsulosin HCl (Flomax) 0.4 mg PO DAILY [facility] Last Admin: 12/09/18 09:23 Dose: 0.4 mg Documented by: Timolol Maleate (Timoptic) 1 drop OPTH BID [facility] Last Admin: 12/09/18 09:23 Dose: 1 drop Documented by: AMI Plan - Labs Result Diagrams: 12/08/18 05:55 12/09/18 05:35
[2018-12-09] MEDS ORDERED: ACETAMINOPHEN 325 MG TAB PO PRN (20:55)
[2018-12-09] MEDS: OLANZAPINE 5MG TABLET PO SCH (22:30)
[2018-12-09] MEDS: LATANOPROST 0.005% OPTH SOLUTION 2.5ML BOTTLE OPTH SCH (22:38)
[2018-12-10 06:45] LABS: CREATININE 1.4 mg/dL (0.7-1.2)
--- NOTE | 2018-12-10 07:35 | RADIOLOGY REPORT ---
EXAM: LEFT FOOT, TWO VIEWS HISTORY: FALL THREE DAYS PRIOR. LEFT FOOT PAIN. TECHNIQUE: Two views of the left foot were obtained. Comparison: None. FINDINGS: There is prominent dorsal forefoot soft tissue swelling. The bones are osteopenic. No clearly acute osseous abnormality is seen. IMPRESSION: MARKED DORSAL FOREFOOT SOFT TISSUE SWELLING WITHOUT CONCLUSIVE ACUTE OSSEOUS ABNORMALITY. IF PERSISTENT CONCERN FOR OCCULT FRACTURE, FURTHER ASSESSMENT WITH CT OR MR IS RECOMMENDED. JOB [facility]BER: [id number] [facility]
[2018-12-10] MEDS: LEVEMIR FLEXTOUCH 100 UNIT/ML INSULIN PEN SQ SCH (08:11)
[2018-12-10] MEDS: NOVOLOG FLEXPEN (INSULIN ASPART) 100 UNITS/ML SQ SCH ×4 (08:12→13:09)
[2018-12-10] MEDS: METFORMIN 500 MG TABLET PO SCH (08:13)
[2018-12-10] MEDS: PANTOPRAZOLE SODIUM 40 MG TABLET PO SCH (08:13)
[2018-12-10] MEDS ORDERED: FUROSEMIDE 20 MG TABLET PO SCH (10:00)
[2018-12-10] MEDS ORDERED: POTASSIUM CHLORIDE 20 MEQ TABLET PO SCH (10:00)
[2018-12-10] MEDS: MAGNESIUM OXIDE 400 MG TABLET PO SCH (10:23)
[2018-12-10] MEDS: LORATADINE 10 MG TABLET PO SCH (10:23)
[2018-12-10] MEDS: TIMOLOL MALEATE 0.5% 5ML BTL OPTH SCH (10:23)
[2018-12-10] MEDS: GUAIFENESIN 600 MG TABCR PO SCH (10:23)
[2018-12-10] MEDS: TAMSULOSIN HCL 0.4 MG CAP.ER.24H PO SCH (10:23)
--- NOTE | 2018-12-10 12:58 | Discharge Summary ---
Providers Discharge Summary Date: 12/10/18 Date of admission: 12/05/18 21:05 Attending physician: MITCHEL JACOB Primary care physician: BUDDY OSMAN D.O. Consults: Consult Orders 12/06/18 09:59 Consult - Cardiology NOW Consulting Provider: LINDA KNIGHT Physician Instructions: Reason For Exam: syncopal episode Does pt have current waist cutter?: Unknown Physical Exam - Vital Signs Vital Signs: Vital Signs - Last 24 Hrs Temp Pulse Pulse Pulse Resp BP Pulse Ox 12/10/18 11:38 98.8 F 66 18 138/68 97 12/10/18 08:52 20 12/10/18 06:00 97.9 F 64 20 124/56 96 12/09/18 21:02 97.9 F 60 20 154/58 95 12/09/18 18:00 56 L 18 85/56 96 - General General Appearance: Alert, Cooperative, No acute distress Limitations: Altered mental status - Head Head exam detail: Abrasion. negative: Contusion, Gloria's sign, General tenderness, Hematoma, Laceration - Eye Eye exam: Normal appearance, Other (Small area of ecchymosis to the left edgard- orbital region on examination.). negative: Conjunctival injection, Periorbital swelling, Periorbital tenderness - ENT Ear exam: negative: Auricular hematoma, Auricular trauma Nasal Exam: negative: Active bleeding, Discharge, Dried blood, Foreign body Mouth exam: negative: Drooling, Laceration, Muffled voice, Tongue elevation - Neck Neck exam: Normal inspection. negative: Meningismus, Tenderness - Respiratory Respiratory exam: negative: Respiratory distress, Rhonchi, Stridor, Wheezes - Cardiovascular Cardiovascular Exam: Regular rate, Normal rhythm - GI/Abdominal GI/Abdominal exam: Soft. negative: Distended, Rebound, Rigid, Tenderness - Rectal Rectal exam: Deferred - exam: Deferred - Extremities Extremities exam: Pedal edema (3+ bilateral pedal edema), Other (warmth, no ecchymosis or open areas to left foot.) - Back Back exam: Denies: CVA tenderness (R), CVA tenderness (L) - Neurological Neurological exam: Other (Awake, answers some questions on examination.) - Psychiatric Psychiatric exam: Normal affect, Normal mood - Skin Skin exam: Normal color. negative: Abrasion Type of lesion: negative: abrasion Hospitalization - Hospitalization Admission Diagnosis: Community Acquired Pneumonia. Sepsis. CRF - Problem List/Discharge Diagnosis (1) Bilateral lower extremity edema Status: Acute Base Code: R60.0 - LOCALIZED EDEMA Comment: 12/10/18 -+2 pitting edema to BLE (venous insufficiency vs. heart failure) -Lasix 20mg PO BID -Potassium 20meq daily -Monitor BMP -Encourage elevation of feet (2) Weakness Status: Acute Base Code: R53.1 - WEAKNESS Comment: 12/10/18 -Improving -Transfer to [facility] for further PT/OT (3) Sinusitis Status: Acute Base Code: J32.9 - CHRONIC SINUSITIS, UNSPECIFIED Comment: 12/10/18 -Loratadine 10mg po q. day (4) Full code status Status: Acute Base Code: Z78.9 - OTHER SPECIFIED HEALTH STATUS Comment: 12/10/18 -Patient is full code status (5) Hyperglycemia due to type 2 diabetes mellitus Status: Acute Discharge Diagnosis: Diabetes mellitus senior care insulin use: with senior care use Qualified Code(s): E11.65 - Type 2 diabetes mellitus with hyperglycemia; Z79.4 - pathological technician (current) use of insulin Base Code: E11.65 - TYPE 2 DIABETES MELLITUS WITH HYPERGLYCEMIA Comment: 12/10/18 -Continue home insulin (Novolog and Levemir) regimen as per [facility] -AC & HS accuchecks -Continue Metformin (6) DVT prophylaxis Status: Acute Base Code: CBS0375 - Comment: 12/10/18 -High risk d/t age, hx of CVA and other comorbidities -Low platelets (70s-80s) - Hospitalization Course Disposition: [facility] Hospital Course: Marcello Win is a 78 y.o. M who was brought to the [facility] ED per EMS for evaluation d/t a fever, fall and generalized weakness. Pt is a poor historian and is unable to elaborate on the details of the fall. reported, via telephone discussion, that he has a hx of multiple strokes, an AVR in approximately 2011 (which was done at [facility]), DM II, CKD III and hx of multiple myeloma. PCP: Dr. Osman ED Course Vitals: T 102.5, HR 76, BP 148/67, RR 20, SPO2 88% on RA Head CT: Maxillary and Ethmoid sinusitis CXR: No acute process Cervical CT: DJD, no fracture Labs: WBC 4.7, Hgb 10.6, platelets 86, BUN 44, Creat 1.8, Lactic Acid 2.1, Trops <0.010 U/A: Negative 12/06/18 1000 Vitals: T 98.1, HR 57, BP 129/56, RR 18, SpO2 100% on 2L NC Poor historian. Alert and oriented to self and some of situation. Is able to state who his PCP is, with whom he lives ( [place]) and that he had a fall the previous day. Denies having any SOB, HENRY, abdominal pain, chest pain or constipation. Only complaint is of right knee pain. contacted to discuss history and symptoms. stated that he had an AVR in [address] Ross at [facility] and believes his next appointment is in December or January. Reports that she is having increasing difficulty taking care of him d/t his increasing weakness and more confusion. States that he has been worsening over the last several weeks but has become more weak in the last few days. She reports that he hasn't been moving around as much and has noticed more swelling in his lower legs in the last few weeks. She states that he always has pain in his knees and lower back. 12/07/18 Sitting up in bedside chair with legs in dependent position. Alert and oriented to self, place and situation. Not oriented to time. Poor historian. Denies SOB or HENRY. Denies pain. States that he has a little bit of nasal drip. Staff reported that he was very lethargic and "out of it" this morning. Did receive a dose of IV Benadryl per standing orders d/t insomnia and restlessness in the middle of the night. Also received Trazodone. Contacted to discuss pt condition and medications. Spouse reported that pt has not been taking Trazodone. States that he has had his days and nights flipped for a long time. Will often not sleep in the night. Spouse states that he has not been on any new medications in the last month with the exception of Dr. Osman (PCP) starting him on a Medrol dose pack on 12/04/18. Spouse worried that he is worsening however does state that when he gets even the slightest illness, it takes a toll on him since he had a stroke. 12/08/18 1600 Staff reported that he slept well the previous night. Has been getting up frequently to urinate d/t increased Lasix dose. Denies having any SOB. Bowels moving. Reports that his knees hurt today. Spouse had stated previously that he often has knee pain d/t arthritis. 12/09/18 1630 Reports that the top of his left foot hurts. Pain 8/10. Doesn't recall hitting it. Doesn't remember if anything happened when he fell the other day. Denies having SOB. Staff reports that he is urinating frequently d/t 2nd lasix dose. No reports, by staff, that pt has not been sleeping well or having confusion outside of baseline. Procedures: Imaging and X-Rays 12/05/18 18:14 CERVICAL SPINE WO CONTRAST [CT] Stat CHEST 2 VIEWS [RAD] Stat HEAD WO CONTRAST [CT] Stat 12/09/18 17:14 FOOT, LEFT 2 VIEWS [RAD] Stat Cardiology Procedures 12/06/18 09:29 EKG NOW 12/06/18 12:48 Echo W/CF & Cardiac Doppler NOW Abnormal Labs: Abnormal Lab Results 12/05/18 12/05/18 12/05/18 Range/Units 18:00 18:00 19:27 WBC (4.2-12.2) K/uL RBC 3.51 L (4.40-5.70) M/uL Hgb 10.6 L (14.0-18.0) gm/dl Hct 34.5 L (42.0-52.0) % MCV 98.3 H (81-97) fl MCHC 30.7 L (32-36) g/dl RDW 16.7 H (11.5-14.5) % Plt Count 86 L (130-400) K/uL MPV 12.2 H (7.4-10.4) fl Neutrophils % (47-80) % Band Neutrophils % (0-5) % Monocytes % 13.5 H (0-9) % Lymphocytes (16-45) % Monocytes (0-9) % Sodium 135 L (136-145) mmol/L Chloride (98-107) mmol/L Carbon Dioxide 19.0 L (22-29) mmol/L Anion Gap 17.0 H (7-16) BUN 44 H (8-23) mg/dL Creatinine 1.8 H (0.7-1.2) mg/dL POC Glucose (70-110) mg/dL Random Glucose 221 H (74-109) mg/dL Calcium (8.8-10.2) mg/dL Magnesium (1.6-2.4) mg/dL NT-Pro-B Natriuret Pep (<450) pg/mL Urine Protein 30 mg/dl H (NEGATIVE) Urine Glucose (UA) 250 mg/dl H (NEGATIVE) Urine Blood Small H (NEGATIVE) 12/05/18 12/06/18 12/06/18 Range/Units 22:30 06:35 06:35 WBC 2.4 L (4.2-12.2) K/uL RBC 3.08 L (4.40-5.70) M/uL Hgb 9.2 L (14.0-18.0) gm/dl Hct 30.6 L (42.0-52.0) % MCV 99.4 H (81-97) fl MCHC 30.1 L (32-36) g/dl RDW 16.8 H (11.5-14.5) % Plt Count 70 L (130-400) K/uL MPV 11.7 H (7.4-10.4) fl Neutrophils % (47-80) % Band Neutrophils % (0-5) % Monocytes % (0-9) % Lymphocytes 15.0 L (16-45) % Monocytes 21.0 H (0-9) % Sodium (136-145) mmol/L Chloride (98-107) mmol/L Carbon Dioxide (22-29) mmol/L Anion Gap (7-16) BUN 34 H (8-23) mg/dL Creatinine 1.5 H (0.7-1.2) mg/dL POC Glucose 176 H (70-110) mg/dL Random Glucose 160 H (74-109) mg/dL Calcium 8.4 L (8.8-10.2) mg/dL Magnesium (1.6-2.4) mg/dL NT-Pro-B Natriuret Pep (<450) pg/mL Urine Protein (NEGATIVE) Urine Glucose (UA) (NEGATIVE) Urine Blood (NEGATIVE) 12/06/18 12/06/18 12/06/18 Range/Units 06:35 07:30 13:53 WBC (4.2-12.2) K/uL RBC (4.40-5.70) M/uL Hgb (14.0-18.0) gm/dl Hct (42.0-52.0) % MCV (81-97) fl MCHC (32-36) g/dl RDW (11.5-14.5) % Plt Count (130-400) K/uL MPV (7.4-10.4) fl Neutrophils % (47-80) % Band Neutrophils % (0-5) % Monocytes % (0-9) % Lymphocytes (16-45) % Monocytes (0-9) % Sodium (136-145) mmol/L Chloride (98-107) mmol/L Carbon Dioxide (22-29) mmol/L Anion Gap (7-16) BUN (8-23) mg/dL Creatinine (0.7-1.2) mg/dL POC Glucose 144 H 297 H (70-110) mg/dL Random Glucose (74-109) mg/dL Calcium (8.8-10.2) mg/dL Magnesium 1.1 L (1.6-2.4) mg/dL NT-Pro-B Natriuret Pep (<450) pg/mL Urine Protein (NEGATIVE) Urine Glucose (UA) (NEGATIVE) Urine Blood (NEGATIVE) 12/06/18 12/06/18 12/07/18 Range/Units 17:21 21:53 06:13 WBC 2.9 L (4.2-12.2) K/uL RBC 3.02 L (4.40-5.70) M/uL Hgb 9.0 L (14.0-18.0) gm/dl Hct 30.0 L (42.0-52.0) % MCV 99.3 H (81-97) fl MCHC 30.0 L (32-36) g/dl RDW 16.5 H (11.5-14.5) % Plt Count 74 L (130-400) K/uL MPV 11.6 H (7.4-10.4) fl Neutrophils % 44.0 L (47-80) % Band Neutrophils % 6.0 H (0-5) % Monocytes % (0-9) % Lymphocytes (16-45) % Monocytes 24.0 H (0-9) % Sodium (136-145) mmol/L Chloride (98-107) mmol/L Carbon Dioxide (22-29) mmol/L Anion Gap (7-16) BUN (8-23) mg/dL Creatinine (0.7-1.2) mg/dL POC Glucose 301 H 184 H (70-110) mg/dL Random Glucose (74-109) mg/dL Calcium (8.8-10.2) mg/dL Magnesium (1.6-2.4) mg/dL NT-Pro-B Natriuret Pep (<450) pg/mL Urine Protein (NEGATIVE) Urine Glucose (UA) (NEGATIVE) Urine Blood (NEGATIVE) 12/07/18 12/07/18 12/07/18 Range/Units 06:13 06:13 07:56 WBC (4.2-12.2) K/uL RBC (4.40-5.70) M/uL Hgb (14.0-18.0) gm/dl Hct (42.0-52.0) % MCV (81-97) fl MCHC (32-36) g/dl RDW (11.5-14.5) % Plt Count (130-400) K/uL MPV (7.4-10.4) fl Neutrophils % (47-80) % Band Neutrophils % (0-5) % Monocytes % (0-9) % Lymphocytes (16-45) % Monocytes (0-9) % Sodium (136-145) mmol/L Chloride 109 H (98-107) mmol/L Carbon Dioxide (22-29) mmol/L Anion Gap (7-16) BUN 34 H (8-23) mg/dL Creatinine 1.5 H (0.7-1.2) mg/dL POC Glucose 111 H (70-110) mg/dL Random Glucose 120 H (74-109) mg/dL Calcium 8.6 L (8.8-10.2) mg/dL Magnesium (1.6-2.4) mg/dL NT-Pro-B Natriuret Pep 3066.00 H (<450) pg/mL Urine Protein (NEGATIVE) Urine Glucose (UA) (NEGATIVE) Urine Blood (NEGATIVE) 12/07/18 12/08/18 12/08/18 Range/Units 22:00 05:55 05:55 WBC 3.3 L (4.2-12.2) K/uL RBC 3.02 L (4.40-5.70) M/uL Hgb 9.1 L (14.0-18.0) gm/dl Hct 29.7 L (42.0-52.0) % MCV 98.3 H (81-97) fl MCHC 30.6 L (32-36) g/dl RDW 16.2 H (11.5-14.5) % Plt Count 85 L (130-400) K/uL MPV 11.0 H (7.4-10.4) fl Neutrophils % (47-80) % Band Neutrophils % (0-5) % Monocytes % 13.8 H (0-9) % Lymphocytes (16-45) % Monocytes (0-9) % Sodium (136-145) mmol/L Chloride (98-107) mmol/L Carbon Dioxide (22-29) mmol/L Anion Gap (7-16) BUN 40 H (8-23) mg/dL Creatinine 1.5 H (0.7-1.2) mg/dL POC Glucose 142 H (70-110) mg/dL Random Glucose 117 H (74-109) mg/dL Calcium (8.8-10.2) mg/dL Magnesium (1.6-2.4) mg/dL NT-Pro-B Natriuret Pep (<450) pg/mL Urine Protein (NEGATIVE) Urine Glucose (UA) (NEGATIVE) Urine Blood (NEGATIVE) 12/08/18 12/08/18 12/08/18 Range/Units 12:24 16:44 21:49 WBC (4.2-12.2) K/uL RBC (4.40-5.70) M/uL Hgb (14.0-18.0) gm/dl Hct (42.0-52.0) % MCV (81-97) fl MCHC (32-36) g/dl RDW (11.5-14.5) % Plt Count (130-400) K/uL MPV (7.4-10.4) fl Neutrophils % (47-80) % Band Neutrophils % (0-5) % Monocytes % (0-9) % Lymphocytes (16-45) % Monocytes (0-9) % Sodium (136-145) mmol/L Chloride (98-107) mmol/L Carbon Dioxide (22-29) mmol/L Anion Gap (7-16) BUN (8-23) mg/dL Creatinine (0.7-1.2) mg/dL POC Glucose 159 H 135 H 259 H (70-110) mg/dL Random Glucose (74-109) mg/dL Calcium (8.8-10.2) mg/dL Magnesium (1.6-2.4) mg/dL NT-Pro-B Natriuret Pep (<450) pg/mL Urine Protein (NEGATIVE) Urine Glucose (UA) (NEGATIVE) Urine Blood (NEGATIVE) 12/09/18 12/09/18 12/09/18 Range/Units 05:35 07:02 11:40 WBC (4.2-12.2) K/uL RBC (4.40-5.70) M/uL Hgb (14.0-18.0) gm/dl Hct (42.0-52.0) % MCV (81-97) fl MCHC (32-36) g/dl RDW (11.5-14.5) % Plt Count (130-400) K/uL MPV (7.4-10.4) fl Neutrophils % (47-80) % Band Neutrophils % (0-5) % Monocytes % (0-9) % Lymphocytes (16-45) % Monocytes (0-9) % Sodium (136-145) mmol/L Chloride (98-107) mmol/L Carbon Dioxide (22-29) mmol/L Anion Gap (7-16) BUN 35 H (8-23) mg/dL Creatinine 1.3 H (0.7-1.2) mg/dL POC Glucose 167 H 169 H (70-110) mg/dL Random Glucose 191 H (74-109) mg/dL Calcium (8.8-10.2) mg/dL Magnesium (1.6-2.4) mg/dL NT-Pro-B Natriuret Pep 2086.00 H (<450) pg/mL Urine Protein (NEGATIVE) Urine Glucose (UA) (NEGATIVE) Urine Blood (NEGATIVE) 12/09/18 12/09/18 12/10/18 Range/Units 17:31 22:00 06:20 WBC (4.2-12.2) K/uL RBC (4.40-5.70) M/uL Hgb (14.0-18.0) gm/dl Hct (42.0-52.0) % MCV (81-97) fl MCHC (32-36) g/dl RDW (11.5-14.5) % Plt Count (130-400) K/uL MPV (7.4-10.4) fl Neutrophils % (47-80) % Band Neutrophils % (0-5) % Monocytes % (0-9) % Lymphocytes (16-45) % Monocytes (0-9) % Sodium (136-145) mmol/L Chloride (98-107) mmol/L Carbon Dioxide (22-29) mmol/L Anion Gap (7-16) BUN 37 H (8-23) mg/dL Creatinine 1.4 H (0.7-1.2) mg/dL POC Glucose 219 H 261 H (70-110) mg/dL Random Glucose 155 H (74-109) mg/dL Calcium (8.8-10.2) mg/dL Magnesium (1.6-2.4) mg/dL NT-Pro-B Natriuret Pep (<450) pg/mL Urine Protein (NEGATIVE) Urine Glucose (UA) (NEGATIVE) Urine Blood (NEGATIVE) 12/10/18 Range/Units 11:36 WBC (4.2-12.2) K/uL RBC (4.40-5.70) M/uL Hgb (14.0-18.0) gm/dl Hct (42.0-52.0) % MCV (81-97) fl MCHC (32-36) g/dl RDW (11.5-14.5) % Plt Count (130-400) K/uL MPV (7.4-10.4) fl Neutrophils % (47-80) % Band Neutrophils % (0-5) % Monocytes % (0-9) % Lymphocytes (16-45) % Monocytes (0-9) % Sodium (136-145) mmol/L Chloride (98-107) mmol/L Carbon Dioxide (22-29) mmol/L Anion Gap (7-16) BUN (8-23) mg/dL Creatinine (0.7-1.2) mg/dL POC Glucose 238 H (70-110) mg/dL Random Glucose (74-109) mg/dL Calcium (8.8-10.2) mg/dL Magnesium (1.6-2.4) mg/dL NT-Pro-B Natriuret Pep (<450) pg/mL Urine Protein (NEGATIVE) Urine Glucose (UA) (NEGATIVE) Urine Blood (NEGATIVE) Condition at Discharge: (2) Stable Discharge Medications - Discharge Medications Home Medications: Ambulatory Orders Ferrous Sulfate 325 mg PO DAILY 03/24/16 [Last Taken 12/05/18] Magnesium Oxide [Mag Ox] 400 mg PO BID 03/24/16 [Last Taken 12/05/18] Metformin HCl 1,000 mg PO BIDWM 03/24/16 [Last Taken 12/05/18] Tamsulosin HCl 0.4 mg PO DAILY 03/25/16 [Last Taken 12/05/18] Timolol Maleate [Timoptic] 1 drop EACH EYE BID 03/25/16 [Last Taken 12/05/18] Omeprazole 20 mg PO DAILYAC 09/08/16 [Last Taken 12/05/18] Baclofen 10 mg PO TID PRN 12/05/18 [Last Taken 12/05/18] Guaifenesin [Mucinex] 600 mg PO BID 12/05/18 [Last Taken 12/05/18] Insulin Glargine,Hum.rec.anlog [Lantus Solostar] 9 units SQ DAILYWM 12/05/18 [Last Taken 12/05/18] Latanoprost 0.005% Opth Marya [Xalatan] 1 drop EACH EYE QHS 12/05/18 [Last Taken 12/05/18] Insulin Glargine,Hum.rec.anlog [Lantus Solostar] 11 units SQ QHS 12/06/18 [Last Taken Unknown] Insulin Lispro [Humalog Kwikpen U-100] 0 unit SQ WMEALS 12/06/18 [Last Taken Unknown] Lenalidomide [Revlimid] 10 mg PO DAILY 12/06/18 [Last Taken Unknown] Acetaminophen [Tylenol 325Mg] 650 mg PO Q4H PRN tablet 12/10/18 [Last Taken Unknown] Furosemide [Lasix] 20 mg PO BIDDIUR tablet 12/10/18 [Last Taken Unknown] Loratadine [Claritin] 10 mg PO DAILY tablet 12/10/18 [Last Taken Unknown] Potassium Chloride [Klor-Con] 20 meq PO DAILY tablet. 12/10/18 [Last Taken Unknown] Discharge Plan - Discharge Instructions Activity at Discharge: As Per Physical Therapy Diet at Discharge: Diabetic Diet, Low Salt Diet Quality Measures - Quality Measures Quality Measures: Advance Directives, Documentation of Current Medications in Medical Record, Elder Maltreatment Screen and Follow-Up Plan, Screening for High Blood Pressure and F/U Documented - Current Medications Quality Measure: Measure #130: Documentation of Current Medications Documentation of Current Medications: <Current Medications Documented/Reviewed> [G7938] - Blood Pressure Screening Quality Measure: Screening for High Blood Pressure and Follow-Up Documented Does Patient Have Any of the Following: Active Dx of HTN Blood Pressure Classification: Hypertensive Reading Systolic Measurement: 148 Diastolic Measurement: 67 Screening for High Blood Pressure: Patient Exclusion, Hx of HTN [G9744] - Advance Directives Quality Measure: Measure #47: Care Plan Advance Directives Established: No Advance Directives Information Provided To Patient: Yes Advance Directives on File: No Living Will: No Power of Green Chain Puller: No Advance Care Planning: <Care Plan/Decision Maker Documented; Discussed & Documented> [1123F] - Elder Abuse Suspicion Index Screening: Elder Abuse Suspicion Index Screening Rely on people for bathing, dressing, shopping, banking, etc: No Prevented from getting food, clothes, medication, etc: No Made to feel shamed or threatened by someone: No Forced to sign papers or use money against will: No Feel afraid, touched in ways not wanted or hurt physically: No Poor eye contact, withdrawn, malnourished, cuts or bruises: No Screening Result: Negative result EASI Reference Information: Sanju HOFFMAN, Renetta C, Karly D, Amilcar Chow.Development and validation of a tool to assist physicians identification of elder abuse: The Elder Abuse Suspicion Index (EASI ). Journal of Elder Abuse and Neglect, 2008; 20 (3): 276-300. - Elder Maltreatment Screen Quality Measures: Elder Maltreatment Screen and Follow-Up Plan Elder Maltreatment Screen: <Negative, No Follow-Up Plan Required> [G8734]
== END 2018-12-10 14:15 | DRG 947 ==
LOC: ER 18:10 → MEDSURG 21:05
PROVIDERS: ADMIT Internal Medicine; ATTEND Internal Medicine
DX: R53.1 Weakness (principal); J18.9 Pneumonia, unspecified organism; A41.9 Sepsis, unspecified organism; R41.82 Altered mental status, unspecified; J32.9 Chronic sinusitis, unspecified; N18.3 Chronic kidney disease, stage 3 (moderate); R09.02 Hypoxemia; I10 Essential (primary) hypertension; K21.9 Gastro-esophageal reflux disease without esophagitis; E11.65 Type 2 diabetes mellitus with hyperglycemia; Z79.4 Long term (current) use of insulin; M19.90 Unspecified osteoarthritis, unspecified site; Z87.891 Personal history of nicotine dependence; Z86.73 Personal history of transient ischemic attack (TIA), and cerebral infarction without residual deficits; Z87.442 Personal history of urinary calculi; Z85.9 Personal history of malignant neoplasm, unspecified; W18.39XA Other fall on same level, initial encounter; Y92.019 Unspecified place in single-family (private) house as the place of occurrence of the external cause
CPT/HCPCS: 36416; 70450; 71046; 72125; 80048; 80053; 81001; 82948; 83605; 83735; 83880; 84484; 85025; 85027; 85610; 93005; 93010; 93306; 96361; 96365; 96375; 99223; 99233; 99239; 99285; J0456; J0696; J1200; J7030; J7050

== ENCOUNTER 2019-03-18 20:25 | Emergency (ER) | payer MEDICARE ==
--- NOTE | 2019-03-18 20:36 | Emergency Department Record ---
History of Present Illness - General Stated Complaint: LOW BLOOD SUGAR Time Seen by Provider: 03/18/19 20:27 Source: Patient, EMS Mode of Arrival: EMS Limitations: No limitations - History of Present Illness Initial comments: 78 yo male presents to ED for evaluation of "high blood sugar" at his [facility] home. Per EMS< accu check on scene was 201, patient denies symptoms on examination and reports that he is feeling well. Patient denies nausea, vomiting, abdominal pain, or generalized weakness symptoms. Patient denies recent illness, fevers, chills, or urinary symptoms. -: Hour(s) Improves with: None Worsens with: None Associated Symptoms: Denies other symptoms - [place] Coma Scale Eye Response: (4) Open spontaneously Motor Response: (6) Obeys commands Verbal Response: (5) Oriented Ayse Total: 15 - Related Data Home Medications Medication Instructions Recorded Confirmed Last Taken Cholecalciferol (Vitamin D3) 1,000 unit PO DAILY 03/18/19 03/18/19 Unknown [Vitamin D3] Furosemide [Lasix] 30 mg PO BIDDIUR 03/18/19 Unknown Latanoprost 0.005% Opth Marya 1 drop OP DAILY 03/18/19 03/18/19 Unknown [Xalatan] Timolol Maleate 0.5% 5Ml Btl 1 drop OP QHS 03/18/19 03/18/19 Unknown [Timoptic] Previous Rx's Medication Instructions Recorded Loratadine [Claritin] 10 mg PO DAILY tablet 12/10/18 Allergies Allergy/AdvReac Type Severity Reaction Status Date / Time No Known Drug Allergies Allergy Verified 12/05/18 18:34 Review of Systems Constitutional: Denies: Chills, Fever, Malaise, Night sweats Eyes: Denies: Eye discharge, Eye pain ENT: Denies: Congestion, Ear pain, Epistaxis Respiratory: Denies: Cough, Dyspnea Cardiovascular: Denies: Chest pain, Dyspnea on exertion Endocrine: Denies: Fatigue, Heat or cold intolerance Gastrointestinal: Denies: Abdominal pain, Nausea, Vomiting Genitourinary: Denies: Incontinence, Retention Musculoskeletal: Denies: Arthralgia, Back pain Skin: Denies: Bruising, Change in color Neurological: Denies: Abnormal gait, Confusion, Headache, Seizure Psychiatric: Denies: Anxiety Hematological/Lymphatic: Denies: Anemia, Blood Clots Past Medical History - SOCIAL HISTORY Smoking Status: Former smoker Drug Use: None - RESPIRATORY Hx Respiratory Disorders: Yes Hx Bronchitis: Yes Hx Pneumonia: Yes - CARDIOVASCULAR Hx Cardio Disorders: Yes Hx Hypertension: Yes Hx Vascular Disease: Yes Comment:: aortic valve replacement 2011 - GI Hx GI Disorders: Yes Hx Reflux: Yes - ENDOCRINE Hx Endocrine Disorders: Yes Hx Diabetes: Yes Hx Thyroid Disease: No Comment:: blood sugars a little high due to steroids around 200 Family Medical History Hx Cancer: Brother/Sister Hx Heart Disease: Father, Mother Physical Exam - General General Appearance: Alert, Oriented x3, Cooperative, No acute distress Limitations: No limitations - Head Head exam: Atraumatic, Normocephalic, Normal inspection Head exam detail: negative: Abrasion, Contusion, Gloria's sign, General te nderness, Hematoma, Laceration - Eye Eye exam: Normal appearance. negative: Conjunctival injection, Periorbital swelling, Periorbital tenderness, Scleral icterus - ENT Ear exam: negative: Auricular hematoma, Auricular trauma Nasal Exam: negative: Active bleeding, Discharge, Dried blood, Foreign body Mouth exam: negative: Drooling, Laceration, Muffled voice, Tongue elevation - Neck Neck exam: Normal inspection. negative: Meningismus, Tenderness - Respiratory Respiratory exam: Normal lung sounds bilaterally. negative: Rales, Respiratory distress, Rhonchi, Stridor - Cardiovascular Cardiovascular Exam: Regular rate, Normal rhythm, Normal heart sounds - GI/Abdominal GI/Abdominal exam: Soft. negative: Rebound, Rigid, Tenderness - Rectal Rectal exam: Deferred - exam: Deferred - Extremities Extremities exam: Pedal edema. negative: Calf tenderness, Tenderness - Back Back exam: Denies: CVA tenderness (R), CVA tenderness (L) - Neurological Neurological exam: Alert, Normal gait, Oriented X3 - Psychiatric Psychiatric exam: Normal affect, Normal mood - Skin Skin exam: Normal color. negative: Abrasion Type of lesion: negative: abrasion Course - Reevaluation(s) Reevaluation #1: 03/18/19 20:31 Accu check was performed on arrival, glucose is 199. Will obtain CBC and BMP to exclude an acute metabolic abnormality. Reevaluation #2: 03/18/19 21:12 Laboratory studies were reviewed and appear grossly unremarkable for an acute process. No evidence for an acute metabolic process. patient appears stable for discharge back to his [facility] home at this time. Medical Decision Making - Lab Data Result diagrams: 03/18/19 20:30 03/18/19 20:30 Disposition Disposition: Discharge Clinical Impression: Borderline hyperglycemia Disposition: Home, Self-Care Condition: (2) Stable Instructions: Type 2 Diabetes in Adults (ED) Additional Instructions: Return to ED if your symptoms worsen or if you have any concerns. Follow-up with your family doctor in 3-5 days as directed. Time of Disposition: 21:13 Quality - Quality Measures Quality Measures: N/A - Blood Pressure Screening Does Patient Have Any of the Following: No Blood Pressure Classification: Pre-Hypertensive BP Reading Systolic Measurement: 116 Diastolic Measurement: 88 Screening for High Blood Pressure: < Pre-Hypertensive BP, F/U Documented > [G8950] Pre-Hypertensive Follow-up Interventions: Referral to alternative/primary care provider.
[2019-03-18 20:47] LABS: ABSOLUTE NEUTROPHIL COUNT 1.23; HEMATOCRIT 36.3 % (42.0-52.0); HEMOGLOBIN 11.8 gm/dl (14.0-18.0); MEAN CELL VOLUME 99.2 fl (81-97); MEAN CORPUSCULAR HEMOGLOBIN 32.2 pg (27-33); MEAN CORPUSCULAR HGB CONC 32.5 g/dl (32-36); MEAN PLATELET VOLUME 10.6 fl (7.4-10.4); PLATELET COUNT 146 K/uL (130-400); RED BLOOD COUNT 3.66 M/uL (4.40-5.70); RED CELL DISTRIBUTION WIDTH 16.9 % (11.5-14.5)
[2019-03-18 21:08] LABS: CREATININE 1.4 mg/dL (0.7-1.2)
[2019-03-18 21:15] LABS: PLATELET ESTIMATE NORMAL (NORMAL)
[2019-03-18 21:16] LABS: ANISOCYTOSIS 2+; MICROCYTOSIS 1+
== END 2019-03-18 21:47 | disposition home or self-care (01) ==
LOC: ER 20:25
DX: R73.9 Hyperglycemia, unspecified (principal); Z95.2 Presence of prosthetic heart valve; I10 Essential (primary) hypertension
CPT/HCPCS: 36416; 80048; 82948; 85027; 99283; 99284

== ENCOUNTER 2019-03-29 16:49 | Emergency (ER) | payer MEDICARE ==
--- NOTE | 2019-03-29 17:16 | Emergency Department Record ---
History of Present Illness - General Chief Complaint: Chest Pain Stated Complaint: CHEST PAIN Time Seen by Provider: 03/29/19 17:05 Source: Family Mode of Arrival: EMS Limitations: Altered mental status - History of Present Illness Initial Comments: The patient is here due to complaining of abdominal and chest pain at his foster alf 2-3 hours ago. The patient is a resident of [facility] due to severe dementia and per the vulcanizing machine operator Ksenia he did complain of the pain. Due to that she called an ambulance. The patient denied any pain to EMS and to the nurse and myself after further questioning. He denies any pain in his chest or abdomen but states he is having buttock pain from the cart. There is no hx of nausea, vomiting, diarrhea, fever, SOB, HENRY or hyperglycemia. He has no cardiac issues per his who is now providing the hx. Due to the patient's hx of extensive dementia there is no way to obtain any further hx. MD Complaint: Other Onset/Timin -: Hour(s) - Related Data Home Medications Medication Instructions Recorded Confirmed Last Taken Baclofen 10 mg PO TID 03/29/19 03/29/19 Unknown Clonidine HCl [Catapres] 0.5 mg PO DAILY PRN 03/29/19 03/29/19 Unknown Ferrous Sulfate [High Potency Iron] 65 mg PO DAILY 03/29/19 03/29/19 Unknown Glipizide [Glipizide ER] 5 mg PO DAILY 03/29/19 03/29/19 Unknown Insulin Glargine,Hum.rec.anlog 14 unit SQ QHS 03/29/19 03/29/19 Unknown [Lantus] Lenalidomide [Revlimid] 10 mg PO QHS 03/29/19 03/29/19 Unknown Metformin HCl 1,000 mg PO BID 03/29/19 03/29/19 Unknown Omeprazole [Prilosec] 20 mg PO DAILY 03/29/19 03/29/19 Unknown Quetiapine Fumarate [Seroquel Xr] 50 mg PO DAILY 03/29/19 03/29/19 Unknown Trazodone HCl 50 mg PO QHS 03/29/19 03/29/19 Unknown Previous Rx's Medication Instructions Recorded Loratadine [Claritin] 10 mg PO DAILY tablet 12/10/18 Allergies Allergy/AdvReac Type Severity Reaction Status Date / Time No Known Drug Allergies Allergy Verified 03/29/19 17:09 Travel Screening - Travel/Exposure Within Last 30 Days Have you traveled within the last 30 days?: No Review of Systems Constitutional: Denies: Chills, Fever Eyes: Denies: Eye discharge ENT: Denies: Congestion Respiratory: Denies: Cough, Dyspnea Cardiovascular: Denies: Chest pain Endocrine: Denies: Fatigue Gastrointestinal: Denies: Nausea Genitourinary: Denies: Dysuria Musculoskeletal: Denies: Arthralgia, Other Skin: Denies: Bruising Neurological: Reports: Confusion (chronic.) Past Medical History - SOCIAL HISTORY Smoking Status: Former smoker Drug Use: None - RESPIRATORY Hx Respiratory Disorders: Yes Hx Bronchitis: Yes Hx Pneumonia: Yes - CARDIOVASCULAR Hx Cardio Disorders: Yes Hx Hypertension: Yes Hx Vascular Disease: Yes Comment:: aortic valve replacement 2011 - NEURO Hx Neuro Disorders: Yes Hx CVA: Yes - GI Hx GI Disorders: Yes Hx Reflux: Yes - Hx Genitourinary Disorders: Yes Hx Prostate Problems: Yes (BPH) Hx Renal Disease: Yes (Stage 3) - ENDOCRINE Hx Endocrine Disorders: Yes Hx Diabetes: Yes Hx Thyroid Disease: No Comment:: blood sugars a little high due to steroids around 200 - MUSCULOSKELETAL Hx Musculoskeletal Disorders: Yes Hx Arthritis: Yes (OA) Comment:: OSTEOPENIA - PSYCH Hx Psych Problems: No - HEMATOLOGY/ONCOLOGY Hx Hematology/Oncology Disorders: Yes Hx Cancer: Yes (multiple myeloma) Family Medical History Hx Cancer: Brother/Sister Hx Heart Disease: Father, Mother Physical Exam - General General Appearance: Alert, Cooperative, No acute distress - Head Head exam: Atraumatic, Normocephalic - Eye Eye exam: Normal appearance, PERRL - ENT Throat exam: Normal inspection. negative: Tonsillar erythema, Tonsillar exudate - Neck Neck exam: Normal inspection, Full ROM. negative: Tenderness - Respiratory Respiratory exam: Normal lung sounds bilaterally. negative: Respiratory distress - Cardiovascular Cardiovascular Exam: Regular rate, Normal rhythm, Normal heart sounds. negative: Diastolic murmur - GI/Abdominal GI/Abdominal exam: Soft, Normal bowel sounds. negative: Tenderness - Extremities Extremities exam: Normal inspection, Full ROM, Normal capillary refill. negative: Joint swelling, Tenderness - Neurological Neurological exam: Abnormal gait (chronic.), Alert. negative: Altered, Motor sensory deficit, Normal gait, Oriented X3 (The patient is oriented to name and day and age but not place and year. That is normal per the patient's .) - Skin Skin exam: negative: Rash Course Vital Signs 03/29/19 17:03 Temperature 97.5 F L Pulse Rate 69 Respiratory 20 Rate Blood Pressure 152/141 Pulse Ox 99 - Reevaluation(s) Reevaluation #1: The patient is doing very well at this time. He has denied any pain or discomfort for his entire stay in the ER. Presently after again questioning the patient he denies any CP, SOB, AP, or back pain. The patient is pleasantly confused which is his normal mental status per his . We will discharge him back home and have him F/U with his PCP next week. 03/29/19 18:25 Medical Decision Making - Data Complexity MDM Data: Labs Ordered and/or Reviewed, X-Ray Ordered and/or Reviewed, EKG Ordered and/or Reviewed - Lab Data Result diagrams: 03/29/19 17:19 03/29/19 17:19 - EKG Data -: EKG Interpreted by Me EKG: No Acute Changes, Normal EKG - Radiology Data Radiology results: Report reviewed (CXR and Pelvis: Neg for any acute changes.) Disposition Disposition: Discharge Clinical Impression: History of CVA (cerebrovascular accident) Disposition: Home, Self-Care Condition: (2) Stable Instructions: Chest Pain (ED) Additional Instructions: Please continue your regular medicines and please see your family doctor for recheck next week. Return to the ER for any worsening symptoms. Forms: Patient Portal Access Time of Disposition: 18:28 Quality - Quality Measures Quality Measures: N/A - Blood Pressure Screening View Details: Yes Does Patient Have Any of the Following: Active Dx of HTN Blood Pressure Classification: Hypertensive Reading Systolic Measurement: 152 Diastolic Measurement: 141 Screening for High Blood Pressure: Patient Exclusion, Hx of HTN [[id number]]
[2019-03-29 17:23] LABS: ABSOLUTE NEUTROPHIL COUNT 3.12; BASO % 0.4 % (0-6); EOS % 4.9 % (0-6); GRAN % 55.1 % (47-80); HEMATOCRIT 37.4 % (42.0-52.0); HEMOGLOBIN 11.4 gm/dl (14.0-18.0); LYMPH % 28.3 % (16-45); MEAN CELL VOLUME 99.7 fl (81-97); MEAN CORPUSCULAR HEMOGLOBIN 30.4 pg (27-33); MEAN CORPUSCULAR HGB CONC 30.5 g/dl (32-36); MEAN PLATELET VOLUME 12.3 fl (7.4-10.4); MONO % 11.3 % (0-9); PLATELET COUNT 101 K/uL (130-400); RED BLOOD COUNT 3.75 M/uL (4.40-5.70); RED CELL DISTRIBUTION WIDTH 16.4 % (11.5-14.5); WHITE BLOOD COUNT W/O DIFF 5.7 K/uL (4.2-12.2)
[2019-03-29 17:31] LABS: BLOOD UREA NITROGEN 33 mg/dL (8-23); CREATININE 1.4 mg/dL (0.7-1.2); EST GLOMERULAR FILTRATION RATE 52 mL/min
[2019-03-29 17:32] LABS: TOTAL PROTEIN 6.8 g/dL (6.6-8.7)
[2019-03-29 17:34] LABS: GLUCOSE,RANDOM 180 mg/dL (74-109)
[2019-03-29 17:36] LABS: ALB/GLOB RATIO 1.5 (1.1-1.8); ALBUMIN 4.1 g/dL (4.0-5.0); ALT/SGPT 17 U/L (<41); AST/SGOT 13 U/L (10.0-50.0)
[2019-03-29 17:37] LABS: ALKALINE PHOSPHATASE 96 U/L (40-129)
--- NOTE | 2019-04-01 07:35 | RADIOLOGY REPORT ---
EXAM: CHEST, TWO VIEWS HISTORY: CHEST PAIN AND WEAKNESS. TECHNIQUE: Upright AP and lateral views of the chest were obtained. Comparison: Two view chest radiographic examination dated 12/05/18. FINDINGS: Post median sternotomy changes are redemonstrated. The heart projects mildly prominent in size. No pulmonary venous hypertension is seen. The thoracic aorta is tortuous and atherosclerotic. Minor linear atelectasis versus scarring is demonstrated within the lateral lung bases. No lung consolidation, costophrenic angle blunting or pneumothorax. Degenerative changes are scattered within the visualized spine. One of the median sternotomy wires is again noted to be fractured. IMPRESSION: 1. POST MEDIAN STERNOTOMY CHANGES REDEMONSTRATED. 2. MILD CARDIOMEGALY WITHOUT PULMONARY VENOUS HYPERTENSION. 3. MINOR LINER SCARRING VERSUS ATELECTASIS WITHIN THE LUNG BASES. JOB NUMBER: [id number] MTDD
--- NOTE | 2019-04-01 07:39 | RADIOLOGY REPORT ---
EXAM: AP PELVIS HISTORY: HIP PAIN. NO KNOWN INJURY. MULTIPLE MYELOMA HISTORY. TECHNIQUE: Two AP views of the pelvis were obtained. Comparison: Radiographic examination of the lumbar spine dated 10/20/18. Encounter: Initial. FINDINGS: There is borderline to mild osteopenia. No acute fracture nor dislocation. There are moderate osteoarthritic changes of each hip. There are moderate degenerative changes of the lumbar spine associated with levoconvex scoliosis. The sacroiliac joints are symmetric and minimally degenerated. No definite lytic or blastic bone lesion is seen. IMPRESSION: 1. NO ACUTE FRACTURE NOR DISLOCATION. NO DEFINITE LYTIC OR BLASTIC BONE LESION. 2. MODERATE DEGENERATIVE CHANGES OF EACH HIP. JOB NUMBER: [id number] MTDD
== END 2019-03-29 18:55 | disposition home or self-care (01) ==
LOC: ER 16:49
DX: R07.9 Chest pain, unspecified (principal); R10.9 Unspecified abdominal pain; R53.1 Weakness; E11.9 Type 2 diabetes mellitus without complications; I10 Essential (primary) hypertension; F03.90 Unspecified dementia, unspecified severity, without behavioral disturbance, psychotic disturbance, mood disturbance, and anxiety; Z79.4 Long term (current) use of insulin; Z87.891 Personal history of nicotine dependence; Z86.73 Personal history of transient ischemic attack (TIA), and cerebral infarction without residual deficits
CPT/HCPCS: 36416; 71046; 72170; 80053; 82948; 84484; 85025; 93005; 93010; 99284